=== PATIENT | male | born 1960 ===

== ENCOUNTER 2018-01-04 21:12 | Inpatient (IN) | payer MEDICAID ==
--- NOTE | 2018-01-04 22:00 | ED PDOC ---
HPI: Abdomen Time Seen by Provider: 01/04/18 21:19 Chief Complaint (Nursing): Abdominal Pain Chief Complaint (Provider): Abdominal Pain History Per: Patient History/Exam Limitations: no limitations Onset/Duration Of Symptoms: Days Current Symptoms Are (Timing): Still Present Additional Complaint(s): 57 y/o female with a PMHx of ulcerative colitis presents to the ED for evaluation of abdominal pain, onset two months ago. Patient reports he was recently hospitalized at [facility] for approximately 2 months and discharged home a few days ago. Upon returning home, patient reports pain worsened despite medications prescribed to him. Patient additionally reports pain is associated with blood in diarrhea, 10-15 pounds of unintentional weight loss, lack of appetite and generalized weakness. Patient states he was unaware of fevers but was told by EMS he had a fever. PMD: No Provider Past Medical History Reviewed: Historical Data, Nursing Documentation, Vital Signs Vital Signs: Last Vital Signs Temp 98.6 F 01/05/18 03:52 Pulse 112 H 01/05/18 03:52 Resp 20 01/05/18 03:52 BP 129/83 01/05/18 03:52 Pulse Ox 98 01/05/18 03:04 - Medical History Other PMH: Ulcerative Colitis - Surgical History Surgical History: No Surg Hx - Family History Family History: States: Unknown Family Hx - Home Medications Home Medications: Ambulatory Orders Medication Instructions Recorded Mesalamine [Lialda] 1 tab PO QID 01/05/18 predniSONE [predniSONE Tab] 1 tab PO ASDIR 01/05/18 - Allergies Allergies/Adverse Reactions: Allergies Allergy/AdvReac Type Severity Reaction Status Date / Time No Known Allergies Allergy Verified 01/04/18 21:19 Review of Systems ROS Statement: Except As Marked, All Systems Reviewed And Found Negative Constitutional: Positive for: Fever, Weakness, Weight loss Gastrointestinal: Positive for: Abdominal Pain, Diarrhea, Other (Decreased Appetite) Physical Exam - Reviewed Nursing Documentation Reviewed: Yes Vital Signs Reviewed: Yes - Physical Exam Appears: Positive for: No Acute Distress Head Exam: Positive for: ATRAUMATIC, NORMOCEPHALIC Skin: Negative for: Normal Color (vitiligo) Eye Exam: Positive for: Normal appearance, EOMI, PERRL ENT: Positive for: Other (Dry Mucous Membranes) Neck: Positive for: Normal, Painless ROM Cardiovascular/Chest: Positive for: Tachycardia Respiratory: Positive for: Normal Breath Sounds. Negative for: Respiratory Distress Gastrointestinal/Abdominal: Positive for: Tenderness (Mild diffuse tenderness) Extremity: Positive for: Normal ROM. Negative for: Deformity Neurologic/Psych: Positive for: Alert, Oriented. Negative for: Motor/Sensory Deficits - Laboratory Results Result Diagrams: 01/04/18 22:11 01/04/18 22:11 - ECG O2 Sat by Pulse Oximetry: 100 (RA) Pulse Ox Interpretation: Normal Medical Decision Making Medical Decision Making: Time: 2144 Impression: 57 y/o male with abdominal pain, weight loss and diarrhea, insetting of ulcerative colitis Plan: -- CT Abd/Pelvis IV Contrast -- EKG -- CMP -- Lact Acid, Plasma -- Lipase -- ED Urine Dipstick -- CBC with differentials -- PTT -- Prothrombin Time -- CXR Portable -- Tylenol 975 mg PO -- Blood Culture -- Stool culture -- Heplock Insertion -- Urinalysis 0046 Abd/Pelvis CT FINDINGS: Lung bases: Unremarkable. No mass. No consolidation. ABDOMEN: Liver: Unremarkable. No mass. Gallbladder and bile ducts: Unremarkable. No calcified stones. No ductal dilation. Pancreas: Unremarkable. No mass. No ductal dilation. No CT findings of acute pancreatitis. Spleen: Unremarkable. No splenomegaly. Adrenals: Unremarkable. No mass. Kidneys and ureters: Unremarkable. No solid mass. No hydronephrosis. Stomach and bowel: Air-fluid levels throughout the colon suggests a diarrheal state. Perhaps mild colon wall thickening mostly in the descending and rectosigmoid colon. Prominent gaseous dilation of the transverse colon with perhaps mild wall thickening. Prominent vessels involving the PELVIS: Appendix: No findings to suggest acute appendicitis. Bladder: Unremarkable. No mass. Reproductive: Unremarkable as visualized. ABDOMEN and PELVIS: Intraperitoneal space: Unremarkable. No free air. No significant fluid collection. Bones/joints: No acute fracture. No dislocation. Soft tissues: Unremarkable. Vasculature: See above. Lymph nodes: Unremarkable. No enlarged lymph nodes. IMPRESSION: 1. Inflammatory or infectious colitis involving mostly the transverse colon to the rectum. 2. No CT findings of acute pancreatitis. Dictated and Authenticated by: Fredi Walker MD 01/05/2018 12:46 AM Eastern Time ([place] & [place]) 2112 Labs reviewed and show no significant abnormality except for elevated lactic acid level most likely related to sever dehydration given patient's history of diarrhea. Ordered additional IV fluid bolus and IV cipro and flagyl. Patient is to be admitted for dehydration and sepsis. Will speak to Dr. Mak, the hospitalist, for admission. Scribe Attestation: Documented by Rolando Canada acting as a scribe for Daquan Myers MD. Provider Scribe Attestation: All medical record entries made by the Scribe were at my direction and personally dictated by me. I have reviewed the chart and agree that the record accurately reflects my personal performance of the history, physical exam, medical decision making, and the department course for this patient. I have also personally directed, reviewed, and agree with the discharge instructions and disposition. Disposition - Clinical Impression Clinical Impression: Abdominal pain, Dehydration, Sepsis - Patient ED Disposition Is Patient to be Admitted: Yes - Disposition Disposition Time: 01:34 Condition: FAIR
[2018-01-04] MEDS ORDERED: Sodium Chloride 0.9% 1,000 ML IV STA ×2 (22:10→23:53)
[2018-01-04 22:22] LABS: BASO % 0.2 % (0.0-2.0); HEMOGLOBIN 9.8 g/dL (12.0-18.0); LYMPH # 0.4 K/uL (1.0-4.3); LYMPH % 15.8 % (20.0-40.0); MEAN CORPUSCULAR HEMOGLOBIN 29.9 pg (27.0-31.0); MEAN CORPUSCULAR HGB CONC 32.2 g/dL (33.0-37.0); MEAN PLATELET VOLUME 8.5 fl (7.2-11.7); MONO # 0.1 K/uL (0.0-0.8); MONO % 5.4 % (0.0-10.0); NEUT # 1.9 K/uL (1.8-7.0); NEUT % 78.6 % (50.0-75.0); NRBC % 1.5 % (0.0-0.0); RBC 3.26 Mil/uL (4.40-5.90); WHITE BLOOD COUNT 2.5 K/uL (4.8-10.8)
[2018-01-04 22:31] LABS: INR 1.5; PROTHROMBIN TIME 16.4 Seconds (9.8-13.1)
[2018-01-04 22:33] LABS: PARTIAL THROMBOPLASTIN TIME 28.9 Seconds (25.6-37.1)
[2018-01-04 22:36] LABS: ALB/GLOB RATIO 0.7 (1.0-2.1); ALBUMIN 2.4 g/dL (3.5-5.0); ALT/SGPT 22 U/L (21-72); AST/SGOT 31 U/L (17-59); BLOOD UREA NITROGEN 26 mg/dl (9-20); CALCIUM 7.6 mg/dL (8.4-10.2); GFR NON-AFRICAN AMERICAN > 60; LIPASE 55 U/L (23-300)
[2018-01-04] MEDS ORDERED: Sodium Chloride 0.9% 50 ML IV ONE (23:32)
[2018-01-04] MEDS ORDERED: Iohexol 300 100 ML IJ ONE (23:32)
[2018-01-05] MEDS ORDERED: metroNIDAZOLE 500mg/100ml NS 100 ML IVPB STA (00:51)
[2018-01-05] MEDS ORDERED: Ciprofloxacin 400mg/200ml D5W 400 MG/200 ML BAG IV STA (00:51)
[2018-01-05] MEDS ORDERED: metroNIDAZOLE 500mg/100ml NS 100 ML IVPB ONE (01:53)
[2018-01-05] MEDS ORDERED: Sodium Chloride 0.9% 1,000 ML IV STA (02:28)
[2018-01-05] MEDS ORDERED: Ciprofloxacin 400mg/200ml D5W 400 MG/200 ML BAG IVPB ONE (02:38)
[2018-01-05] MEDS: Dextrose 5%/Lactated Ringer's 1,000 ML IV SCH ×2 (06:52→19:00)
--- NOTE | 2018-01-05 08:44 | RAD ---
Date of service: 01/04/2018 HISTORY: chest pain COMPARISON: No prior. FINDINGS: LUNGS: The lungs are well inflated and clear. PLEURA: No significant pleural effusion identified, no pneumothorax apparent. CARDIOVASCULAR: Normal. OSSEOUS STRUCTURES: No significant abnormalities. VISUALIZED UPPER ABDOMEN: Normal. OTHER FINDINGS: None. IMPRESSION: No active pulmonary disease.
[2018-01-05] MEDS: Ciprofloxacin 400mg/200ml D5W 400 MG/200 ML BAG IVPB SCH ×2 (08:56→21:03)
[2018-01-05] MEDS: metroNIDAZOLE 500mg/100ml NS 100 ML IVPB SCH ×2 (09:05→17:05)
--- NOTE | 2018-01-05 09:07 | CARD ---
APPROVED REPORT Date of service: 01/04/2018 <Conclusion> Sinus tachycardia T wave abnormality, consider lateral ischemia Abnormal ECG
--- NOTE | 2018-01-05 09:33 | CP.PCM.CON ---
History of Present Illness - History of Present Illness History of Present Illness: PGY-4 GI Fellow Consult Note Pt is a 57 yo Hisp Male with reported h/o Ulcerative Colitis (dx 10 years ago, on steroids currently and previously on mesalamine) presenting with abdominal pain and bloody diarrhea. He states he has had chronic epigastric abd pain for weeks to months associated with loose watery, occasionally bloody stools. Pain is mostly non-radiating and worse with PO intake of any kinds. States he has had decreased appetite and not able to each much in the last several months due to these symptoms. States he has been seen and evaluated at both [facility] without clear relief not information about what is going on. States that he had Colonoscopy done about 1 month ago at [place]. States the was prescribed mesalamine in the past, but states he has not been taking for several weeks to months since he though it was making his symptoms worse. 12 point ROS negative other than stated above MHx: See above SurgHx: Denied Meds: Reviewed in MAR/chart FamHx: Denied fam h/o GI Probs SocHx: Denied x 3 All: NKDA Past Patient History - Past Medical History & Family History Past Medical History?: Yes - Past Social History Smoking Status: Never Smoked - CARDIAC Hx Cardiac Disorders: No - PULMONARY Hx Respiratory Disorders: No - NEUROLOGICAL Hx Neurological Disorder: No - HEENT Hx HEENT Problems: No - RENAL Hx Chronic Kidney Disease: No - ENDOCRINE/METABOLIC Hx Endocrine Disorders: No - HEMATOLOGICAL/ONCOLOGICAL Hx Blood Disorders: No - INTEGUMENTARY Hx Dermatological Problems: No - MUSCULOSKELETAL/RHEUMATOLOGICAL Hx Musculoskeletal Disorders: No Hx Falls: No - GASTROINTESTINAL Hx Gastrointestinal Disorders: Yes Hx Colitis: Yes - GENITOURINARY/GYNECOLOGICAL Hx Genitourinary Disorders: No - PSYCHIATRIC Hx Psychophysiologic Disorder: No Hx Substance Use: No - SURGICAL HISTORY Hx Surgeries: No - ANESTHESIA Hx Anesthesia: No Hx Anesthesia Reactions: No Hx Malignant Hyperthermia: No Has any member of the family had a problem w/ anesthesia?: No Meds Allergies/Adverse Reactions: Allergies Allergy/AdvReac Type Severity Reaction Status Date / Time No Known Allergies Allergy Verified 01/04/18 21:19 - Medications Medications: Current Medications Famotidine (Pepcid) 40 mg IVP DAILY MARINA Dextrose/Lactated Ringer's (Dextrose 5%/Lactated Ringer's) 1,000 mls @ 80 mls/ hr IV .[id number] [facility] Stop: 01/06/18 06:27 Last Admin: 01/05/18 06:52 Dose: 80 mls/hr Ciprofloxacin (Cipro 400mg/200ml Dsw) 400 mg in 200 mls @ 200 mls/hr IVPB Q12 MARINA PRN Reason: Protocol Last Admin: 01/05/18 08:56 Dose: 200 mls/hr Metronidazole (Flagyl 500mg/100ml Ns) 100 mls @ 100 mls/hr IVPB Q8 MARINA PRN Reason: Protocol Morphine Sulfate (Morphine) 2 mg IVP Q4 PRN PRN Reason: Pain, moderate (4-7) Physical Exam - Constitutional Appears: No Acute Distress, Unkempt, Chronically Ill - Head Exam Head Exam: ATRAUMATIC, NORMAL INSPECTION - Eye Exam Eye Exam: EOMI. absent: Conjunctival injection, Scleral icterus - ENT Exam ENT Exam: Mucous Membranes Dry, Normal External Ear Exam. absent: Mucous Membranes Moist - Respiratory Exam Respiratory Exam: Clear to Auscultation Bilateral, NORMAL BREATHING PATTERN. absent: Wheezes - Cardiovascular Exam Cardiovascular Exam: REGULAR RHYTHM, RRR - GI/Abdominal Exam GI & Abdominal Exam: Normal Bowel Sounds, Soft, Tenderness (in epigastrum w/o guarding). absent: Bruit, Diminished Bowel Sounds, Distended, Firm, Guarding, Hernia, Hyperactive Bowel Sounds, Hypoactive Bowel Sounds, Mass, Organomegaly, Pulsatile Mass, Rebound, Rigid - Rectal Exam Rectal Exam: Deferred - Extremities Exam Extremities exam: Positive for: normal inspection. Negative for: pedal edema - Neurological Exam Neurological exam: CN II-XII Intact Additional comments: tired, slow speaking - Psychiatric Exam Psychiatric exam: Normal Mood Additional comments: flat affect - Skin Skin Exam: Dry, Intact Results - Vital Signs Recent Vital Signs: Last Vital Signs Temp 98.7 F 01/05/18 08:34 Pulse 102 H 01/05/18 08:34 Resp 18 01/05/18 08:34 BP 132/79 01/05/18 08:34 Pulse Ox 95 01/05/18 08:34 - Labs Result Diagrams: 01/04/18 22:11 01/04/18 22:11 Labs: Laboratory Results - last 24 hr 01/04/18 01/04/18 01/04/18 22:11 22:11 22:11 WBC 2.5 L RBC 3.26 L Hgb 9.8 L Hct 30.3 L MCV 93.0 MCH 29.9 MCHC 32.2 L RDW 17.0 H Plt Count 149 MPV 8.5 Neut % (Auto) 78.6 H Lymph % (Auto) 15.8 L [place] % (Auto) 5.4 Eos % (Auto) 0.0 Baso % (Auto) 0.2 Neut # (Auto) 1.9 Lymph # (Auto) 0.4 L [place] # (Auto) 0.1 Eos # (Auto) 0.0 Baso # (Auto) 0.0 PT INR APTT Sodium 136 Potassium 3.6 Chloride 102 Carbon Dioxide 23 Anion Gap 15 BUN 26 H Creatinine 0.4 L Est GFR ( Amer) > 60 Est GFR (Non-Af Amer) > 60 Random Glucose 125 H Lactic Acid 3.1 H Calcium 7.6 L Total Bilirubin 0.8 AST 31 ALT 22 Alkaline Phosphatase 91 Total Protein 5.8 L Albumin 2.4 L Globulin 3.4 Albumin/Globulin Ratio 0.7 L Lipase 55 C. difficile Ag & Toxin 01/04/18 01/04/18 01/05/18 22:11 23:37 01:50 WBC RBC Hgb Hct MCV MCH MCHC RDW Plt Count MPV Neut % (Auto) Lymph % (Auto) [place] % (Auto) Eos % (Auto) Baso % (Auto) Neut # (Auto) Lymph # (Auto) [place] # (Auto) Eos # (Auto) Baso # (Auto) PT 16.4 H INR 1.5 APTT 28.9 Sodium Potassium Chloride Carbon Dioxide Anion Gap BUN Creatinine Est GFR ( Amer) Est GFR (Non-Af Amer) Random Glucose Lactic Acid 1.7 Calcium Total Bilirubin AST ALT Alkaline Phosphatase Total Protein Albumin Globulin Albumin/Globulin Ratio Lipase C. difficile Ag & Toxin Negative Assessment & Plan - Assessment and Plan (Free Text) Assessment: 57 yo Hisp Male with reported h/o UC presenting with abdominal pain and diarrhea. # Abd Pain, Diarrhea: Unclear etiology. Given reported h/o UC, possible for UC flare and possible infectious diarrhea causing symptoms. CT with signs of possible infectious/inflammatory cause of diarrhea with transverse to rectum involvement. Given abd pain and reported bloody BMs, ischemia is also on the differential. Pt with recent prolonged hospitalization at [place]; therefore , records from that stay would be most helpful in providing history and how best to proceed clinically. Plan: - CTA Abd Pelvis - C diff negative - F/u Stool Cx, O&P - Please obtain records from [facility] regarding recent hospitalization , especially Colonoscopy report Thank you for the consult. Will continue to follow. Please page if questions. Pt seen and examined with Dr. Thompson. Please see his attestation for further recs/changes.
--- NOTE | 2018-01-05 12:04 | CT ---
Date of service: 01/05/2018 PROCEDURE: CT Abdomen and Pelvis with contrast HISTORY: pancreatitis COMPARISON: None. TECHNIQUE: CT scan of the abdomen and pelvis was performed after administration of intravenous contrast. Oral contrast was not administered. Coronal and sagittal reformatted images were obtained. Contrast dose: 95 mL Omnipaque 300 Radiation dose: Total exam DLP = 641.97 mGy-cm. This CT exam was performed using one or more of the following dose reduction techniques: Automated exposure control, adjustment of the mA and/or kV according to patient size, and/or use of iterative reconstruction technique. FINDINGS: LOWER THORAX: There is subsegmental atelectasis in the lung bases. LIVER: Mild hepatomegaly and fatty liver. No gross lesion or ductal dilatation. GALLBLADDER AND BILE DUCTS: The gallbladder is distended. No calcified gallstones. No ductal dilatation. PANCREAS: Normal in size with homogeneous enhancement. No gross lesion or ductal dilatation. SPLEEN: Normal in size and appearance. ADRENALS: No discrete nodule. KIDNEYS AND URETERS: Normal in size with homogeneous enhancement. There are small cortical cysts in the kidneys. No hydronephrosis. No solid mass. VASCULATURE: Unremarkable. No aortic aneurysm. BOWEL: The small bowel loops are normal in caliber. There is moderate dilatation of fluid-filled colon and rectum, diffuse mild circumferential mural thickening and enhancement of the colonic and rectal wall. APPENDIX: Normal appendix. PERITONEUM: No free fluid. No free air. LYMPH NODES: There are prominent mesenteric lymph nodes in the right lower quadrant. BLADDER: Well distended and normal in appearance. REPRODUCTIVE: The prostate gland is normal in size. BONES: No acute fracture. Within normal limits for the patient's age. OTHER FINDINGS: Bilateral small fat containing inguinal hernias, larger on the right. IMPRESSION: Findings are most compatible with acute nonspecific infectious/inflammatory colitis. No evidence of bowel obstruction. Mild hepatomegaly and fatty liver. A preliminary report was provided by [facility].
--- NOTE | 2018-01-05 13:27 | CP.PCM.PCO ---
Assessment & Plan - Assessment and Plan (Free Text) Assessment: Records received from [facility] pt. had multiple admission to [facility] w/ dx of UC s/p Colonoscopy12/23 with colon and rectum biopsy colon L, bx: colonic mucosa with extensive ulceration with prominent acute and chronic inflammation Reactive/regenerative epithelial atypia of residual mucosal lining Negative for CMV (CMV IHC Negative Negative for granulomas, dysplasia or neoplasia Retcum: bx colonic mucosa with mild to moderate chronic colitis (mild crypt distortion, mild to mod chronic lamina propria inflammation Reactive/regenerative epithelial changes Negative for CMV (CMV IHC Negative Negative for granulomas, dysplasia or neoplasia Above d/w Start Solumedrol 30 mg iv q8 PPI IV CTA abdomen/pelvis , eval for ? mesenteric ischemia maintain CLD monitor cbc, cmp in am cont. IV abx
[2018-01-05] MEDS ORDERED: methylPREDNISolone 30 MG in Sodium Chloride 0.9% 50 ML IVPB SCH (13:30)
[2018-01-05] MEDS ORDERED: Iohexol 240 (50 ml) PO ONE (13:38)
--- NOTE | 2018-01-05 16:30 | CP.PCM.HP ---
History of Present Illness - History of Present Illness History of Present Illness: Pt is a 57 y/o male w/ pmhx of Ulcerative Colitis who preented to ED with complaints of worsening abdominal pain and bloody diarrhea. Of note, pt was recently discahrge from [facility] after a 2 month hospitalization for an Acute UC flare. Pt was discharged on Mesalamine and Prednisone but his abdominal pain became worse and he stopped taking mesalamine as he believed it was the culprit to his pain. Denies N/V, fevers, recent travel, lightheadedness. ROS : + generalized weakness PMHX: UC (10 year hx, takes steroids daily) PSurgical Hx: denies. Last colonoscopy 12/23 at [place]. Biopsy negative for neoplasia, +Inflammatory changes c/w UC Medications: Mesalamine 1 tab QID, Prednisone 1 tab PO ASDIR NKDA Social: Denies smoking, alcohol or illicit drug use ] Records received from [facility]- see physician communication note Present on Admission - Present on Admission Any Indicators Present on Admission: No History of DVT/PE: No History of Uncontrolled Diabetes: No Urinary Catheter: No Decubitus Ulcer Present: No Past Patient History - Past Medical History & Family History Past Medical History?: Yes - Past Social History Smoking Status: Never Smoked - CARDIAC Hx Cardiac Disorders: No - PULMONARY Hx Respiratory Disorders: No - NEUROLOGICAL Hx Neurological Disorder: No - HEENT Hx HEENT Problems: No - RENAL Hx Chronic Kidney Disease: No - ENDOCRINE/METABOLIC Hx Endocrine Disorders: No - HEMATOLOGICAL/ONCOLOGICAL Hx Blood Disorders: No - INTEGUMENTARY Hx Dermatological Problems: No - MUSCULOSKELETAL/RHEUMATOLOGICAL Hx Musculoskeletal Disorders: No Hx Falls: No - GASTROINTESTINAL Hx Gastrointestinal Disorders: Yes Hx Colitis: Yes - GENITOURINARY/GYNECOLOGICAL Hx Genitourinary Disorders: No - PSYCHIATRIC Hx Psychophysiologic Disorder: No Hx Substance Use: No - SURGICAL HISTORY Hx Surgeries: No - ANESTHESIA Hx Anesthesia: No Hx Anesthesia Reactions: No Hx Malignant Hyperthermia: No Has any member of the family had a problem w/ anesthesia?: No Meds Allergies/Adverse Reactions: Allergies Allergy/AdvReac Type Severity Reaction Status Date / Time No Known Allergies Allergy Verified 01/04/18 21:19 Physical Exam - Constitutional Appears: No Acute Distress - Head Exam Head Exam: ATRAUMATIC, NORMAL INSPECTION - Eye Exam Eye Exam: Normal appearance, PERRL - ENT Exam ENT Exam: Mucous Membranes Moist - Neck Exam Neck exam: Positive for: Full Rom - Respiratory Exam Respiratory Exam: Clear to Auscultation Bilateral. absent: Rales, Wheezes - Cardiovascular Exam Cardiovascular Exam: REGULAR RHYTHM, +S1, +S2. absent: Systolic Murmur - GI/Abdominal Exam GI & Abdominal Exam: Normal Bowel Sounds, Soft, Tenderness (tenderness to palpation in all quadrant especially in left lower quadrant) - Extremities Exam Extremities exam: Negative for: pedal edema - Neurological Exam Neurological exam: Altered, Oriented x3 - Psychiatric Exam Psychiatric exam: Normal Affect Results - Vital Signs Recent Vital Signs: Last Vital Signs Temp 98.7 F 01/05/18 08:34 Pulse 102 H 01/05/18 08:34 Resp 18 01/05/18 08:34 BP 132/79 01/05/18 08:34 Pulse Ox 95 01/05/18 08:34 - Labs Result Diagrams: 01/04/18 22:11 01/04/18 22:11 Labs: Laboratory Results - last 24 hr 01/04/18 01/04/18 01/04/18 22:11 22:11 22:11 WBC 2.5 L RBC 3.26 L Hgb 9.8 L Hct 30.3 L MCV 93.0 MCH 29.9 MCHC 32.2 L RDW 17.0 H Plt Count 149 MPV 8.5 Neut % (Auto) 78.6 H Lymph % (Auto) 15.8 L [place] % (Auto) 5.4 Eos % (Auto) 0.0 Baso % (Auto) 0.2 Neut # (Auto) 1.9 Lymph # (Auto) 0.4 L [place] # (Auto) 0.1 Eos # (Auto) 0.0 Baso # (Auto) 0.0 PT INR APTT Sodium 136 Potassium 3.6 Chloride 102 Carbon Dioxide 23 Anion Gap 15 BUN 26 H Creatinine 0.4 L Est GFR ( Amer) > 60 Est GFR (Non-Af Amer) > 60 Random Glucose 125 H Lactic Acid 3.1 H Calcium 7.6 L Total Bilirubin 0.8 AST 31 ALT 22 Alkaline Phosphatase 91 Total Protein 5.8 L Albumin 2.4 L Globulin 3.4 Albumin/Globulin Ratio 0.7 L Lipase 55 C. difficile Ag & Toxin 01/04/18 01/04/18 01/05/18 22:11 23:37 01:50 WBC RBC Hgb Hct MCV MCH MCHC RDW Plt Count MPV Neut % (Auto) Lymph % (Auto) [place] % (Auto) Eos % (Auto) Baso % (Auto) Neut # (Auto) Lymph # (Auto) [place] # (Auto) Eos # (Auto) Baso # (Auto) PT 16.4 H INR 1.5 APTT 28.9 Sodium Potassium Chloride Carbon Dioxide Anion Gap BUN Creatinine Est GFR ( Amer) Est GFR (Non-Af Amer) Random Glucose Lactic Acid 1.7 Calcium Total Bilirubin AST ALT Alkaline Phosphatase Total Protein Albumin Globulin Albumin/Globulin Ratio Lipase C. difficile Ag & Toxin Negative Assessment & Plan (1) Colitis Status: Acute (2) Abdominal pain Status: Acute (3) Hematochezia Status: Acute - Assessment and Plan (Free Text) Assessment: 57 y/o male with pmhx of UC presents with abdominal pain and bloody BM's. -Pt states abdominal pain improved but still presents, 1BM this am, no blood -CT Abdomen/Pelvis, signs suggestive of infectious/inflammatory colitis from transverse colon to rectum -Gastroenterology Consulted -C Diff negative, F/U repeat -F/u Stool Cx, O&P -Empiric Abx: Cipro and Flagyl -Angio or Abdomen and Pelvis ordered by GI -Liquid diet -Methylprednisone 30mg IVP q8 -Pepcid daily Discussed Case With Dr. Aubree Muñoz, PGY2
[2018-01-05] MEDS: MethylPREDNISolone 40 mg Vial IVP SCH (16:48)
[2018-01-06] MEDS: Dextrose 5%/Lactated Ringer's 1,000 ML IV SCH ×3 (00:01→16:37)
[2018-01-06] MEDS: MethylPREDNISolone 40 mg Vial IVP SCH ×2 (00:43→09:35)
[2018-01-06] MEDS: metroNIDAZOLE 500mg/100ml NS 100 ML IVPB SCH ×3 (00:48→16:37)
[2018-01-06 06:36] LABS: HEMOGLOBIN 7.7 g/dL (12.0-18.0); MEAN CELL VOLUME 91.9 fl (80.0-94.0); MEAN CORPUSCULAR HEMOGLOBIN 30.2 pg (27.0-31.0); MEAN CORPUSCULAR HGB CONC 32.9 g/dL (33.0-37.0); RBC 2.55 Mil/uL (4.40-5.90); RED CELL DISTRIBUTION WIDTH 16.7 % (11.5-14.5)
[2018-01-06 06:52] LABS: WHITE BLOOD COUNT 1.4 K/uL (4.8-10.8)
[2018-01-06 07:05] LABS: BLOOD UREA NITROGEN 14 mg/dl (9-20); CALCIUM 7.2 mg/dL (8.4-10.2); GFR NON-AFRICAN AMERICAN > 60
[2018-01-06] MEDS ORDERED: Potassium Chloride 20 mEq ER Tab PO ONE (09:00)
--- NOTE | 2018-01-06 10:07 | CP.PCM.PN ---
Subjective - Date & Time of Evaluation Date of Evaluation: 01/06/18 Time of Evaluation: 09:10 - Subjective Subjective: PGY-4 GI Fellow Prog Note Pt lying in bed when seen this AM. States abd pain about the same as yesterday , no better or worse. States he is eating some without any worsening pain and plans to try to eat more. Also reports some yellow BMs, denying any red or black stool. 5 point ROS negative other than stated above Objective - Vital Signs/Intake and Output Vital Signs (last 24 hours): Temp Pulse Resp BP Pulse Ox 97.4 F L 87 20 135/80 98 01/06/18 08:40 01/06/18 08:40 01/06/18 08:40 01/06/18 08:40 01/06/18 08:40 - Medications Medications: Current Medications Famotidine (Pepcid) 40 mg IVP DAILY [facility] Last Admin: 01/06/18 09:42 Dose: 40 mg Ciprofloxacin (Cipro 400mg/200ml Dsw) 400 mg in 200 mls @ 200 mls/hr IVPB Q12 [facility] PRN Reason: Protocol Last Admin: 01/05/18 21:03 Dose: 200 mls/hr Methylprednisolone (Solu-Medrol) 30 mg IVP Q8 [facility] Last Admin: 01/06/18 09:35 Dose: 30 mg Morphine Sulfate (Morphine) 2 mg IVP Q4 PRN PRN Reason: Pain, moderate (4-7) Last Admin: 01/06/18 09:42 Dose: 2 mg - Labs Labs: 01/06/18 05:30 01/06/18 05:30 PT 16.4 Seconds (9.8-13.1) H 01/04/18 22:11 INR 1.5 01/04/18 22:11 APTT 28.9 Seconds (25.6-37.1) 01/04/18 22:11 - Constitutional Appears: No Acute Distress, Chronically Ill - Head Exam Head Exam: ATRAUMATIC, NORMAL INSPECTION - Eye Exam Eye Exam: EOMI. absent: Conjunctival injection, Scleral icterus - ENT Exam ENT Exam: Mucous Membranes Dry, Normal External Ear Exam. absent: Mucous Membranes Moist - Respiratory Exam Respiratory Exam: NORMAL BREATHING PATTERN. absent: Accessory Muscle Use - Cardiovascular Exam Cardiovascular Exam: REGULAR RHYTHM, RRR - GI/Abdominal Exam GI & Abdominal Exam: Soft, Tenderness (mostly in R half of abd w/o guarding), Normal Bowel Sounds. absent: Bruit, Distended, Firm, Guarding, Rigid, Diminished Bowel Sounds, Hernia, Hyperactive Bowel Sounds, Pulsatile Mass, Rebound Assessment and Plan - Assessment and Plan (Free Text) Assessment: 57 yo Hisp Male with reported h/o UC presenting with abdominal pain and diarrhea. # Abd Pain, Diarrhea: Suspect related to UC flare and possible infectious diarrhea causing symptoms. CT with signs of possible infectious/inflammatory cause of diarrhea with transverse to rectum involvement. Given abd pain and reported bloody BMs, ischemia is also on the differential. Records from [place] appreciated and sig for evidence of IBD. Therefore, steroids start, but plan to hold now given severe leukopenia. C diff negative. # Pancytopenia: All cell lines down. HIV pending. No signs of bleeding. Plan: - Hold further steroids given leukopenia - Recommend Hematology evaluation for pancytopenia - HIV pending - Transfuse for goal Hgb of 8 - CTA Abd Pelvis pending - F/u Stool Cx, O&P Thank you for the consult. Will continue to follow. Please page if questions. Pt discussed with Dr. Thompson. Please see his attestation for further recs/ changes.
[2018-01-06] MEDS: Ciprofloxacin 400mg/200ml D5W 400 MG/200 ML BAG IVPB SCH ×2 (11:04→20:24)
[2018-01-06 12:05] LABS: HEMOGLOBIN 7.2 g/dL (12.0-18.0); MEAN CELL VOLUME 92.6 fl (80.0-94.0); MEAN CORPUSCULAR HEMOGLOBIN 30.2 pg (27.0-31.0); MEAN CORPUSCULAR HGB CONC 32.7 g/dL (33.0-37.0); RBC 2.39 Mil/uL (4.40-5.90)
[2018-01-06 12:16] LABS: WHITE BLOOD COUNT 0.9 K/uL (4.8-10.8)
[2018-01-06] MEDS ORDERED: Iodixanol 320 MG/ML 100 ML BOTTLE IV ONE (15:44)
[2018-01-06] MEDS ORDERED: Sodium Chloride 0.9% 50 ML IV ONE (15:44)
--- NOTE | 2018-01-06 15:55 | CP.PCM.PN ---
Subjective - Date & Time of Evaluation Date of Evaluation: 01/06/18 Time of Evaluation: 07:00 - Subjective Subjective: No acute events overnight. Pt states he had 2 BM- both non bloody. Still endorses abdominal pain, same as yesterday. Denies N/V, fever/chills. Objective - Vital Signs/Intake and Output Vital Signs (last 24 hours): Temp Pulse Resp BP Pulse Ox 97.4 F L 87 20 135/80 98 01/06/18 08:40 01/06/18 08:40 01/06/18 08:40 01/06/18 08:40 01/06/18 08:40 - Medications Medications: Current Medications Famotidine (Pepcid) 40 mg IVP DAILY [facility] Last Admin: 01/06/18 09:42 Dose: 40 mg Ciprofloxacin (Cipro 400mg/200ml Dsw) 400 mg in 200 mls @ 200 mls/hr IVPB Q12 [facility] PRN Reason: Protocol Last Admin: 01/06/18 11:04 Dose: 200 mls/hr Metronidazole (Flagyl 500mg/100ml Ns) 100 mls @ 100 mls/hr IVPB Q8 [facility] PRN Reason: Protocol Dextrose/Lactated Ringer's (Dextrose 5%/Lactated Ringer's) 1,000 mls @ 80 mls/ hr IV .[id number] [facility] Stop: 01/07/18 14:16 Morphine Sulfate (Morphine) 2 mg IVP Q4 PRN PRN Reason: Pain, moderate (4-7) Last Admin: 01/06/18 09:42 Dose: 2 mg - Labs Labs: 01/06/18 11:50 01/06/18 05:30 PT 16.4 Seconds (9.8-13.1) H 01/04/18 22:11 INR 1.5 01/04/18 22:11 APTT 28.9 Seconds (25.6-37.1) 01/04/18 22:11 - Constitutional Appears: No Acute Distress - Head Exam Head Exam: NORMAL INSPECTION - Eye Exam Eye Exam: Normal appearance - ENT Exam ENT Exam: Mucous Membranes Moist - Respiratory Exam Respiratory Exam: Clear to Ausculation Bilateral - Cardiovascular Exam Cardiovascular Exam: REGULAR RHYTHM - GI/Abdominal Exam GI & Abdominal Exam: Soft, Tenderness (All quadrants, marked in left lower quadrant) - Extremities Exam Extremities Exam: Full ROM. absent: Pedal Edema - Neurological Exam Neurological Exam: Alert, Oriented x3 - Psychiatric Exam Psychiatric exam: Normal Affect - Skin Skin Exam: Normal Color Assessment and Plan (1) Colitis Status: Acute (2) Abdominal pain Status: Acute (3) Hematochezia Status: Acute (4) Pancytopenia Status: Acute - Assessment and Plan (Free Text) Assessment: 57 y/o male with pmhx of UC presents with abdominal pain and bloody BM's, found to have colitis and pancytopenia. -Gi on board: Etiology UC flare vs ischemia. CTAngio orderd, pending. -Pancytopenia: unknown etiology. Hematology consulted, Dr. Chavira. Will transfuse 2 units PRBC. Repeat CBC in the am -C/W current management Discussed case with Dr. Aubree Muñoz, PGY2
[2018-01-06 15:56] LABS: IRON 31 ug/dL (49-181)
[2018-01-06 16:05] LABS: % IRON SATURATION 20 % (20-55); TOTAL IRON BINDING CAPACITY 150 ug/dL (250-450)
--- NOTE | 2018-01-06 17:59 | CT ---
CTA abdomen and pelvis performed 01/06/18 Indication: Abdominal pain, bloody diarrhea Comparison: CT abdomen and pelvis with IV contrast performed 01/05/18 Technique: Contrast dose: 90 cc Visipaque 320 IV Total exam DLP: 1369.27 Axial computed tomographic angiogram images of the abdomen and pelvis were performed after bolus administration of nonionic intravenous contrast. Multiplanar, 3D (maximum intensity projection) reconstructions of the aorta were created in the coronal and sagittal planes by the neurology technologist. This CT exam was performed using 1 or more of the falling dose reduction techniques: Automated exposure control, adjustment of the MAA and/or kV according to patient size, and/or use of iterative reconstruction technique. Findings: Limited views of the inferior thorax appear unremarkable without visible pleural effusion or pneumothorax. There is normal course and contour of the abdominal aorta and common iliac arteries. The celiac artery origin is widely patent. The superior mesenteric artery origin is widely patent. The inferior mesenteric artery origin is patent. Bilateral renal artery origins appear patent. Hypoattenuation of the liver compatible with hepatic steatosis. Borderline hepatomegaly. Gallbladder distension. The pancreas, spleen, and adrenal glands appear unremarkable. The kidneys enhance symmetrically without evidence of hydronephrosis or obstructing renal calculi. Small bilateral renal cysts. No enlarged abdominal lymphadenopathy is identified. Gaseous distension of the stomach. No evidence of bowel obstruction. Distention of the fluid-filled colon and rectum as on prior study with mild circumferential mural thickening. The appendix appears normal. No inflammatory changes are seen in the right lower quadrant to suggest acute appendicitis. No definite free air. The urinary bladder appears unremarkable. The prostate measures approximately 3.7 x 4.3 cm. Nonspecific mesenteric lymph nodes. Right greater than left fat containing inguinal hernias. No significant pelvic free fluid is identified. No acute osseous abnormality is identified. Impression: Evidence of colitis as above. No evidence of bowel obstruction. Gaseous distension of the stomach. Borderline hepatomegaly. Hypoattenuation of the liver compatible with hepatic steatosis. Gallbladder distension. Additional findings as above.
--- NOTE | 2018-01-06 22:56 | CP.PCM.CON ---
History of Present Illness - History of Present Illness History of Present Illness: 57 year old male with a history of ulcerative colitis, presenting with abdominal pain and diarrhea secondary to UC flair, found to be pancytopenic with neutropenia. The patient notes to chronic anemia but he is unaware of having low WBC count. He denies fevers but does have subjective chills. He notes to recent hospitalization at [facility] for UC flair. Past medical history: UC Past surgical history: Denies Family history: Denies hematologic and oncologic problems Social history: Denies tobacco, alcohol, and illicit drug use Allergies: NKA Review of systems: All remaining review of systems including HEENT, cardiovascular, respiratory, gastrointestinal, genitourinary,musculoskeletal, dermatologic,neurologic, and psychiatric are negative unless mentioned in the HPI. Past Patient History - Past Medical History & Family History Past Medical History?: Yes - Past Social History Smoking Status: Never Smoked - CARDIAC Hx Cardiac Disorders: No - PULMONARY Hx Respiratory Disorders: No - NEUROLOGICAL Hx Neurological Disorder: No - HEENT Hx HEENT Problems: No - RENAL Hx Chronic Kidney Disease: No - ENDOCRINE/METABOLIC Hx Endocrine Disorders: No - HEMATOLOGICAL/ONCOLOGICAL Hx Blood Disorders: No - INTEGUMENTARY Hx Dermatological Problems: No - MUSCULOSKELETAL/RHEUMATOLOGICAL Hx Musculoskeletal Disorders: No Hx Falls: No - GASTROINTESTINAL Hx Gastrointestinal Disorders: Yes Hx Colitis: Yes - GENITOURINARY/GYNECOLOGICAL Hx Genitourinary Disorders: No - PSYCHIATRIC Hx Psychophysiologic Disorder: No Hx Substance Use: No - SURGICAL HISTORY Hx Surgeries: No - ANESTHESIA Hx Anesthesia: No Hx Anesthesia Reactions: No Hx Malignant Hyperthermia: No Has any member of the family had a problem w/ anesthesia?: No Meds Allergies/Adverse Reactions: Allergies Allergy/AdvReac Type Severity Reaction Status Date / Time No Known Allergies Allergy Verified 01/04/18 21:19 - Medications Medications: Current Medications Famotidine (Pepcid) 40 mg IVP DAILY [facility] Last Admin: 01/06/18 09:42 Dose: 40 mg Ciprofloxacin (Cipro 400mg/200ml Dsw) 400 mg in 200 mls @ 200 mls/hr IVPB Q12 [facility] PRN Reason: Protocol Last Admin: 01/06/18 20:24 Dose: 200 mls/hr Metronidazole (Flagyl 500mg/100ml Ns) 100 mls @ 100 mls/hr IVPB Q8 [facility] PRN Reason: Protocol Last Admin: 01/06/18 16:37 Dose: 100 mls/hr Dextrose/Lactated Ringer's (Dextrose 5%/Lactated Ringer's) 1,000 mls @ 80 mls/ hr IV .[id number] [facility] Stop: 01/07/18 14:16 Last Admin: 01/06/18 16:37 Dose: 80 mls/hr Morphine Sulfate (Morphine) 2 mg IVP Q4 PRN PRN Reason: Pain, moderate (4-7) Last Admin: 01/06/18 09:42 Dose: 2 mg Physical Exam - Head Exam Head Exam: ATRAUMATIC - Eye Exam Eye Exam: Normal appearance - ENT Exam ENT Exam: Mucous Membranes Dry - Respiratory Exam Respiratory Exam: NORMAL BREATHING PATTERN - Cardiovascular Exam Cardiovascular Exam: +S1, +S2 - GI/Abdominal Exam GI & Abdominal Exam: Normal Bowel Sounds - Extremities Exam Extremities exam: Positive for: normal inspection - Neurological Exam Neurological exam: Oriented x3 - Psychiatric Exam Psychiatric exam: Normal Affect, Normal Mood - Skin Skin Exam: Warm Results - Vital Signs Recent Vital Signs: Last Vital Signs Temp 97.9 F 01/06/18 21:08 Pulse 84 01/06/18 21:08 Resp 18 01/06/18 21:08 BP 132/81 01/06/18 21:08 Pulse Ox 97 01/06/18 17:05 - Labs Result Diagrams: 01/06/18 11:50 01/06/18 05:30 Labs: Laboratory Results - last 24 hr 01/06/18 01/06/18 01/06/18 05:30 05:30 05:30 WBC 1.4 L* RBC 2.55 L Hgb 7.7 L D Hct 23.4 L MCV 91.9 MCH 30.2 MCHC 32.9 L RDW 16.7 H Plt Count 80 L D Retic Count Sodium 136 Potassium 3.3 L Chloride 106 Carbon Dioxide 26 Anion Gap 7 L BUN 14 Creatinine 0.3 L Est GFR ( Amer) > 60 Est GFR (Non-Af Amer) > 60 Random Glucose 148 H Calcium 7.2 L Iron TIBC % Saturation Ferritin Vitamin B12 Stool Occult Blood C. difficile Ag & Toxin HIV 1&2 Antibody Screen Negative Blood Type Blood Type Confirm Antibody Screen Crossmatch BBK History Checked 01/06/18 01/06/18 01/06/18 11:50 11:50 12:52 WBC 0.9 L* RBC 2.39 L Hgb 7.2 L Hct 22.2 L MCV 92.6 MCH 30.2 MCHC 32.7 L RDW 17.0 H Plt Count 66 L Retic Count Sodium Potassium Chloride Carbon Dioxide Anion Gap BUN Creatinine Est GFR ( Amer) Est GFR (Non-Af Amer) Random Glucose Calcium Iron TIBC % Saturation Ferritin Vitamin B12 Stool Occult Blood C. difficile Ag & Toxin HIV 1&2 Antibody Screen Blood Type B POSITIVE Blood Type Confirm B POSITIVE Antibody Screen Negative Crossmatch See Detail BBK History Checked No verified bt 01/06/18 01/06/18 01/06/18 14:52 14:52 14:52 WBC RBC Hgb Hct MCV MCH MCHC RDW Plt Count Retic Count 2.1 H Sodium Potassium Chloride Carbon Dioxide Anion Gap BUN Creatinine Est GFR ( Amer) Est GFR (Non-Af Amer) Random Glucose Calcium Iron 31 L TIBC 150 L % Saturation 20 Ferritin 449.0 Vitamin B12 > 1000 H Stool Occult Blood C. difficile Ag & Toxin HIV 1&2 Antibody Screen Blood Type Blood Type Confirm Antibody Screen Crossmatch BBK History Checked 01/06/18 01/06/18 17:35 17:35 WBC RBC Hgb Hct MCV MCH MCHC RDW Plt Count Retic Count Sodium Potassium Chloride Carbon Dioxide Anion Gap BUN Creatinine Est GFR ( Amer) Est GFR (Non-Af Amer) Random Glucose Calcium Iron TIBC % Saturation Ferritin Vitamin B12 Stool Occult Blood Positive H C. difficile Ag & Toxin Negative HIV 1&2 Antibody Screen Blood Type Blood Type Confirm Antibody Screen Crossmatch BBK History Checked Assessment & Plan (1) Pancytopenia Assessment and Plan: check hepatitis panel, HIV unclear if medication induced given recent hospitalization retic count, b12, folate, ferritin, copper to further characterize anemia discussed bone marrow biopsy for further evaluation; pt wants to think about it. neutropenic precautions transfusion support PRN Thank you for this interesting consult. Status: Acute
[2018-01-07] MEDS: metroNIDAZOLE 500mg/100ml NS 100 ML IVPB SCH ×3 (00:57→16:30)
[2018-01-07] MEDS: Dextrose 5%/Lactated Ringer's 1,000 ML IV SCH (03:05)
[2018-01-07 07:11] LABS: HEMOGLOBIN 10.7 g/dL (12.0-18.0); MEAN CELL VOLUME 90.5 fl (80.0-94.0); MEAN CORPUSCULAR HEMOGLOBIN 30.5 pg (27.0-31.0); MEAN CORPUSCULAR HGB CONC 33.8 g/dL (33.0-37.0); RBC 3.51 Mil/uL (4.40-5.90); RED CELL DISTRIBUTION WIDTH 15.2 % (11.5-14.5)
[2018-01-07 07:13] LABS: BLOOD UREA NITROGEN 9 mg/dl (9-20); CALCIUM 7.2 mg/dL (8.4-10.2); GFR NON-AFRICAN AMERICAN > 60
--- NOTE | 2018-01-07 07:20 | CP.PCM.PN ---
Subjective - Date & Time of Evaluation Date of Evaluation: 01/07/18 Time of Evaluation: 07:30 - Subjective Subjective: PGY-4 GI Fellow Prog Note Pt lying in bed when see this AM. States feels about the same, but reports that abd pain is no more and states that loose BMs have decreased in frequency. BMs are yellow, denied melena and hematochezia. 5 point ROS negative other than stated above Objective - Vital Signs/Intake and Output Vital Signs (last 24 hours): Temp Pulse Resp BP Pulse Ox 97.4 F L 84 18 140/86 98 01/06/18 23:52 01/06/18 23:52 01/06/18 23:52 01/06/18 23:52 01/06/18 23:52 Intake and Output: 01/07/18 01/07/18 06:59 18:59 Intake Total 670 Balance 670 - Medications Medications: Current Medications Famotidine (Pepcid) 40 mg IVP DAILY [facility] Last Admin: 01/06/18 09:42 Dose: 40 mg Ciprofloxacin (Cipro 400mg/200ml Dsw) 400 mg in 200 mls @ 200 mls/hr IVPB Q12 [facility] PRN Reason: Protocol Last Admin: 01/06/18 20:24 Dose: 200 mls/hr Metronidazole (Flagyl 500mg/100ml Ns) 100 mls @ 100 mls/hr IVPB Q8 [facility] PRN Reason: Protocol Last Admin: 01/07/18 00:57 Dose: 100 mls/hr Dextrose/Lactated Ringer's (Dextrose 5%/Lactated Ringer's) 1,000 mls @ 80 mls/ hr IV .[id number] [facility] Stop: 01/07/18 14:16 Last Admin: 01/07/18 03:05 Dose: Not Given Morphine Sulfate (Morphine) 2 mg IVP Q4 PRN PRN Reason: Pain, moderate (4-7) Last Admin: 01/06/18 09:42 Dose: 2 mg - Labs Labs: 01/07/18 06:15 01/07/18 06:15 PT 16.4 Seconds (9.8-13.1) H 01/04/18 22:11 INR 1.5 01/04/18 22:11 APTT 28.9 Seconds (25.6-37.1) 01/04/18 22:11 - Constitutional Appears: No Acute Distress, Chronically Ill - Head Exam Head Exam: ATRAUMATIC, NORMAL INSPECTION Additional comments: dry flakey skin - Eye Exam Eye Exam: EOMI. absent: Conjunctival injection, Scleral icterus - ENT Exam ENT Exam: Mucous Membranes Dry, Normal External Ear Exam. absent: Mucous Membranes Moist - Respiratory Exam Respiratory Exam: NORMAL BREATHING PATTERN. absent: Wheezes - GI/Abdominal Exam GI & Abdominal Exam: Distended (mildly), Soft, Normal Bowel Sounds. absent: Bruit, Firm, Guarding, Rigid, Tenderness, Mass, Organomegaly, Pulsatile Mass, Rebound Assessment and Plan - Assessment and Plan (Free Text) Assessment: 57 yo Hisp Male with reported h/o UC presenting with abdominal pain and diarrhea. # Abd Pain, Diarrhea: Improved. Suspect related to UC flare and possible infectious diarrhea causing symptoms. CT with signs of possible infectious/ inflammatory cause of diarrhea with transverse to rectum involvement. Given abd pain and reported bloody BMs, ischemia is also on the differential. Records from [place] appreciated and sig for evidence of IBD. Therefore, steroids started on 01/05, but plan to held on 01/06 given severe leukopenia. C diff negative. CTA without significant additional acute findings. # Pancytopenia: All cell lines down. HIV negative. No signs of bleeding. Plan: - Start sulfasalazine 1 g TID - Hold further steroids given leukopenia - Appreciate Hematology eval - Transfuse for goal Hgb of 8 - F/u Stool Cx, O&P - Advanced diet to Low Fat Thank you for the consult. Will continue to follow. Please page if questions. Pt discussed with Dr. Thompson. Please see his attestation for further recs/ changes.
[2018-01-07] MEDS: Ciprofloxacin 400mg/200ml D5W 400 MG/200 ML BAG IVPB SCH ×2 (08:28→22:34)
[2018-01-07] MEDS ORDERED: Potassium Chloride 20 MEQ in Dextrose 5%/Lactated Ringer's 1,000 ML IV SCH (11:39)
[2018-01-07] MEDS ORDERED: Lidocaine 2% Inj (20ml) INFIL ONE (12:29)
[2018-01-07 13:04] LABS: HEPATITIS B SURFACE AG Negative (NEGATIVE)
[2018-01-07 13:10] LABS: HEPATITIS B CORE AB NEGATIVE (NEGATIVE)
[2018-01-07 13:18] LABS: HEPATITIS A IGM NEGATIVE (NEGATIVE)
[2018-01-07 13:22] LABS: HEPATITIS C ANTIBODY NEGATIVE (NEGATIVE)
--- NOTE | 2018-01-07 13:23 | CP.PCM.PN ---
Subjective - Date & Time of Evaluation Date of Evaluation: 01/07/18 Time of Evaluation: 12:00 - Subjective Subjective: Bone marrow aspiration and biopsy procedure Indication: Pancytopenia - Time-out was called to confirm: patients name and date of , procedure, side and site of biopsy, safety procedures followed. - Performed by: self. - Informed consent: signed by patient. - Aspiration and biopsy site: [right] superior posterior iliac crest. - Patient position: [left lateral decubitus] - Preparation and technique: sterile preparation of site with [place], Chloraprep, draped to expose aspirate/biopsy area, local anesthesia with 1% lidocaine (approximately 10ml), frequent pressure application on incision to maintain hemostasis. - Tissue obtained: bone marrow aspirate and biopsy were successfully obtained in sterile manner. - Toleration of procedure and any complications: slight localized bleeding (<1ml ). Patient tolerated procedure well with minimal pain. Objective - Vital Signs/Intake and Output Vital Signs (last 24 hours): Temp Pulse Resp BP Pulse Ox 97.9 F 110 H 20 126/88 99 01/07/18 08:03 01/07/18 08:03 01/07/18 08:03 01/07/18 08:03 01/07/18 08:03 Intake and Output: 01/07/18 01/07/18 06:59 18:59 Intake Total 670 Balance 670 - Medications Medications: Current Medications Famotidine (Pepcid) 40 mg IVP DAILY [facility] Last Admin: 01/07/18 08:29 Dose: 40 mg Ciprofloxacin (Cipro 400mg/200ml Dsw) 400 mg in 200 mls @ 200 mls/hr IVPB Q12 [facility] PRN Reason: Protocol Last Admin: 01/07/18 08:28 Dose: 200 mls/hr Metronidazole (Flagyl 500mg/100ml Ns) 100 mls @ 100 mls/hr IVPB Q8 [facility] PRN Reason: Protocol Last Admin: 01/07/18 08:28 Dose: 100 mls/hr Potassium Chloride 20 meq/ (Dextrose/Lactated Ringer's) 1,010 mls @ 80 mls/hr IV .[id number] [facility] Stop: 01/07/18 14:16 Morphine Sulfate (Morphine) 2 mg IVP Q4 PRN PRN Reason: Pain, moderate (4-7) Last Admin: 01/06/18 09:42 Dose: 2 mg Potassium Chloride (K-Dur 20 Meq Er Tab) 40 meq PO ONCE ONE Stop: 01/07/18 23:01 Sulfasalazine (Azulfidine) 1,000 mg PO TID [facility] PRN Reason: Protocol Last Admin: 01/07/18 12:14 Dose: 1,000 mg - Labs Labs: 01/07/18 06:15 01/07/18 06:15 PT 16.4 Seconds (9.8-13.1) H 01/04/18 22:11 INR 1.5 01/04/18 22:11 APTT 28.9 Seconds (25.6-37.1) 01/04/18 22:11 - Head Exam Head Exam: ATRAUMATIC - Eye Exam Eye Exam: Normal appearance - ENT Exam ENT Exam: Mucous Membranes Dry - Respiratory Exam Respiratory Exam: NORMAL BREATHING PATTERN - Cardiovascular Exam Cardiovascular Exam: +S1, +S2 - GI/Abdominal Exam GI & Abdominal Exam: Normal Bowel Sounds Assessment and Plan (1) Pancytopenia Assessment & Plan: s/p bone marrow biopsy f/u results transfusion support PRN neutropenic precautions Status: Acute
--- NOTE | 2018-01-07 13:29 | PQF ---
PROVIDER RESPONSE TEXT: Provider was unable to determine a response for this query. REVIEWER QUERY TEXT: Rule Out Sepsis Clarification Sepsis is documented in the Medical Record by the ER MD. AFTER WORK-UP . Please clarify whether: -- Patient has sepsis - Please document confirmed, suspected or probable causative organism - Please document confirmed, suspected or probable localized infection - Please clarify if sepsis is related to a device - Please clarify if sepsis was present on admission -- Sepsis was ruled out (include corresponding diagnosis for patient?s clinical picture and treatment ) -- Patient had sepsis which is resolved -- Other, please specify The patient's Clinical Indicators include: Patient with a history of Ulcerative Colitis and a recent admission to [facility] presents wi th abdominal pain, bloody diarrhea, weight loss , weakness and lack of appetite. CT: Inflammatory or infectious colitis involving mostly the transverse colon to the rectum. WBC 2.5-> 1.4 L shift, Lactic Acid 3.1-> 1.7, BLOOD CS No growth 24 hours TEMP: 98.6, 100.5, 99.8, 98.6 x 2, 98.7, 97.7 HR: 146, 111, 112, 112, 102, 100, 101 BP: 153/91, 136/81, 129/83 x 2, 132/79, 137/85, 127/89 R 22, 16, 20, 20, 18, 18, 2 Medication: Cipro and Flagyl IV Query created by: Janet Schuster on 01/06/2018 8:35 AM Electronically signed by: Ana Muñoz 01/07/2018 1:26 PM
--- NOTE | 2018-01-07 19:35 | CP.PCM.PN ---
Subjective - Date & Time of Evaluation Date of Evaluation: 01/07/18 Time of Evaluation: 07:00 - Subjective Subjective: No overnight events. Pt seen and examined this morning. Denies abominal pain. States BM is regular. Discussed plan with patient regarding BM biopsy. Pt is agreeable. Objective - Vital Signs/Intake and Output Vital Signs (last 24 hours): Temp Pulse Resp BP Pulse Ox 97.8 F 84 20 148/85 99 01/07/18 16:36 01/07/18 16:36 01/07/18 16:36 01/07/18 16:36 01/07/18 16:36 - Medications Medications: Current Medications Famotidine (Pepcid) 40 mg PO DAILY [facility] Ciprofloxacin (Cipro 400mg/200ml Dsw) 400 mg in 200 mls @ 200 mls/hr IVPB Q12 [facility] PRN Reason: Protocol Last Admin: 01/07/18 08:28 Dose: 200 mls/hr Metronidazole (Flagyl 500mg/100ml Ns) 100 mls @ 100 mls/hr IVPB Q8 [facility] PRN Reason: Protocol Last Admin: 01/07/18 16:30 Dose: 100 mls/hr Morphine Sulfate (Morphine) 2 mg IVP Q4 PRN PRN Reason: Pain, moderate (4-7) Last Admin: 01/06/18 09:42 Dose: 2 mg Potassium Chloride (K-Dur 20 Meq Er Tab) 40 meq PO ONCE ONE Stop: 01/07/18 23:01 Sulfasalazine (Azulfidine) 1,000 mg PO TID [facility] PRN Reason: Protocol Last Admin: 01/07/18 16:30 Dose: 1,000 mg - Labs Labs: 01/07/18 06:15 01/07/18 06:15 PT 16.4 Seconds (9.8-13.1) H 01/04/18 22:11 INR 1.5 01/04/18 22:11 APTT 28.9 Seconds (25.6-37.1) 01/04/18 22:11 - Constitutional Appears: Well, No Acute Distress - Head Exam Head Exam: NORMAL INSPECTION - Eye Exam Eye Exam: Normal appearance - ENT Exam ENT Exam: Mucous Membranes Moist - Respiratory Exam Respiratory Exam: Clear to Ausculation Bilateral - Cardiovascular Exam Cardiovascular Exam: REGULAR RHYTHM - GI/Abdominal Exam GI & Abdominal Exam: Soft (NOn tender, non distended), Normal Bowel Sounds - Extremities Exam Extremities Exam: Normal Inspection - Neurological Exam Neurological Exam: Alert, Oriented x3 - Psychiatric Exam Psychiatric exam: Normal Mood - Skin Skin Exam: Normal Color Assessment and Plan (1) Colitis Status: Acute (2) Abdominal pain Status: Acute (3) Hematochezia Status: Acute (4) Pancytopenia Status: Acute - Assessment and Plan (Free Text) Assessment: 57 y/o male with pmhx of UC presents with abdominal pain and bloody BM's, found to have colitis and pancytopenia. -Colitis: Symptoms improved GI on board, appreciate recommendations, CT Angio negative -Pancytopenia: Unknown etiology. Hematology consulted, Dr. Chavira. BM Biopsy -Anemia: s/p Transfusion of 2 units PRBC, Hg 10.7 today -C/W current management Discussed case with Dr. Harman Muñoz, PGY2
[2018-01-07] MEDS ORDERED: Potassium Chloride 20 mEq ER Tab PO ONE (23:00)
[2018-01-08] MEDS: metroNIDAZOLE 500mg/100ml NS 100 ML IVPB SCH ×3 (02:00→16:15)
[2018-01-08 06:38] LABS: EOS % 0.1 % (0.0-4.0); HEMOGLOBIN 11.6 g/dL (12.0-18.0); LYMPH # 0.5 K/uL (1.0-4.3); LYMPH % 38.8 % (20.0-40.0); MEAN CELL VOLUME 89.9 fl (80.0-94.0); MEAN CORPUSCULAR HEMOGLOBIN 30.2 pg (27.0-31.0); MEAN CORPUSCULAR HGB CONC 33.6 g/dL (33.0-37.0); MEAN PLATELET VOLUME 8.9 fl (7.2-11.7); MONO # 0.1 K/uL (0.0-0.8); MONO % 5.4 % (0.0-10.0); NEUT # 0.7 K/uL (1.8-7.0); NEUT % 55.7 % (50.0-75.0); NRBC % 1.2 % (0.0-0.0); RBC 3.83 Mil/uL (4.40-5.90); RED CELL DISTRIBUTION WIDTH 15.6 % (11.5-14.5)
[2018-01-08 06:49] LABS: BLOOD UREA NITROGEN 5 mg/dl (9-20); GFR NON-AFRICAN AMERICAN > 60
[2018-01-08 07:15] LABS: WHITE BLOOD COUNT 1.3 K/uL (4.8-10.8)
[2018-01-08] MEDS: Potassium Chl 40 mEq in D5-NS 1,000 ML IV SCH ×2 (08:33→16:14)
[2018-01-08] MEDS: Ciprofloxacin 400mg/200ml D5W 400 MG/200 ML BAG IVPB SCH ×3 (08:34→22:00)
--- NOTE | 2018-01-08 10:09 | CP.PCM.PN ---
Subjective - Date & Time of Evaluation Date of Evaluation: 01/08/18 Time of Evaluation: 08:20 - Subjective Subjective: PGY-4 GI Fellow Prog Note Pt lying in bed when seen this AM. Denies abd pain. States 2 loose yellows stools which is improvement. Denied melena and hematochezia. 5 point ROS negative other than stated above Objective - Vital Signs/Intake and Output Vital Signs (last 24 hours): Temp Pulse Resp BP Pulse Ox 98 F 108 H 20 124/86 98 01/08/18 08:24 01/08/18 08:24 01/08/18 08:24 01/08/18 08:24 01/08/18 08:24 - Medications Medications: Current Medications Cholestyramine Resin (Questran) 4 gm PO ONCE ONE Stop: 01/08/18 10:16 Famotidine (Pepcid) 40 mg PO DAILY [facility] Last Admin: 01/08/18 08:34 Dose: 40 mg Ciprofloxacin (Cipro 400mg/200ml Dsw) 400 mg in 200 mls @ 200 mls/hr IVPB Q12 [facility] PRN Reason: Protocol Last Admin: 01/08/18 08:34 Dose: 200 mls/hr Metronidazole (Flagyl 500mg/100ml Ns) 100 mls @ 100 mls/hr IVPB Q8 [facility] PRN Reason: Protocol Last Admin: 01/08/18 08:33 Dose: 100 mls/hr Potassium Chloride/Dextrose/Sod Cl (D5-Ns1l+40meq Kcl) 1,000 mls @ 125 mls/hr IV .Q8H [facility] Stop: 01/09/18 07:06 Last Admin: 01/08/18 08:33 Dose: 125 mls/hr Morphine Sulfate (Morphine) 2 mg IVP Q4 PRN PRN Reason: Pain, moderate (4-7) Last Admin: 01/06/18 09:42 Dose: 2 mg Sulfasalazine (Azulfidine) 1,000 mg PO TID [facility] PRN Reason: Protocol Last Admin: 01/08/18 08:34 Dose: 1,000 mg - Labs Labs: 01/08/18 05:40 01/08/18 05:40 PT 16.4 Seconds (9.8-13.1) H 01/04/18 22:11 INR 1.5 01/04/18 22:11 APTT 28.9 Seconds (25.6-37.1) 01/04/18 22:11 - Constitutional Appears: No Acute Distress, Chronically Ill - Head Exam Head Exam: ATRAUMATIC, NORMAL INSPECTION Additional comments: areas of hypopigmentation - Eye Exam Eye Exam: EOMI. absent: Conjunctival injection, Scleral icterus - ENT Exam ENT Exam: Mucous Membranes Moist, Normal External Ear Exam. absent: Mucous Membranes Dry - Respiratory Exam Respiratory Exam: NORMAL BREATHING PATTERN. absent: Accessory Muscle Use - GI/Abdominal Exam GI & Abdominal Exam: Soft, Normal Bowel Sounds. absent: Bruit, Distended, Firm , Guarding, Rigid, Tenderness, Mass, Organomegaly, Pulsatile Mass Assessment and Plan - Assessment and Plan (Free Text) Assessment: 57 yo Hisp Male with reported h/o UC presenting with abdominal pain and diarrhea. # Abd Pain, Diarrhea: Improved. Suspect related to UC flare and possible infectious diarrhea causing symptoms. CT with signs of possible infectious/ inflammatory cause of diarrhea with transverse to rectum involvement. Given abd pain and reported bloody BMs, ischemia was on the differential. Records from [place] appreciated and sig for evidence of IBD. Therefore, steroids started on 01/05, but held on 01/06 given severe leukopenia. C diff negative. CTA without significant additional acute findings. # Pancytopenia: All cell lines down. HIV negative. No signs of bleeding. BMBx done 01/07 Plan: - Cont sulfasalazine 1 g TID - Cholestyramine x1 today to help with loose stools - Hold steroids given leukopenia - Appreciate Hematology eval - Transfuse for goal Hgb of 8 - Cont Low Fat diet Thank you for the consult. Will continue to follow as long as pt admitted. Please page if questions. Pt discussed with Dr. Thompson. Please see his attestation for further recs/ changes.
[2018-01-08] MEDS ORDERED: Cholestyramine 4 gm/Pkt UD PO ONE (10:15)
[2018-01-08] MEDS: Potassium Chloride 20 mEq ER Tab PO SCH (14:39)
--- NOTE | 2018-01-08 17:51 | CP.PCM.PN ---
Subjective - Date & Time of Evaluation Date of Evaluation: 01/08/18 Time of Evaluation: 08:00 - Subjective Subjective: No overnight events. Pt denies abdominal stock or bloody diarrhea. Tolerating regular diet. Objective - Vital Signs/Intake and Output Vital Signs (last 24 hours): Temp Pulse Resp BP Pulse Ox 97.8 F 109 H 20 121/86 98 01/08/18 16:09 01/08/18 16:09 01/08/18 16:09 01/08/18 16:09 01/08/18 16:09 - Medications Medications: Current Medications Famotidine (Pepcid) 40 mg PO DAILY [facility] Last Admin: 01/08/18 08:34 Dose: 40 mg Ciprofloxacin (Cipro 400mg/200ml Dsw) 400 mg in 200 mls @ 200 mls/hr IVPB Q12 [facility] PRN Reason: Protocol Last Admin: 01/08/18 08:34 Dose: 200 mls/hr Metronidazole (Flagyl 500mg/100ml Ns) 100 mls @ 100 mls/hr IVPB Q8 [facility] PRN Reason: Protocol Last Admin: 01/08/18 16:15 Dose: 100 mls/hr Potassium Chloride/Dextrose/Sod Cl (D5-Ns1l+40meq Kcl) 1,000 mls @ 125 mls/hr IV .Q8H [facility] Stop: 01/09/18 07:06 Last Admin: 01/08/18 16:14 Dose: Not Given Morphine Sulfate (Morphine) 2 mg IVP Q4 PRN PRN Reason: Pain, moderate (4-7) Last Admin: 01/06/18 09:42 Dose: 2 mg Potassium Chloride (K-Dur 20 Meq Er Tab) 40 meq PO DAILY [facility] Last Admin: 01/08/18 14:39 Dose: 40 meq Sulfasalazine (Azulfidine) 1,000 mg PO TID [facility] PRN Reason: Protocol Last Admin: 01/08/18 16:14 Dose: 1,000 mg - Labs Labs: 01/08/18 05:40 01/08/18 05:40 PT 16.4 Seconds (9.8-13.1) H 01/04/18 22:11 INR 1.5 01/04/18 22:11 APTT 28.9 Seconds (25.6-37.1) 01/04/18 22:11 - Constitutional Appears: No Acute Distress - Head Exam Head Exam: NORMAL INSPECTION - Eye Exam Eye Exam: Normal appearance - ENT Exam ENT Exam: Mucous Membranes Moist - Neck Exam Neck Exam: Full ROM - Respiratory Exam Respiratory Exam: Clear to Ausculation Bilateral. absent: Rales, Wheezes - Cardiovascular Exam Cardiovascular Exam: REGULAR RHYTHM - GI/Abdominal Exam GI & Abdominal Exam: Soft, Normal Bowel Sounds. absent: Tenderness - Extremities Exam Extremities Exam: Normal Inspection. absent: Pedal Edema - Neurological Exam Neurological Exam: Alert, Oriented x3 - Psychiatric Exam Psychiatric exam: Normal Mood - Skin Skin Exam: Normal Color Assessment and Plan (1) Colitis Status: Acute (2) Abdominal pain Status: Acute (3) Hematochezia Status: Acute (4) Pancytopenia Status: Acute - Assessment and Plan (Free Text) Assessment: 57 y/o male with pmhx of UC presents with abdominal pain and bloody BM's, found to have colitis and pancytopenia. -Colitis: Symptoms improved. Started Sulfasalazine yesterday as per GI. Tolerating well. Low Fat Diet. -Pancytopenia: WBC decreased 1.3 today. Unknown etiology. Steroid held. Hematology consulted- BM biopsy completed yesterday. Will f/U results. Neutropenic precautions. -Anemia: s/p Transfusion of 2 units PRBC, Hg stable: 11.7 today -C/W current management -Pt to remain admitted until results of BM Biopsy return as per Dr. Chavira Discussed case with Dr. Harman Muñoz, PGY2
[2018-01-09] MEDS: metroNIDAZOLE 500mg/100ml NS 100 ML IVPB SCH ×3 (01:07→17:41)
[2018-01-09] MEDS: Potassium Chl 40 mEq in D5-NS 1,000 ML IV SCH ×2 (01:08→21:00)
[2018-01-09 07:01] LABS: BASO % 0.1 % (0.0-2.0); EOS % 1.1 % (0.0-4.0); HEMOGLOBIN 11.3 g/dL (12.0-18.0); LYMPH # 0.5 K/uL (1.0-4.3); LYMPH % 44.1 % (20.0-40.0); MEAN CELL VOLUME 89.2 fl (80.0-94.0); MEAN CORPUSCULAR HEMOGLOBIN 30.3 pg (27.0-31.0); MEAN CORPUSCULAR HGB CONC 33.9 g/dL (33.0-37.0); MEAN PLATELET VOLUME 9.7 fl (7.2-11.7); MONO % 3.3 % (0.0-10.0); NEUT # 0.6 K/uL (1.8-7.0); NEUT % 51.4 % (50.0-75.0); NRBC % 1.1 % (0.0-0.0); RBC 3.72 Mil/uL (4.40-5.90); RED CELL DISTRIBUTION WIDTH 15.3 % (11.5-14.5)
[2018-01-09 07:07] LABS: WHITE BLOOD COUNT 1.2 K/uL (4.8-10.8)
[2018-01-09 07:35] LABS: ALB/GLOB RATIO 0.7 (1.0-2.1); ALBUMIN 2.1 g/dL (3.5-5.0); ALT/SGPT 25 U/L (21-72); AST/SGOT 21 U/L (17-59); BLOOD UREA NITROGEN 7 mg/dl (9-20); CALCIUM 6.9 mg/dL (8.4-10.2); GFR NON-AFRICAN AMERICAN > 60
[2018-01-09] MEDS: Potassium Chloride 20 mEq ER Tab PO SCH (09:28)
[2018-01-09] MEDS: Ciprofloxacin 400mg/200ml D5W 400 MG/200 ML BAG IVPB SCH ×2 (09:29→21:12)
--- NOTE | 2018-01-09 17:08 | CP.PCM.PN ---
Subjective - Date & Time of Evaluation Date of Evaluation: 01/09/18 Time of Evaluation: 16:00 - Subjective Subjective: Has diarrhea Objective - Vital Signs/Intake and Output Vital Signs (last 24 hours): Temp Pulse Resp BP Pulse Ox 98.3 F 108 H 18 124/83 98 01/09/18 16:11 01/09/18 16:11 01/09/18 16:11 01/09/18 16:11 01/09/18 16:11 - Medications Medications: Current Medications Famotidine (Pepcid) 40 mg PO DAILY [facility] Last Admin: 01/09/18 09:29 Dose: 40 mg Ciprofloxacin (Cipro 400mg/200ml Dsw) 400 mg in 200 mls @ 200 mls/hr IVPB Q12 [facility] PRN Reason: Protocol Last Admin: 01/09/18 09:29 Dose: 200 mls/hr Potassium Chloride (K-Dur 20 Meq Er Tab) 40 meq PO DAILY [facility] Last Admin: 01/09/18 09:28 Dose: 40 meq Sulfasalazine (Azulfidine) 1,000 mg PO TID [facility] PRN Reason: Protocol Last Admin: 01/09/18 16:25 Dose: Not Given - Labs Labs: 01/09/18 05:20 01/09/18 05:20 PT 16.4 Seconds (9.8-13.1) H 01/04/18 22:11 INR 1.5 01/04/18 22:11 APTT 28.9 Seconds (25.6-37.1) 01/04/18 22:11 - Head Exam Head Exam: ATRAUMATIC - Eye Exam Eye Exam: Normal appearance - ENT Exam ENT Exam: Mucous Membranes Dry - Respiratory Exam Respiratory Exam: NORMAL BREATHING PATTERN - Cardiovascular Exam Cardiovascular Exam: +S1, +S2 - GI/Abdominal Exam GI & Abdominal Exam: Normal Bowel Sounds Assessment and Plan (1) Pancytopenia Assessment & Plan: s/p bone marrow biopsy flow cytometery negative for lymphoproliferative disorder; awaiting further testing transfusion support PRN Status: Acute
--- NOTE | 2018-01-09 21:30 | CP.PCM.PN ---
Subjective - Date & Time of Evaluation Date of Evaluation: 01/09/18 Time of Evaluation: 09:00 - Subjective Subjective: patient seen and examined at bedside this am. no acute events overnight. no new complaints. chart reviewed. no diarrhea or blood in stool. on neutropenic precautions. pending BM biopsy results. Objective - Vital Signs/Intake and Output Vital Signs (last 24 hours): Temp Pulse Resp BP Pulse Ox 98.3 F 108 H 18 124/83 98 01/09/18 16:11 01/09/18 16:11 01/09/18 16:11 01/09/18 16:11 01/09/18 16:11 - Medications Medications: Current Medications Famotidine (Pepcid) 40 mg PO DAILY [facility] Last Admin: 01/09/18 09:29 Dose: 40 mg Ciprofloxacin (Cipro 400mg/200ml Dsw) 400 mg in 200 mls @ 200 mls/hr IVPB Q12 [facility] PRN Reason: Protocol Last Admin: 01/09/18 21:12 Dose: 200 mls/hr Potassium Chloride/Dextrose/Sod Cl (D5-Ns1l+40meq Kcl) 1,000 mls @ 80 mls/hr IV .[id number] [facility] Stop: 01/10/18 21:23 Metronidazole (Flagyl 500mg/100ml Ns) 100 mls @ 100 mls/hr IVPB Q8 [facility] PRN Reason: Protocol Potassium Chloride (K-Dur 20 Meq Er Tab) 40 meq PO DAILY [facility] Last Admin: 01/09/18 09:28 Dose: 40 meq Sulfasalazine (Azulfidine) 1,000 mg PO TID [facility] PRN Reason: Protocol Last Admin: 01/09/18 16:25 Dose: Not Given - Labs Labs: 01/09/18 05:20 01/09/18 05:20 PT 16.4 Seconds (9.8-13.1) H 01/04/18 22:11 INR 1.5 01/04/18 22:11 APTT 28.9 Seconds (25.6-37.1) 01/04/18 22:11 - Constitutional Appears: Non-toxic, No Acute Distress - Head Exam Head Exam: NORMAL INSPECTION - Eye Exam Eye Exam: Normal appearance - Neck Exam Neck Exam: Normal Inspection - Respiratory Exam Respiratory Exam: Clear to Ausculation Bilateral, NORMAL BREATHING PATTERN - Cardiovascular Exam Cardiovascular Exam: REGULAR RHYTHM, +S1, +S2. absent: Murmur - GI/Abdominal Exam GI & Abdominal Exam: Soft, Normal Bowel Sounds - Extremities Exam Extremities Exam: Normal Inspection - Neurological Exam Neurological Exam: Alert, Awake, Oriented x3 - Psychiatric Exam Psychiatric exam: Normal Affect, Normal Mood - Skin Skin Exam: Dry, Intact, Normal Color, Warm Assessment and Plan - Assessment and Plan (Free Text) Assessment: 57 y/o male with pmhx of UC presents with abdominal pain and bloody BM's, found to have colitis and pancytopenia. -Colitis: Symptoms improved. Recently started Sulfasalazine as per GI. Tolerating well. Low Fat Diet. -Pancytopenia: Unknown etiology. Steroid held. Hematology consulted- BM biopsy completed. Will f/U results. Neutropenic precautions. -Anemia: s/p Transfusion of 2 units PRBC, Hg stable -C/W current management -Pt to remain admitted until results of BM Biopsy return as per Dr. Chavira
[2018-01-10] MEDS: metroNIDAZOLE 500mg/100ml NS 100 ML IVPB SCH ×3 (01:08→17:23)
--- NOTE | 2018-01-10 11:00 | PQF ---
PROVIDER RESPONSE TEXT: Provider was unable to determine a response for this query. REVIEWER QUERY TEXT: Pressure Ulcer Type Pressure ulcer is documented in the Medical Record. Please specify the location, present on admission status and stage: Location and laterality of pressure ulcer(s): POA status of each pressure ulcer: -- Not present on admission -- Present on admission -- Other -- Clinically unable to determine -- Unknown Stage of each pressure ulcer (National Pressure Ulcer Advisory Panel definitions): -- Stage I: Intact skin with non-blanchable redness of a localized area -- Stage II: Partial thickness skin loss involving dermis with a shallow open ulcer or an open serum -filled blister -- Stage III: Full thickness skin loss involving damage or necrosis of subcutaneous tissue -- Stage IV: Full thickness skin loss with exposed bone, tendon or muscle -- Unstageable: Full thickness tissue loss in which the base of the ulcer is covered by slough and/o r eschar in the wound bed The patient's Clinical Indicators include: 01/06/12 Wound RN note: Right gluteal cleft stage II pressure ulcer. In the right gluteal cleft is a spit thickness wound with a pink base. This may be from cleansing after BM and laying in bed from wea kness and pain. There is a dry abrasion on the left buttock. Skin prep applied to both. Query created by: Janet Schuster on 01/06/2018 8:26 AM Electronically signed by: Ana Muñoz 01/10/2018 10:57 AM
--- NOTE | 2018-01-10 11:00 | PQF ---
PROVIDER RESPONSE TEXT: Provider was unable to determine a response for this query. REVIEWER QUERY TEXT: Pressure Ulcer Type Pressure ulcer is documented in the Medical Record. Please specify the location, present on admission status and/or stage: Location and laterality of pressure ulcer(s): POA status of each pressure ulcer: -- Not present on admission -- Present on admission -- Other -- Clinically unable to determine -- Unknown Stage of each pressure ulcer (National Pressure Ulcer Advisory Panel definitions): -- Stage I: Intact skin with non-blanchable redness of a localized area -- Stage II: Partial thickness skin loss involving dermis with a shallow open ulcer or an open serum -filled blister -- Stage III: Full thickness skin loss involving damage or necrosis of subcutaneous tissue -- Stage IV: Full thickness skin loss with exposed bone, tendon or muscle -- Unstageable: Full thickness tissue loss in which the base of the ulcer is covered by slough and/o r eschar in the wound bed The patient's Clinical Indicators include: 01/06/12 Wound RN note: Right gluteal cleft stage II pressure ulcer. In the right gluteal cleft is a spit thickness wound with a pink base. This may be from cleansing after BM and laying in bed from wea kness and pain. There is a dry abrasion on the left buttock. Skin prep applied to both. Query created by: Janet Schuster on 01/07/2018 11:06 AM Electronically signed by: Ana Muñoz 01/10/2018 10:57 AM
[2018-01-10] MEDS: Ciprofloxacin 400mg/200ml D5W 400 MG/200 ML BAG IVPB SCH (11:06)
[2018-01-10] MEDS: Potassium Chloride 20 mEq ER Tab PO SCH (11:07)
[2018-01-10 15:12] LABS: MEAN CELL VOLUME 88.8 fl (80.0-94.0); MEAN CORPUSCULAR HEMOGLOBIN 30.4 pg (27.0-31.0); MEAN CORPUSCULAR HGB CONC 34.2 g/dL (33.0-37.0); RBC 3.28 Mil/uL (4.40-5.90); RED CELL DISTRIBUTION WIDTH 15.4 % (11.5-14.5)
[2018-01-10 15:15] LABS: ALB/GLOB RATIO 0.7 (1.0-2.1); ALT/SGPT 23 U/L (21-72); AST/SGOT 19 U/L (17-59); BLOOD UREA NITROGEN 8 mg/dl (9-20); GFR NON-AFRICAN AMERICAN > 60
[2018-01-10 15:17] LABS: CALCIUM 6.3 mg/dL (8.4-10.2)
[2018-01-10 15:23] LABS: WHITE BLOOD COUNT 0.9 K/uL (4.8-10.8)
--- NOTE | 2018-01-10 16:26 | CP.PCM.PN ---
Subjective - Date & Time of Evaluation Date of Evaluation: 01/10/18 Time of Evaluation: 10:00 - Subjective Subjective: patient seen and examined at bedside this am. no acute events overnight. no new complaints. chart reviewed. diarrhea improving. on neutropenic precautions. pending BM biopsy results. refused AM labs. Objective - Vital Signs/Intake and Output Vital Signs (last 24 hours): Temp Pulse Resp BP Pulse Ox 97.7 F 110 H 20 137/84 100 01/10/18 08:28 01/10/18 08:28 01/10/18 08:28 01/10/18 08:28 01/10/18 08:28 - Medications Medications: Current Medications Famotidine (Pepcid) 40 mg PO DAILY [facility] Last Admin: 01/10/18 11:07 Dose: Not Given Potassium Chloride/Dextrose/Sod Cl (D5-Ns1l+40meq Kcl) 1,000 mls @ 80 mls/hr IV .[id number] [facility] Stop: 01/10/18 21:23 Last Admin: 01/09/18 21:00 Dose: 80 mls/hr Metronidazole (Flagyl 500mg/100ml Ns) 100 mls @ 100 mls/hr IVPB Q8 [facility] PRN Reason: Protocol Last Admin: 01/10/18 11:05 Dose: 100 mls/hr Potassium Chloride (K-Dur 20 Meq Er Tab) 40 meq PO DAILY [facility] Last Admin: 01/10/18 11:07 Dose: Not Given Sulfasalazine (Azulfidine) 1,000 mg PO TID [facility] PRN Reason: Protocol Last Admin: 01/10/18 13:00 Dose: Not Given - Labs Labs: 01/10/18 14:20 01/10/18 14:20 PT 16.4 Seconds (9.8-13.1) H 01/04/18 22:11 INR 1.5 01/04/18 22:11 APTT 28.9 Seconds (25.6-37.1) 01/04/18 22:11 - Additional Findings Additional findings: - Constitutional Appears: Non-toxic, No Acute Distress - Head Exam Head Exam: NORMAL INSPECTION - Eye Exam Eye Exam: Normal appearance - Neck Exam Neck Exam: Normal Inspection - Respiratory Exam Respiratory Exam: Clear to Ausculation Bilateral, NORMAL BREATHING PATTERN - Cardiovascular Exam Cardiovascular Exam: REGULAR RHYTHM, +S1, +S2. absent: Murmur - GI/Abdominal Exam GI & Abdominal Exam: Soft, Normal Bowel Sounds - Extremities Exam Extremities Exam: Normal Inspection - Neurological Exam Neurological Exam: Alert, Awake, Oriented x3 - Psychiatric Exam Psychiatric exam: Normal Affect, Normal Mood - Skin Skin Exam: Dry, Intact, Normal Color, Warm Assessment and Plan - Assessment and Plan (Free Text) Assessment: 57 y/o male with pmhx of UC presents with abdominal pain and bloody BM's, found to have colitis and pancytopenia. -Colitis: Symptoms improved. Recently started Sulfasalazine as per GI. Tolerating well. Low Fat Diet. -Pancytopenia: Unknown etiology. Steroid held. Hematology consulted- BM biopsy completed. Will f/U results. Neutropenic precautions. -Anemia: s/p Transfusion of 2 units PRBC, Hg stable -C/W current management agreeable to labs now
[2018-01-10] MEDS: Potassium Chl 40 mEq in D5-NS 1,000 ML IV SCH (17:21)
[2018-01-11] MEDS: metroNIDAZOLE 500mg/100ml NS 100 ML IVPB SCH ×3 (01:35→16:14)
[2018-01-11] MEDS: Potassium Chloride 20 mEq ER Tab PO SCH (08:50)
--- NOTE | 2018-01-11 09:29 | CARD ---
APPROVED REPORT Date of service: 01/09/2018 <Conclusion> Sinus tachycardia Possible Left atrial enlargement Borderline ECG
--- NOTE | 2018-01-11 11:31 | CP.PCM.PN ---
Subjective - Date & Time of Evaluation Date of Evaluation: 01/11/18 Time of Evaluation: 11:31 - Subjective Subjective: patient seen and examined at bedside this am. no acute events overnight. no new complaints. chart reviewed. diarrhea improving. on neutropenic precautions. pending BM biopsy results. Objective - Vital Signs/Intake and Output Vital Signs (last 24 hours): Temp Pulse Resp BP Pulse Ox 98.6 F 115 H 19 129/87 100 01/11/18 08:43 01/11/18 08:43 01/11/18 08:43 01/11/18 08:43 01/11/18 08:43 - Medications Medications: Current Medications Famotidine (Pepcid) 40 mg PO DAILY [facility] Last Admin: 01/11/18 08:50 Dose: 40 mg Metronidazole (Flagyl 500mg/100ml Ns) 100 mls @ 100 mls/hr IVPB Q8 [facility] PRN Reason: Protocol Last Admin: 01/11/18 08:48 Dose: 100 mls/hr Potassium Chloride (K-Dur 20 Meq Er Tab) 40 meq PO DAILY [facility] Last Admin: 01/11/18 08:50 Dose: 40 meq Sulfasalazine (Azulfidine) 1,000 mg PO TID [facility] PRN Reason: Protocol Last Admin: 01/11/18 08:49 Dose: 1,000 mg - Labs Labs: 01/10/18 14:20 01/10/18 14:20 PT 16.4 Seconds (9.8-13.1) H 01/04/18 22:11 INR 1.5 01/04/18 22:11 APTT 28.9 Seconds (25.6-37.1) 01/04/18 22:11 - Additional Findings Additional findings: - Constitutional Appears: Non-toxic, No Acute Distress - Head Exam Head Exam: NORMAL INSPECTION - Eye Exam Eye Exam: Normal appearance - Neck Exam Neck Exam: Normal Inspection - Respiratory Exam Respiratory Exam: Clear to Ausculation Bilateral, NORMAL BREATHING PATTERN - Cardiovascular Exam Cardiovascular Exam: REGULAR RHYTHM, +S1, +S2. absent: Murmur - GI/Abdominal Exam GI & Abdominal Exam: Soft, Normal Bowel Sounds - Extremities Exam Extremities Exam: Normal Inspection - Neurological Exam Neurological Exam: Alert, Awake, Oriented x3 - Psychiatric Exam Psychiatric exam: Normal Affect, Normal Mood - Skin Skin Exam: Dry, Intact, Normal Color, Warm Assessment and Plan - Assessment and Plan (Free Text) Assessment: 57 y/o male with pmhx of UC presents with abdominal pain and bloody BM's, found to have colitis and pancytopenia. -Colitis: Symptoms improved. Recently started Sulfasalazine as per GI. Tolerating well. Low Fat Diet. -Pancytopenia: Unknown etiology. Steroid held. Hematology consulted- BM biopsy completed. Will f/U results. Neutropenic precautions. -Anemia: s/p Transfusion of 2 units PRBC, Hg stable -C/W current management
[2018-01-11 11:40] LABS: BASO % 0.3 % (0.0-2.0); EOS % 1.5 % (0.0-4.0); HEMOGLOBIN 11.1 g/dL (12.0-18.0); LYMPH # 0.5 K/uL (1.0-4.3); LYMPH % 53.7 % (20.0-40.0); MEAN CELL VOLUME 89.1 fl (80.0-94.0); MEAN CORPUSCULAR HEMOGLOBIN 30.6 pg (27.0-31.0); MEAN CORPUSCULAR HGB CONC 34.3 g/dL (33.0-37.0); MEAN PLATELET VOLUME 10.5 fl (7.2-11.7); MONO % 2.5 % (0.0-10.0); NEUT # 0.4 K/uL (1.8-7.0); NRBC % 1.3 % (0.0-0.0); RBC 3.62 Mil/uL (4.40-5.90); RED CELL DISTRIBUTION WIDTH 14.7 % (11.5-14.5)
[2018-01-11 11:42] LABS: WHITE BLOOD COUNT 0.9 K/uL (4.8-10.8)
[2018-01-11] MEDS: Potassium Chl 40 mEq in D5-NS 1,000 ML IV SCH (13:22)
[2018-01-12] MEDS: metroNIDAZOLE 500mg/100ml NS 100 ML IVPB SCH ×4 (00:57→16:45)
[2018-01-12] MEDS: Potassium Chl 40 mEq in D5-NS 1,000 ML IV SCH (01:00)
[2018-01-12] MEDS ORDERED: ZINC IV ONE (11:30)
[2018-01-12] MEDS ORDERED: SODIUM CHLORIDE IV ONE (11:30)
[2018-01-12] MEDS ORDERED: MANGANESE IV ONE (11:30)
[2018-01-12] MEDS ORDERED: CHROMIUM IV ONE (11:30)
[2018-01-12] MEDS ORDERED: COPPER IV ONE (11:30)
--- NOTE | 2018-01-12 12:21 | CP.PCM.PN ---
Subjective - Date & Time of Evaluation Date of Evaluation: 01/12/18 Time of Evaluation: 08:00 - Subjective Subjective: No overnight events. Denies abdominal pain, bloody stools. No new episodes of loose stools as per pt. Objective - Vital Signs/Intake and Output Vital Signs (last 24 hours): Temp Pulse Resp BP Pulse Ox 98.4 F 110 H 19 132/85 99 01/12/18 08:30 01/12/18 08:30 01/12/18 08:30 01/12/18 08:30 01/12/18 08:30 - Medications Medications: Current Medications Famotidine (Pepcid) 40 mg PO DAILY [facility] Last Admin: 01/11/18 08:50 Dose: 40 mg Metronidazole (Flagyl 500mg/100ml Ns) 100 mls @ 100 mls/hr IVPB Q8 [facility]; Protocol Last Admin: 01/12/18 01:30 Dose: Not Given Chromium/Copper/Manganese/Zinc (3 ml/ Sodium Chloride) 1,003 mls @ 125 mls/hr IV .Q8H2M ONE Stop: 01/12/18 19:31 Potassium Chloride (K-Dur 20 Meq Er Tab) 40 meq PO DAILY [facility] Last Admin: 01/11/18 08:50 Dose: 40 meq Sulfasalazine (Azulfidine) 1,000 mg PO TID [facility]; Protocol Last Admin: 01/11/18 16:11 Dose: Not Given - Labs Labs: 01/11/18 11:10 01/10/18 14:20 PT 16.4 Seconds (9.8-13.1) H 01/04/18 22:11 INR 1.5 01/04/18 22:11 APTT 28.9 Seconds (25.6-37.1) 01/04/18 22:11 - Constitutional Appears: Unkempt - Head Exam Head Exam: NORMAL INSPECTION - Eye Exam Eye Exam: Normal appearance - Neck Exam Neck Exam: Full ROM - Respiratory Exam Respiratory Exam: Clear to Ausculation Bilateral - Cardiovascular Exam Cardiovascular Exam: REGULAR RHYTHM - GI/Abdominal Exam GI & Abdominal Exam: Soft, Normal Bowel Sounds - Extremities Exam Extremities Exam: Normal Inspection - Psychiatric Exam Psychiatric exam: Flat Affect - Skin Skin Exam: Dry, Normal Color Assessment and Plan (1) Colitis Status: Acute (2) Abdominal pain Status: Acute (3) Hematochezia Status: Acute (4) Pancytopenia Status: Acute - Assessment and Plan (Free Text) Assessment: 57 y/o male with pmhx of UC presents with abdominal pain and bloody BM's, found to have colitis and pancytopenia s/p BM biopsy. -UC w/ acute colitis, a/w Sulfasalazine as per GI. Tolerating well. Low Fat Diet. -Pancytopenia: BM biopsy normal as per [facility], Dr. Chavira. Pancytopenia likely to copper deficiency due to poor absorption from diet. IV copper replacement started. -Anemia: s/p Transfusion of 2 units PRBC, Hg stable -Evaluate by PT: home w/ services recommended for gait training -C/W current management Discussed case with Dr. Harman Muñoz, PGY2
[2018-01-12 15:06] VITALS: BMI 28.3
[2018-01-12] MEDS: Potassium Chloride 20 mEq ER Tab PO SCH (16:24)
--- NOTE | 2018-01-13 00:13 | CP.PCM.PN ---
Subjective - Date & Time of Evaluation Date of Evaluation: 01/12/18 Time of Evaluation: 23:58 - Subjective Subjective: Patient denies diarrhea and ststes abdominal pain is minimal Objective - Vital Signs/Intake and Output Vital Signs (last 24 hours): Temp Pulse Resp BP Pulse Ox 98.5 F 19 L 118 H 131/86 100 01/12/18 23:57 01/12/18 23:57 01/12/18 23:57 01/12/18 23:57 01/12/18 23:57 - Medications Medications: Current Medications Famotidine (Pepcid) 40 mg PO DAILY [facility] Last Admin: 01/12/18 16:24 Dose: Not Given Metronidazole (Flagyl 500mg/100ml Ns) 100 mls @ 100 mls/hr IVPB Q8 [facility]; Protocol Last Admin: 01/12/18 16:45 Dose: 100 mls/hr Potassium Chloride (K-Dur 20 Meq Er Tab) 40 meq PO DAILY [facility] Last Admin: 01/12/18 16:24 Dose: Not Given Sulfasalazine (Azulfidine) 1,000 mg PO TID [facility]; Protocol Last Admin: 01/12/18 16:44 Dose: Not Given - Labs Labs: 01/11/18 11:10 01/10/18 14:20 PT 16.4 Seconds (9.8-13.1) H 01/04/18 22:11 INR 1.5 01/04/18 22:11 APTT 28.9 Seconds (25.6-37.1) 01/04/18 22:11
[2018-01-13] MEDS: metroNIDAZOLE 500mg/100ml NS 100 ML IVPB SCH ×3 (00:47→18:08)
--- NOTE | 2018-01-13 07:40 | PCM.RRT ---
<Madeline Barron - Last Filed: 01/13/18 10:07> CONSTRUCTION SECRETARY Nurse Assessment - Situation CONSTRUCTION SECRETARY Responder Arrival Time: 07:23 Location: [facility] Room Number: 663-2 CONSTRUCTION SECRETARY Reason for Call: Tachycardia CONSTRUCTION SECRETARY Called By: RN - IV IV Inserted during CONSTRUCTION SECRETARY?: No IV Fluids Initiated During CONSTRUCTION SECRETARY?: 1 L NS bolus; then 150cc/hr afterwards - Diagnostic Test Ordered EKG: Yes Chest X-Ray: No CT Scan: No - Stat Labs Ordered CONSTRUCTION SECRETARY Stat Labs Ordered: CBC CONSTRUCTION SECRETARY Other Labs Ordered: CMP; Blood Culture x2; Lactate CPR started during CONSTRUCTION SECRETARY?: No - Vital Signs Vital Signs: 7:23: BP: 98/69 HR: 132 Temp: 100.5 Pulse ox: 99% room air. - Time CONSTRUCTION SECRETARY Ended Time CONSTRUCTION SECRETARY Ended: 07:33 - Vital Signs at end of CONSTRUCTION SECRETARY Vital Signs at end of CONSTRUCTION SECRETARY: 104/68 T: 100.5 HR: 133 ; O2 sat: 100% RA - Recommendations CONSTRUCTION SECRETARY Level of Care Recommendations: Remain in current setting Notifications: Consultations I.Reason for CONSTRUCTION SECRETARY - A) Acute Change in Patient: Subjective: 7:23 am - CONSTRUCTION SECRETARY called by RN because of tachycardia V/S: 98/69 HR: 132 O2 Sat: 99% RA; T: 100.5 57 yo male admitted for Diarrhea secondary to Ulcerative Colitis found to have tachycardia. Pt is neutropenic. Pt reports feeling weak and tired. Reports he had a few bouts of diarrhea yesterday and this morning 1L bolus of NS given @ 7:25 a.m. Labs ordered: CBC, blood culture x2, CMP, lactate and an EKG was ordered. EKG: sinus tachycardia. Repeat vitals: 7:31 am 104/68 ; HR: 133 ; O2 sat: 100% on room air. 1. Tachycardia and hypotension secondary to dehydration from diarrhea. - Given that patient clinically and vitally improved with 1L bolus of NS, patient is probably dehydrated from bouts of diarrhea. - Continue fluid hydration NS @ 150cc/hr after 1L bolus of NS completed. - ID consult placed - Primary physician notified @ 7:30am. 7:33am - end of CONSTRUCTION SECRETARY. - Neurological Status (Select all that apply): Responsive, Verbal, Lethargic - Respiratory Oxygen Delivery Method: Room Air - Constitutional Appears: No Acute Distress Additional Comments: Lethargic - Head Head Exam: NORMAL INSPECTION - Respiratory Exam Respiratory Exam: Clear to Ausculation Bilateral, NORMAL BREATHING PATTERN. absent: Rales, Rhonchi, Wheezes, Stridor - Cardiovascular Exam Cardiovascular Exam: Tachycardia, +S1, +S2. absent: Diastolic murmur, Gallop, Rubs, +S4, Murmur - GI/Abdominal Exam GI & Abdominal Exam: Distended, Soft. absent: Tenderness - Neurological Exam Additional exam: Lethargic, verbal, able to answer questions appropriately. Plan - Assessment of Findings&Treatment Plan 57 yo M - CONSTRUCTION SECRETARY called because of tachycardia possibly secondary to dehydration. 1. Tachycardia and hypotension secondary to dehydration from diarrhea. - Given that patient clinically and vitally improved with 1L bolus of NS, patient is probably dehydrated from bouts of diarrhea. - Continue fluid hydration NS @ 150cc/hr after 1L bolus of NS completed. - ID consult placed - Primary physician notified @ 7:30am. <Mary Lou Singh - Last Filed: 01/13/18 19:13> CONSTRUCTION SECRETARY Nurse Assessment - Vital Signs Vital Signs: Rapid Response Vital Sign Blood Pressure 98/69 Pulse Rate 132 Respiratory Rate 20 Temperature 100.5 F Oxygen Saturation 100 - Vital Signs at end of CONSTRUCTION SECRETARY Vital Signs at end of CONSTRUCTION SECRETARY: Rapid Response End Vital Sign Blood Pressure 104/68 Pulse Rate 134 Respiratory Rate 20 Temperature 100.5 F O2 Sat by Pulse Oximetry 100 Attending/Attestation - Attestation I have personally seen and examined this patient.: Yes I have fully participated in the care of the patient.: Yes I have reviewed all pertinent clinical information, including history, physical exam and plan: Yes Notes (Text): Sinus Tach sec to Dehydration and Fever Hypotension due to Dehydration Pancytopenia - IVF hydration - Bolus 1 liter NS then 150 ml per hour - stat labs to include CBC , CMP, lactic acid - Pt may need to be started on IV abx- will discuss with PMD - Dr Hammer pt's PMD informed of event
[2018-01-13] MEDS: Sodium Chloride 0.9% 1,000 ML IV SCH ×4 (07:45→14:35)
--- NOTE | 2018-01-13 07:51 | CP.PCM.PCO ---
Assessment/Plan (1) Colitis Current Visit: Yes Status: Acute (2) Abdominal pain Current Visit: Yes Status: Acute (3) Hematochezia Current Visit: Yes Status: Acute (4) Pancytopenia Current Visit: Yes Status: Acute - Assessment and Plan (Free Text) Assessment: A:PASSENGER SOLICITOR called as pt was found to be hypotensive, tachycardic, and febrile. Dr. Singh presents along with rest of medicine team. Labs reviewed- noted to have WBC 1.9, ANC 378. Known pancytpenia 2/2 to copper deficiency. On IV Copper treatment by Dr. Chavira. Has been having ongoing diarrhea for past week on IV Flagyl for Infectious Colitis. P: IV hydration (bolus), CBC, CMP, BCx, UCx. ID Consulted. Start empiric coverage for neutropenic fever- Cefepime 2gm IV q8. Dr. Hammer aware. Ana Muñoz, PGY2
--- NOTE | 2018-01-13 07:53 | CARD ---
APPROVED REPORT Date of service: 01/13/2018 EKG Measurement Heart [id number] <Conclusion> Sinus tachycardia Otherwise normal ECG
[2018-01-13] MEDS: Cefepime 2 GM in Sodium Chloride 0.9% 100 ML IVPB SCH ×3 (07:56→17:27)
[2018-01-13] MEDS ORDERED: Cefepime 2 GM in Sodium Chloride 0.9% 100 ML IVPB SCH (09:00)
[2018-01-13 09:02] LABS: ALB/GLOB RATIO 0.7 (1.0-2.1); ALBUMIN 1.9 g/dL (3.5-5.0); BLOOD UREA NITROGEN 9 mg/dl (9-20); CALCIUM 6.4 mg/dL (8.4-10.2); GFR NON-AFRICAN AMERICAN > 60
[2018-01-13 09:04] LABS: ALT/SGPT 22 U/L (21-72); AST/SGOT 19 U/L (17-59)
[2018-01-13] MEDS: Potassium Chloride 20 mEq ER Tab PO SCH (09:18)
[2018-01-13 10:40] LABS: BASO % 0.5 % (0.0-2.0); EOS % 0.2 % (0.0-4.0); HEMOGLOBIN 8.2 g/dL (12.0-18.0); LYMPH # 0.2 K/uL (1.0-4.3); LYMPH % 55.3 % (20.0-40.0); MEAN CELL VOLUME 88.9 fl (80.0-94.0); MEAN CORPUSCULAR HEMOGLOBIN 30.6 pg (27.0-31.0); MEAN CORPUSCULAR HGB CONC 34.4 g/dL (33.0-37.0); MEAN PLATELET VOLUME 9.8 fl (7.2-11.7); MONO % 2.9 % (0.0-10.0); NEUT # 0.1 K/uL (1.8-7.0); NEUT % 41.1 % (50.0-75.0); NRBC % 0.8 % (0.0-0.0); RBC 2.67 Mil/uL (4.40-5.90); RED CELL DISTRIBUTION WIDTH 15.2 % (11.5-14.5)
[2018-01-13 10:42] LABS: WHITE BLOOD COUNT 0.3 K/uL (4.8-10.8)
--- NOTE | 2018-01-13 10:53 | CP.PCM.PN ---
Subjective - Date & Time of Evaluation Date of Evaluation: 01/11/18 Time of Evaluation: 19:00 - Subjective Subjective: Has diarrhea and abdominal pain. Objective - Vital Signs/Intake and Output Vital Signs (last 24 hours): Temp Pulse Resp BP Pulse Ox 98.9 F 116 H 20 95/60 L 99 01/13/18 10:02 01/13/18 10:02 01/13/18 10:02 01/13/18 10:02 01/13/18 10:02 - Medications Medications: Current Medications Famotidine (Pepcid) 40 mg PO DAILY [facility] Last Admin: 01/13/18 09:17 Dose: Not Given Metronidazole (Flagyl 500mg/100ml Ns) 100 mls @ 100 mls/hr IVPB Q8 [facility]; Protocol Last Admin: 01/13/18 09:19 Dose: 100 mls/hr Cefepime HCl 2 gm/ Sodium (Chloride) 100 mls @ 100 mls/hr IVPB Q8 [facility]; Protocol Last Admin: 01/13/18 09:19 Dose: Not Given Sodium Chloride (Sodium Chloride 0.9%) 1,000 mls @ 500 mls/hr IV .Q2H [facility] Stop: 01/13/18 11:44 Last Admin: 01/13/18 10:34 Dose: 500 mls/hr Sodium Chloride (Sodium Chloride 0.9%) 1,000 mls @ 150 mls/hr IV .Q6H40M [facility] Stop: 01/14/18 07:42 Last Admin: 01/13/18 09:18 Dose: 150 mls/hr Chromium/Copper/Manganese/Zinc (3 ml/ Sodium Chloride) 1,003 mls @ 125 mls/hr IV DAILY [facility] Stop: 01/16/18 17:02 Mesalamine (Delzicol Dr) 800 mg PO TID [facility] Last Admin: 01/13/18 09:18 Dose: Not Given Potassium Chloride (K-Dur 20 Meq Er Tab) 40 meq PO DAILY [facility] Last Admin: 01/13/18 09:18 Dose: Not Given - Labs Labs: 01/13/18 08:34 01/13/18 08:34 PT 16.4 Seconds (9.8-13.1) H 01/04/18 22:11 INR 1.5 01/04/18 22:11 APTT 28.9 Seconds (25.6-37.1) 01/04/18 22:11 - Head Exam Head Exam: ATRAUMATIC - Eye Exam Eye Exam: Normal appearance - ENT Exam ENT Exam: Mucous Membranes Dry - Respiratory Exam Respiratory Exam: NORMAL BREATHING PATTERN - Cardiovascular Exam Cardiovascular Exam: +S1, +S2 - GI/Abdominal Exam GI & Abdominal Exam: Normal Bowel Sounds Assessment and Plan (1) Pancytopenia Assessment & Plan: f/u final bone marrow results prelim negative for malignancy Status: Acute
--- NOTE | 2018-01-13 10:54 | CP.PCM.PN ---
Subjective - Date & Time of Evaluation Date of Evaluation: 01/12/18 Time of Evaluation: 10:00 - Subjective Subjective: Has abdominal pain low copper noted Objective - Vital Signs/Intake and Output Vital Signs (last 24 hours): Temp Pulse Resp BP Pulse Ox 98.9 F 116 H 20 95/60 L 99 01/13/18 10:02 01/13/18 10:02 01/13/18 10:02 01/13/18 10:02 01/13/18 10:02 - Medications Medications: Current Medications Famotidine (Pepcid) 40 mg PO DAILY [facility] Last Admin: 01/13/18 09:17 Dose: Not Given Metronidazole (Flagyl 500mg/100ml Ns) 100 mls @ 100 mls/hr IVPB Q8 [facility]; Protocol Last Admin: 01/13/18 09:19 Dose: 100 mls/hr Cefepime HCl 2 gm/ Sodium (Chloride) 100 mls @ 100 mls/hr IVPB Q8 [facility]; Protocol Last Admin: 01/13/18 09:19 Dose: Not Given Sodium Chloride (Sodium Chloride 0.9%) 1,000 mls @ 500 mls/hr IV .Q2H [facility] Stop: 01/13/18 11:44 Last Admin: 01/13/18 10:34 Dose: 500 mls/hr Sodium Chloride (Sodium Chloride 0.9%) 1,000 mls @ 150 mls/hr IV .Q6H40M [facility] Stop: 01/14/18 07:42 Last Admin: 01/13/18 09:18 Dose: 150 mls/hr Chromium/Copper/Manganese/Zinc (3 ml/ Sodium Chloride) 1,003 mls @ 125 mls/hr IV DAILY [facility] Stop: 01/16/18 17:02 Mesalamine (Delzicol Dr) 800 mg PO TID [facility] Last Admin: 01/13/18 09:18 Dose: Not Given Potassium Chloride (K-Dur 20 Meq Er Tab) 40 meq PO DAILY [facility] Last Admin: 01/13/18 09:18 Dose: Not Given - Labs Labs: 01/13/18 08:34 01/13/18 08:34 PT 16.4 Seconds (9.8-13.1) H 01/04/18 22:11 INR 1.5 01/04/18 22:11 APTT 28.9 Seconds (25.6-37.1) 01/04/18 22:11 - Head Exam Head Exam: ATRAUMATIC - Eye Exam Eye Exam: Normal appearance - ENT Exam ENT Exam: Mucous Membranes Dry - Respiratory Exam Respiratory Exam: NORMAL BREATHING PATTERN - Cardiovascular Exam Cardiovascular Exam: +S1, +S2 - GI/Abdominal Exam GI & Abdominal Exam: Normal Bowel Sounds Assessment and Plan (1) Pancytopenia Assessment & Plan: copper deficiency noted; will start supplementation IV f/u final bone marrow; prelim negative for malignancy Status: Acute
--- NOTE | 2018-01-13 10:56 | CP.PCM.PN ---
Subjective - Date & Time of Evaluation Date of Evaluation: 01/13/18 Time of Evaluation: 10:45 - Subjective Subjective: Has abdominal pain. Objective - Vital Signs/Intake and Output Vital Signs (last 24 hours): Temp Pulse Resp BP Pulse Ox 98.9 F 116 H 20 95/60 L 99 01/13/18 10:02 01/13/18 10:02 01/13/18 10:02 01/13/18 10:02 01/13/18 10:02 - Medications Medications: Current Medications Famotidine (Pepcid) 40 mg PO DAILY [facility] Last Admin: 01/13/18 09:17 Dose: Not Given Metronidazole (Flagyl 500mg/100ml Ns) 100 mls @ 100 mls/hr IVPB Q8 [facility]; Protocol Last Admin: 01/13/18 09:19 Dose: 100 mls/hr Cefepime HCl 2 gm/ Sodium (Chloride) 100 mls @ 100 mls/hr IVPB Q8 [facility]; Protocol Last Admin: 01/13/18 09:19 Dose: Not Given Sodium Chloride (Sodium Chloride 0.9%) 1,000 mls @ 500 mls/hr IV .Q2H [facility] Stop: 01/13/18 11:44 Last Admin: 01/13/18 10:34 Dose: 500 mls/hr Sodium Chloride (Sodium Chloride 0.9%) 1,000 mls @ 150 mls/hr IV .Q6H40M [facility] Stop: 01/14/18 07:42 Last Admin: 01/13/18 09:18 Dose: 150 mls/hr Chromium/Copper/Manganese/Zinc (3 ml/ Sodium Chloride) 1,003 mls @ 125 mls/hr IV DAILY [facility] Stop: 01/16/18 17:02 Mesalamine (Delzicol Dr) 800 mg PO TID [facility] Last Admin: 01/13/18 09:18 Dose: Not Given Potassium Chloride (K-Dur 20 Meq Er Tab) 40 meq PO DAILY [facility] Last Admin: 01/13/18 09:18 Dose: Not Given - Labs Labs: 01/13/18 08:34 01/13/18 08:34 PT 16.4 Seconds (9.8-13.1) H 01/04/18 22:11 INR 1.5 01/04/18 22:11 APTT 28.9 Seconds (25.6-37.1) 01/04/18 22:11 - Head Exam Head Exam: ATRAUMATIC - Eye Exam Eye Exam: Normal appearance - ENT Exam ENT Exam: Mucous Membranes Dry - Respiratory Exam Respiratory Exam: NORMAL BREATHING PATTERN - Cardiovascular Exam Cardiovascular Exam: +S1, +S2 - GI/Abdominal Exam GI & Abdominal Exam: Normal Bowel Sounds Assessment and Plan (1) Pancytopenia Assessment & Plan: copper deficiency on supplementation prelim bone marrow negative for malignancy Status: Acute
--- NOTE | 2018-01-13 11:14 | CP.PCM.CON ---
History of Present Illness - History of Present Illness History of Present Illness: 57 year old male with a history of ulcerative colitis presented to [facility] with exacerbation of UC and was found to be pancytopenic with neutropenia. ID called for febrile neutropenia / sepsis in the setting of severe Cu deficiency Started on empiric IV Maxepime 2 g q8h GI and Heme on board Marrow Bx pending Past medical history: UC Past surgical history: neg Family history: Denies Social history: neg tobacco, alcohol, and illicit drug use Allergies: NKA Review of systems: All remaining review of systems including HEENT, cardiovascular, respiratory, gastrointestinal, genitourinary,musculoskeletal, dermatologic,neurologic, and psychiatric are negative unless mentioned in the HPI. Past Patient History - Past Medical History & Family History Past Medical History?: Yes - Past Social History Smoking Status: Never Smoked - CARDIAC Hx Cardiac Disorders: No - PULMONARY Hx Respiratory Disorders: No - NEUROLOGICAL Hx Neurological Disorder: No - HEENT Hx HEENT Problems: No - RENAL Hx Chronic Kidney Disease: No - ENDOCRINE/METABOLIC Hx Endocrine Disorders: No - HEMATOLOGICAL/ONCOLOGICAL Hx Blood Disorders: No - INTEGUMENTARY Hx Dermatological Problems: No - MUSCULOSKELETAL/RHEUMATOLOGICAL Hx Musculoskeletal Disorders: No Hx Falls: No - GASTROINTESTINAL Hx Gastrointestinal Disorders: Yes Hx Colitis: Yes - GENITOURINARY/GYNECOLOGICAL Hx Genitourinary Disorders: No - PSYCHIATRIC Hx Psychophysiologic Disorder: No Hx Substance Use: No - SURGICAL HISTORY Hx Surgeries: No - ANESTHESIA Hx Anesthesia: No Hx Anesthesia Reactions: No Hx Malignant Hyperthermia: No Has any member of the family had a problem w/ anesthesia?: No Meds Allergies/Adverse Reactions: Allergies Allergy/AdvReac Type Severity Reaction Status Date / Time No Known Allergies Allergy Verified 01/04/18 21:19 - Medications Medications: Current Medications Famotidine (Pepcid) 40 mg PO DAILY [facility] Last Admin: 01/13/18 09:17 Dose: Not Given Metronidazole (Flagyl 500mg/100ml Ns) 100 mls @ 100 mls/hr IVPB Q8 [facility]; Protocol Last Admin: 01/13/18 09:19 Dose: 100 mls/hr Cefepime HCl 2 gm/ Sodium (Chloride) 100 mls @ 100 mls/hr IVPB Q8 [facility]; Protocol Last Admin: 01/13/18 09:19 Dose: Not Given Sodium Chloride (Sodium Chloride 0.9%) 1,000 mls @ 500 mls/hr IV .Q2H [facility] Stop: 01/13/18 11:44 Last Admin: 01/13/18 10:34 Dose: 500 mls/hr Sodium Chloride (Sodium Chloride 0.9%) 1,000 mls @ 150 mls/hr IV .Q6H40M [facility] Stop: 01/14/18 07:42 Last Admin: 01/13/18 09:18 Dose: 150 mls/hr Chromium/Copper/Manganese/Zinc (3 ml/ Sodium Chloride) 1,003 mls @ 125 mls/hr IV DAILY [facility] Stop: 01/16/18 17:02 Mesalamine (Delzicol Dr) 800 mg PO TID [facility] Last Admin: 01/13/18 09:18 Dose: Not Given Potassium Chloride (K-Dur 20 Meq Er Tab) 40 meq PO DAILY [facility] Last Admin: 01/13/18 09:18 Dose: Not Given Physical Exam - Constitutional Appears: No Acute Distress, Chronically Ill - Head Exam Head Exam: ATRAUMATIC, NORMOCEPHALIC - Eye Exam Eye Exam: PERRL. absent: Scleral icterus - ENT Exam ENT Exam: Mucous Membranes Dry, Normal External Ear Exam, Normal Oropharynx - Neck Exam Neck exam: Negative for: Lymphadenopathy - Respiratory Exam Respiratory Exam: Decreased Breath Sounds, Clear to Auscultation Bilateral - Cardiovascular Exam Cardiovascular Exam: REGULAR RHYTHM, +S1, +S2 - GI/Abdominal Exam GI & Abdominal Exam: Diminished Bowel Sounds, Soft. absent: Tenderness - Rectal Exam Rectal Exam: Deferred - Exam Exam: NORMAL INSPECTION - Extremities Exam Extremities exam: Positive for: pedal pulses present. Negative for: calf tenderness, pedal edema, tenderness - Back Exam Back exam: absent: CVA tenderness (L), CVA tenderness (R), paraspinal tenderness - Neurological Exam Neurological exam: Alert, CN II-XII Intact, Oriented x3, Reflexes Normal - Psychiatric Exam Psychiatric exam: Normal Mood - Skin Skin Exam: Dry, Intact Results - Vital Signs Recent Vital Signs: Last Vital Signs Temp 98.9 F 01/13/18 10:02 Pulse 116 H 01/13/18 10:02 Resp 20 01/13/18 10:02 BP 95/60 L 01/13/18 10:02 Pulse Ox 99 01/13/18 10:02 - Labs Result Diagrams: 01/13/18 08:34 01/13/18 08:34 Labs: Laboratory Results - last 24 hr 01/13/18 01/13/18 01/13/18 07:26 08:34 08:34 WBC 0.3 L* D RBC 2.67 L Hgb 8.2 L D Hct 23.7 L MCV 88.9 MCH 30.6 MCHC 34.4 RDW 15.2 H Plt Count 14 L* D MPV 9.8 Neut % (Auto) 41.1 L Lymph % (Auto) 55.3 H [place] % (Auto) 2.9 Eos % (Auto) 0.2 Baso % (Auto) 0.5 Neut # (Auto) 0.1 L Lymph # (Auto) 0.2 L [place] # (Auto) 0.0 Eos # (Auto) 0.0 Baso # (Auto) 0.0 Sodium 130 L Potassium 3.5 L Chloride 106 Carbon Dioxide 17 L Anion Gap 11 BUN 9 Creatinine 0.3 L Est GFR ( Amer) > 60 Est GFR (Non-Af Amer) > 60 POC Glucose (mg/dL) 109 Random Glucose 97 Lactic Acid Calcium 6.4 L Total Bilirubin 1.2 AST 19 ALT 22 Alkaline Phosphatase 78 Total Protein 4.7 L Albumin 1.9 L Globulin 2.8 Albumin/Globulin Ratio 0.7 L 01/13/18 08:36 WBC RBC Hgb Hct MCV MCH MCHC RDW Plt Count MPV Neut % (Auto) Lymph % (Auto) [place] % (Auto) Eos % (Auto) Baso % (Auto) Neut # (Auto) Lymph # (Auto) [place] # (Auto) Eos # (Auto) Baso # (Auto) Sodium Potassium Chloride Carbon Dioxide Anion Gap BUN Creatinine Est GFR ( Amer) Est GFR (Non-Af Amer) POC Glucose (mg/dL) Random Glucose Lactic Acid 2.0 Calcium Total Bilirubin AST ALT Alkaline Phosphatase Total Protein Albumin Globulin Albumin/Globulin Ratio Assessment & Plan (1) Abdominal pain Status: Acute (2) Colitis Status: Acute (3) Pancytopenia Status: Acute (4) Sepsis Status: Acute - Assessment and Plan (Free Text) Assessment: severe pancytopenia- Cu deficiency Bone marrow Bx pending doubt infectious etiology for pancytopenia in abscence of HIV but will screen for CMV, Toxo agree with empiric IV antibiotics prognosis guarded
[2018-01-13] MEDS: MANGANESE IV SCH (12:21)
[2018-01-13] MEDS: SODIUM CHLORIDE IV SCH (12:21)
[2018-01-13] MEDS: ZINC IV SCH (12:21)
[2018-01-13] MEDS: CHROMIUM IV SCH (12:21)
[2018-01-13] MEDS: COPPER IV SCH (12:21)
[2018-01-13] MEDS ORDERED: Potassium Chloride 20 mEq 100 ML IVPB ONE (14:30)
--- NOTE | 2018-01-13 15:15 | CP.PCM.PN ---
Subjective - Date & Time of Evaluation Date of Evaluation: 01/13/18 Time of Evaluation: 15:12 - Subjective Subjective: Patient without diarrhea though further drops in WBC and platelets. Objective - Vital Signs/Intake and Output Vital Signs (last 24 hours): Temp Pulse Resp BP Pulse Ox 97.8 F 100 H 18 113/75 100 01/13/18 14:36 01/13/18 14:36 01/13/18 14:36 01/13/18 14:36 01/13/18 12:10 Intake and Output: 01/13/18 01/13/18 06:59 18:59 Intake Total 0 Balance 0 - Medications Medications: Current Medications Famotidine (Pepcid) 40 mg PO DAILY [facility] Last Admin: 01/13/18 09:17 Dose: Not Given Metronidazole (Flagyl 500mg/100ml Ns) 100 mls @ 100 mls/hr IVPB Q8 [facility]; Protocol Last Admin: 01/13/18 09:19 Dose: 100 mls/hr Cefepime HCl 2 gm/ Sodium (Chloride) 100 mls @ 100 mls/hr IVPB Q8 [facility]; Protocol Last Admin: 01/13/18 09:19 Dose: Not Given Chromium/Copper/Manganese/Zinc (3 ml/ Sodium Chloride) 1,003 mls @ 125 mls/hr IV DAILY [facility] Stop: 01/16/18 17:02 Last Admin: 01/13/18 12:21 Dose: 125 mls/hr Potassium Chloride (Potassium Chloride 20 Meq/100 Ml) 100 mls @ 50 mls/hr IVPB ONCE ONE Stop: 01/13/18 16:29 Potassium Chloride (K-Dur 20 Meq Er Tab) 40 meq PO DAILY [facility] Last Admin: 01/13/18 09:18 Dose: Not Given - Labs Labs: 01/13/18 08:34 01/13/18 08:34 PT 16.4 Seconds (9.8-13.1) H 01/04/18 22:11 INR 1.5 01/04/18 22:11 APTT 28.9 Seconds (25.6-37.1) 01/04/18 22:11 - Head Exam Head Exam: ATRAUMATIC - Eye Exam Eye Exam: Normal appearance - Neck Exam Neck Exam: Full ROM - Respiratory Exam Respiratory Exam: Clear to Ausculation Bilateral - Cardiovascular Exam Cardiovascular Exam: REGULAR RHYTHM - GI/Abdominal Exam GI & Abdominal Exam: Soft, Normal Bowel Sounds. absent: Tenderness Assessment and Plan (1) Colitis Assessment & Plan: Due to ongoing leukopenia 5 ASA products are stopped. Patient to be transfused today be Hematology. ID is also following the patient. Status: Acute
--- NOTE | 2018-01-13 17:54 | CP.PCM.PN ---
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 IV fluids and IV empiric abx started. Pt denies pain or discomfort. No new episodes of diarrhea or bloody BM's. Pt seems depressed. Objective - Vital Signs/Intake and Output Vital Signs (last 24 hours): Temp Pulse Resp BP Pulse Ox 97.6 F 105 H 18 113/75 100 01/13/18 15:56 01/13/18 15:56 01/13/18 15:56 01/13/18 15:56 01/13/18 15:56 Intake and Output: 01/13/18 01/13/18 06:59 18:59 Intake Total 256 Balance 256 - Medications Medications: Current Medications Famotidine (Pepcid) 40 mg PO DAILY [facility] Last Admin: 01/13/18 09:17 Dose: Not Given Metronidazole (Flagyl 500mg/100ml Ns) 100 mls @ 100 mls/hr IVPB Q8 [facility]; Protocol Last Admin: 01/13/18 09:19 Dose: 100 mls/hr Cefepime HCl 2 gm/ Sodium (Chloride) 100 mls @ 100 mls/hr IVPB Q8 [facility]; Protocol Last Admin: 01/13/18 17:27 Dose: 100 mls/hr Chromium/Copper/Manganese/Zinc (3 ml/ Sodium Chloride) 1,003 mls @ 125 mls/hr IV DAILY [facility] Stop: 01/16/18 17:02 Last Admin: 01/13/18 12:21 Dose: 125 mls/hr Potassium Chloride (K-Dur 20 Meq Er Tab) 40 meq PO DAILY [facility] Last Admin: 01/13/18 09:18 Dose: Not Given - Labs Labs: 01/13/18 08:34 01/13/18 08:34 PT 16.4 Seconds (9.8-13.1) H 01/04/18 22:11 INR 1.5 01/04/18 22:11 APTT 28.9 Seconds (25.6-37.1) 01/04/18 22:11 - Constitutional Appears: No Acute Distress - Head Exam Head Exam: NORMAL INSPECTION - Eye Exam Eye Exam: Normal appearance - ENT Exam ENT Exam: Mucous Membranes Moist - Neck Exam Neck Exam: Full ROM - Respiratory Exam Respiratory Exam: Clear to Ausculation Bilateral - Cardiovascular Exam Cardiovascular Exam: REGULAR RHYTHM - GI/Abdominal Exam GI & Abdominal Exam: Soft (Non tender), Normal Bowel Sounds - Extremities Exam Extremities Exam: Normal Capillary Refill - Neurological Exam Neurological Exam: Alert - Psychiatric Exam Psychiatric exam: Depressed, Flat Affect - Skin Skin Exam: Dry, Normal Color Assessment and Plan (1) Colitis Status: Acute (2) Abdominal pain Status: Acute (3) Hematochezia Status: Acute (4) Pancytopenia Status: Acute - Assessment and Plan (Free Text) Assessment: 57 y/o male with pmhx of UC presents with abdominal pain and bloody BM's, found to have colitis and pancytopenia s/p BM biopsy. -Hypovolemia, likely 2/2 to GI losses in setting of diarrhea, responsive to fluids -Worsening pancytopenia, 2/2 copper def, on IV Copper therapy, Granix and platelets as per Heme/Onc -Bone Marrow Biopsy pending final report -ID Consulted, Empiric ABX, blood work sent -Psych consulted for likely Depression Discussed case with Dr. Aubree Muñoz, PGY2
--- NOTE | 2018-01-13 19:38 | CP.PCM.CON ---
History of Present Illness - History of Present Illness History of Present Illness: consult requested for depression Pt is a 57 y/o male w/ pmhx of Ulcerative Colitis who preented to ED with complaints of worsening abdominal pain and bloody diarrhea. pt has been noted by staff to be depressed, on evaluation, pt reported he has been feeling down related that to his medical condition, pt also stated that he has been unable to work for past three years, has been depemdent on his which makes him depressed, reported decreased sleep, low energy low motivation, poor appetite, pt denied any current suicidal ideation, denied any previous psychiatric treatment or hospitalization, no previouis suicidal attempt, denied perceptual disturbances, denied substance use Past Patient History - Past Medical History & Family History Past Medical History?: Yes - Past Social History Smoking Status: Never Smoked - CARDIAC Hx Cardiac Disorders: No - PULMONARY Hx Respiratory Disorders: No - NEUROLOGICAL Hx Neurological Disorder: No - HEENT Hx HEENT Problems: No - RENAL Hx Chronic Kidney Disease: No - ENDOCRINE/METABOLIC Hx Endocrine Disorders: No - HEMATOLOGICAL/ONCOLOGICAL Hx Blood Disorders: No - INTEGUMENTARY Hx Dermatological Problems: No - MUSCULOSKELETAL/RHEUMATOLOGICAL Hx Musculoskeletal Disorders: No Hx Falls: No - GASTROINTESTINAL Hx Gastrointestinal Disorders: Yes Hx Colitis: Yes - GENITOURINARY/GYNECOLOGICAL Hx Genitourinary Disorders: No - PSYCHIATRIC Hx Psychophysiologic Disorder: No Hx Substance Use: No - SURGICAL HISTORY Hx Surgeries: No - ANESTHESIA Hx Anesthesia: No Hx Anesthesia Reactions: No Hx Malignant Hyperthermia: No Has any member of the family had a problem w/ anesthesia?: No Meds Allergies/Adverse Reactions: Allergies Allergy/AdvReac Type Severity Reaction Status Date / Time No Known Allergies Allergy Verified 01/04/18 21:19 - Medications Medications: Current Medications Famotidine (Pepcid) 40 mg PO DAILY [facility] Last Admin: 01/13/18 09:17 Dose: Not Given Metronidazole (Flagyl 500mg/100ml Ns) 100 mls @ 100 mls/hr IVPB Q8 [facility]; Protocol Last Admin: 01/13/18 18:08 Dose: 100 mls/hr Cefepime HCl 2 gm/ Sodium (Chloride) 100 mls @ 100 mls/hr IVPB Q8 [facility]; Protocol Last Admin: 01/13/18 17:27 Dose: 100 mls/hr Chromium/Copper/Manganese/Zinc (3 ml/ Sodium Chloride) 1,003 mls @ 125 mls/hr IV DAILY [facility] Stop: 01/16/18 17:02 Last Admin: 01/13/18 12:21 Dose: 125 mls/hr Potassium Chloride (K-Dur 20 Meq Er Tab) 40 meq PO DAILY [facility] Last Admin: 01/13/18 09:18 Dose: Not Given Results - Vital Signs Recent Vital Signs: Last Vital Signs Temp 97.8 F 01/13/18 18:06 Pulse 111 H 01/13/18 18:06 Resp 22 01/13/18 18:06 BP 130/89 01/13/18 18:06 Pulse Ox 100 01/13/18 15:56 - Labs Result Diagrams: 01/13/18 08:34 01/13/18 08:34 Labs: Laboratory Results - last 24 hr 01/13/18 01/13/18 01/13/18 07:26 08:34 08:34 WBC 0.3 L* D RBC 2.67 L Hgb 8.2 L D Hct 23.7 L MCV 88.9 MCH 30.6 MCHC 34.4 RDW 15.2 H Plt Count 14 L* D MPV 9.8 Neut % (Auto) 41.1 L Lymph % (Auto) 55.3 H Hudson % (Auto) 2.9 Eos % (Auto) 0.2 Baso % (Auto) 0.5 Neut # (Auto) 0.1 L Lymph # (Auto) 0.2 L Hudson # (Auto) 0.0 Eos # (Auto) 0.0 Baso # (Auto) 0.0 Sodium 130 L Potassium 3.5 L Chloride 106 Carbon Dioxide 17 L Anion Gap 11 BUN 9 Creatinine 0.3 L Est GFR ( Amer) > 60 Est GFR (Non-Af Amer) > 60 POC Glucose (mg/dL) 109 Random Glucose 97 Lactic Acid Calcium 6.4 L Total Bilirubin 1.2 AST 19 ALT 22 Alkaline Phosphatase 78 Total Protein 4.7 L Albumin 1.9 L Globulin 2.8 Albumin/Globulin Ratio 0.7 L Procalcitonin HIV 1&2 Antibody Screen Blood Type Antibody Screen BBK History Checked 01/13/18 01/13/18 01/13/18 08:34 08:36 11:50 WBC RBC Hgb Hct MCV MCH MCHC RDW Plt Count MPV Neut % (Auto) Lymph % (Auto) Hudson % (Auto) Eos % (Auto) Baso % (Auto) Neut # (Auto) Lymph # (Auto) Hudson # (Auto) Eos # (Auto) Baso # (Auto) Sodium Potassium Chloride Carbon Dioxide Anion Gap BUN Creatinine Est GFR ( Amer) Est GFR (Non-Af Amer) POC Glucose (mg/dL) Random Glucose Lactic Acid 2.0 Calcium Total Bilirubin AST ALT Alkaline Phosphatase Total Protein Albumin Globulin Albumin/Globulin Ratio Procalcitonin 0.95 H HIV 1&2 Antibody Screen Negative Blood Type Antibody Screen BBK History Checked 01/13/18 11:50 WBC RBC Hgb Hct MCV MCH MCHC RDW Plt Count MPV Neut % (Auto) Lymph % (Auto) Hudson % (Auto) Eos % (Auto) Baso % (Auto) Neut # (Auto) Lymph # (Auto) Hudson # (Auto) Eos # (Auto) Baso # (Auto) Sodium Potassium Chloride Carbon Dioxide Anion Gap BUN Creatinine Est GFR ( Amer) Est GFR (Non-Af Amer) POC Glucose (mg/dL) Random Glucose Lactic Acid Calcium Total Bilirubin AST ALT Alkaline Phosphatase Total Protein Albumin Globulin Albumin/Globulin Ratio Procalcitonin HIV 1&2 Antibody Screen Blood Type B POSITIVE Antibody Screen Negative BBK History Checked Patient has bt Assessment & Plan - Assessment and Plan (Free Text) Assessment: mood disorder due to medical condition with depressive features Plan: pt would benefit from starting cymbalta 20mg daily referral to outpatient psychiatric services on discharge
[2018-01-14] MEDS: metroNIDAZOLE 500mg/100ml NS 100 ML IVPB SCH ×3 (02:37→17:34)
[2018-01-14] MEDS: Cefepime 2 GM in Sodium Chloride 0.9% 100 ML IVPB SCH ×3 (03:34→17:00)
[2018-01-14] MEDS: Potassium Chloride 20 mEq ER Tab PO SCH ×2 (09:44→16:47)
[2018-01-14] MEDS: MANGANESE IV SCH (09:48)
[2018-01-14] MEDS: SODIUM CHLORIDE IV SCH (09:48)
[2018-01-14] MEDS: ZINC IV SCH (09:48)
[2018-01-14] MEDS: CHROMIUM IV SCH (09:48)
[2018-01-14] MEDS: COPPER IV SCH (09:48)
[2018-01-14 09:52] LABS: HEMOGLOBIN 7.3 g/dL (12.0-18.0); MEAN CELL VOLUME 88.7 fl (80.0-94.0); MEAN CORPUSCULAR HEMOGLOBIN 30.9 pg (27.0-31.0); MEAN CORPUSCULAR HGB CONC 34.8 g/dL (33.0-37.0); RBC 2.37 Mil/uL (4.40-5.90)
[2018-01-14 10:26] LABS: ALB/GLOB RATIO 0.7 (1.0-2.1); ALBUMIN 1.9 g/dL (3.5-5.0); ALT/SGPT 22 U/L (21-72); AST/SGOT 16 U/L (17-59); BLOOD UREA NITROGEN 9 mg/dl (9-20); CALCIUM 6.6 mg/dL (8.4-10.2); GFR NON-AFRICAN AMERICAN > 60
[2018-01-14] MEDS ORDERED: KCL 40MEQ/NS 1L 1,000 ML IV SCH (10:45)
[2018-01-14] MEDS: Proshield Plus GEL TOP PRN (13:42)
[2018-01-14] MEDS ORDERED: Potassium Chloride 20 mEq 100 ML IVPB SCH (14:00)
--- NOTE | 2018-01-14 14:07 | CP.PCM.PN ---
Subjective - Date & Time of Evaluation Date of Evaluation: 01/14/18 Time of Evaluation: 07:00 - Subjective Subjective: Overnight events noted- pt slipped while being transferred from [facility]. No head or bodily trauma as per RN. Pt denies pain or new episodes of diarrhea or bloody stools. Objective - Vital Signs/Intake and Output Vital Signs (last 24 hours): Temp Pulse Resp BP Pulse Ox 98.2 F 106 H 20 119/77 98 01/14/18 08:47 01/14/18 08:47 01/14/18 08:47 01/14/18 08:47 01/14/18 08:47 - Medications Medications: Current Medications Dimethicone (Proshield Plus Skin Protectant) 1 applic TOP Q8 PRN PRN Reason: Excoriation Last Admin: 01/14/18 13:42 Dose: 1 applic Duloxetine HCl (Cymbalta) 20 mg PO DAILY [facility] Last Admin: 01/14/18 13:41 Dose: 20 mg Famotidine (Pepcid) 40 mg PO DAILY [facility] Last Admin: 01/14/18 09:44 Dose: 40 mg Metronidazole (Flagyl 500mg/100ml Ns) 100 mls @ 100 mls/hr IVPB Q8 [facility]; Protoco l Last Admin: 01/14/18 09:43 Dose: 100 mls/hr Cefepime HCl 2 gm/ Sodium (Chloride) 100 mls @ 100 mls/hr IVPB Q8 [facility]; Protocol Last Admin: 01/14/18 09:45 Dose: 100 mls/hr Chromium/Copper/Manganese/Zinc (3 ml/ Sodium Chloride) 1,003 mls @ 125 mls/hr IV DAILY [facility] Stop: 01/16/18 17:02 Last Admin: 01/14/18 09:48 Dose: 125 mls/hr Potassium Chloride (K-Dur 20 Meq Er Tab) 40 meq PO BID [facility] - Labs Labs: 01/14/18 09:30 01/14/18 09:30 PT 16.4 Seconds (9.8-13.1) H 01/04/18 22:11 INR 1.5 01/04/18 22:11 APTT 28.9 Seconds (25.6-37.1) 01/04/18 22:11 - Constitutional Appears: Older Than Stated Age, Chronically Ill - Head Exam Head Exam: NORMAL INSPECTION - Eye Exam Eye Exam: Normal appearance - ENT Exam ENT Exam: Mucous Membranes Moist - Neck Exam Neck Exam: Full ROM - Respiratory Exam Respiratory Exam: Clear to Ausculation Bilateral. absent: Rales, Wheezes - Cardiovascular Exam Cardiovascular Exam: REGULAR RHYTHM, +S1, +S2. absent: Murmur - GI/Abdominal Exam GI & Abdominal Exam: Soft, Normal Bowel Sounds. absent: Tenderness - Extremities Exam Extremities Exam: absent: Pedal Edema - Neurological Exam Neurological Exam: Alert - Psychiatric Exam Psychiatric exam: Depressed, Flat Affect - Skin Skin Exam: Pallor Assessment and Plan (1) Colitis Status: Acute (2) Abdominal pain Status: Acute (3) Hematochezia Status: Acute (4) Pancytopenia Status: Acute - Assessment and Plan (Free Text) Assessment: 57 y/o male with pmhx of UC presents with abdominal pain and bloody BM's, found to have colitis and pancytopenia s/p BM biopsy (report pending). Receiving e mpiric antibiotics for neutropenic fever and IV Copper for Copper deficiency. -Mild improvement in pancytopenia after receiving Granix and platelets. (WBC 1.0, Platelets 22). -Transfuse PRBC today; Epogen considered but will transfuse for now as per Heme/Onc -Bone Marrow Biopsy pending final report -ID Consulted, Empiric ABX, blood work sent -Psych consulted for likely Depression- Cymbalta started Discussed case with Dr. Aubree Muñoz, PGY2
[2018-01-15] MEDS: metroNIDAZOLE 500mg/100ml NS 100 ML IVPB SCH ×3 (00:18→18:20)
[2018-01-15] MEDS: Cefepime 2 GM in Sodium Chloride 0.9% 100 ML IVPB SCH ×3 (00:27→18:17)
[2018-01-15] MEDS: MANGANESE IV SCH (08:28)
[2018-01-15] MEDS: COPPER IV SCH (08:28)
[2018-01-15] MEDS: CHROMIUM IV SCH (08:28)
[2018-01-15] MEDS: SODIUM CHLORIDE IV SCH (08:28)
[2018-01-15] MEDS: ZINC IV SCH (08:28)
[2018-01-15 08:29] LABS: HEMOGLOBIN 8.2 g/dL (12.0-18.0); LYMPH # 0.2 K/uL (1.0-4.3); LYMPH % 76.9 % (20.0-40.0); MEAN CELL VOLUME 89.9 fl (80.0-94.0); MEAN CORPUSCULAR HEMOGLOBIN 29.9 pg (27.0-31.0); MEAN CORPUSCULAR HGB CONC 33.2 g/dL (33.0-37.0); MEAN PLATELET VOLUME 10.3 fl (7.2-11.7); MONO # 0.1 K/uL (0.0-0.8); MONO % 21.4 % (0.0-10.0); NEUT % 0.7 % (50.0-75.0); RBC 2.73 Mil/uL (4.40-5.90); RED CELL DISTRIBUTION WIDTH 15.5 % (11.5-14.5)
[2018-01-15] MEDS: Potassium Chloride 20 mEq ER Tab PO SCH ×2 (08:30→18:17)
[2018-01-15 08:45] LABS: WHITE BLOOD COUNT 0.3 K/uL (4.8-10.8)
[2018-01-15 09:03] LABS: ALB/GLOB RATIO 0.8 (1.0-2.1); ALT/SGPT 25 U/L (21-72); AST/SGOT 18 U/L (17-59); BLOOD UREA NITROGEN 7 mg/dl (9-20); CALCIUM 6.9 mg/dL (8.4-10.2); GFR NON-AFRICAN AMERICAN > 60
--- NOTE | 2018-01-15 13:14 | CP.PCM.PN ---
Subjective - Date & Time of Evaluation Date of Evaluation: 01/15/18 Time of Evaluation: 08:00 - Subjective Subjective: Pt seen and examined this morning. Denies pain or diarrhea. Labs reviewed- worsening pancytopenia. Discussed case with Dr. Chavira, pt may be chronically immunosuppressed from frequent use of steroids for acute UC Flares. There is also the possibility of an acute viral bone marrow suppression. As per Dr. Chavira, will administer Granix for 2 days and continue to monitor labs. Objective - Vital Signs/Intake and Output Vital Signs (last 24 hours): Temp Pulse Resp BP Pulse Ox 97.8 F 98 H 18 125/83 100 01/15/18 08:57 01/15/18 09:00 01/15/18 08:57 01/15/18 08:57 01/15/18 08:57 Intake and Output: 01/15/18 01/15/18 06:59 18:59 Intake Total 1300 Balance 1300 - Medications Medications: Current Medications Dimethicone (Proshield Plus Skin Protectant) 1 applic TOP Q8 PRN PRN Reason: Excoriation Last Admin: 01/14/18 13:42 Dose: 1 applic Duloxetine HCl (Cymbalta) 20 mg PO DAILY [facility] Last Admin: 01/15/18 08:30 Dose: 20 mg Famotidine (Pepcid) 40 mg PO DAILY [facility] Last Admin: 01/15/18 08:30 Dose: 40 mg Metronidazole (Flagyl 500mg/100ml Ns) 100 mls @ 100 mls/hr IVPB Q8 [facility]; Protocol Last Admin: 01/15/18 08:29 Dose: 100 mls/hr Cefepime HCl 2 gm/ Sodium (Chloride) 100 mls @ 100 mls/hr IVPB Q8 [facility]; Protocol Last Admin: 01/15/18 08:28 Dose: 100 mls/hr Chromium/Copper/Manganese/Zinc (3 ml/ Sodium Chloride) 1,003 mls @ 125 mls/hr IV DAILY [facility] Stop: 01/16/18 17:02 Last Admin: 01/15/18 08:28 Dose: 125 mls/hr Potassium Chloride (K-Dur 20 Meq Er Tab) 40 meq PO BID [facility] Last Admin: 01/15/18 08:30 Dose: 40 meq - Labs Labs: 01/15/18 08:10 01/15/18 08:10 PT 16.4 Seconds (9.8-13.1) H 01/04/18 22:11 INR 1.5 01/04/18 22:11 APTT 28.9 Seconds (25.6-37.1) 01/04/18 22:11 - Constitutional Appears: No Acute Distress - Head Exam Head Exam: NORMAL INSPECTION - Eye Exam Eye Exam: Normal appearance - ENT Exam ENT Exam: Mucous Membranes Moist - Neck Exam Neck Exam: Full ROM - Respiratory Exam Respiratory Exam: Clear to Ausculation Bilateral. absent: Rales, Wheezes - Cardiovascular Exam Cardiovascular Exam: REGULAR RHYTHM - GI/Abdominal Exam GI & Abdominal Exam: Soft, Normal Bowel Sounds. absent: Distended, Tenderness - Extremities Exam Extremities Exam: absent: Pedal Edema - Neurological Exam Neurological Exam: Alert, Oriented x3 - Psychiatric Exam Psychiatric exam: Depressed, Flat Affect - Skin Skin Exam: Dry Assessment and Plan (1) Colitis Status: Acute (2) Abdominal pain Status: Acute (3) Hematochezia Status: Acute (4) Pancytopenia Status: Acute - Assessment and Plan (Free Text) Assessment: 57 y/o male with pmhx of UC presents with abdominal pain and bloody BM's, found to have colitis and pancytopenia s/p BM biopsy (report pending). Receiving empiric antibiotics for neutropenic fever and IV Copper for Copper deficiency. Pt line not stable, may need central line. -Worsening Pancytopenia s/p Granix and platelet infusion. -Granix today and tomorrow as ordered -Bone Marrow Biopsy pending final report -ID Consulted, Empiric ABX, blood work sent, Parvovirus and EBV sent -Cymbalta for Depression -PT for in bed therapy as pt appears to be deconditioning Discussed case with Dr. Aubree Muñoz, PGY2
--- NOTE | 2018-01-15 13:48 | CP.PCM.PN ---
Subjective - Date & Time of Evaluation Date of Evaluation: 01/15/18 Time of Evaluation: 07:00 - Subjective Subjective: afebrile alert c/o diarrhea less pain weak and very depressed Objective - Vital Signs/Intake and Output Vital Signs (last 24 hours): Temp Pulse Resp BP Pulse Ox 97.8 F 98 H 18 125/83 100 01/15/18 08:57 01/15/18 09:00 01/15/18 08:57 01/15/18 08:57 01/15/18 08:57 Intake and Output: 01/15/18 01/15/18 06:59 18:59 Intake Total 1300 Balance 1300 - Medications Medications: Current Medications Dimethicone (Proshield Plus Skin Protectant) 1 applic TOP Q8 PRN PRN Reason: Excoriation Last Admin: 01/14/18 13:42 Dose: 1 applic Duloxetine HCl (Cymbalta) 20 mg PO DAILY [facility] Last Admin: 01/15/18 08:30 Dose: 20 mg Famotidine (Pepcid) 40 mg PO DAILY [facility] Last Admin: 01/15/18 08:30 Dose: 40 mg Metronidazole (Flagyl 500mg/100ml Ns) 100 mls @ 100 mls/hr IVPB Q8 [facility]; Protocol Last Admin: 01/15/18 08:29 Dose: 100 mls/hr Cefepime HCl 2 gm/ Sodium (Chloride) 100 mls @ 100 mls/hr IVPB Q8 [facility]; Protocol Last Admin: 01/15/18 08:28 Dose: 100 mls/hr Chromium/Copper/Manganese/Zinc (3 ml/ Sodium Chloride) 1,003 mls @ 125 mls/hr IV DAILY [facility] Stop: 01/16/18 17:02 Last Admin: 01/15/18 08:28 Dose: 125 mls/hr Potassium Chloride (K-Dur 20 Meq Er Tab) 40 meq PO BID [facility] Last Admin: 01/15/18 08:30 Dose: 40 meq - Labs Labs: 01/15/18 08:10 01/15/18 08:10 PT 16.4 Seconds (9.8-13.1) H 01/04/18 22:11 INR 1.5 01/04/18 22:11 APTT 28.9 Seconds (25.6-37.1) 01/04/18 22:11 - Constitutional Appears: Non-toxic, No Acute Distress, Chronically Ill - Head Exam Head Exam: NORMOCEPHALIC - Eye Exam Eye Exam: absent: Scleral icterus - ENT Exam ENT Exam: Mucous Membranes Dry, Normal External Ear Exam - Neck Exam Neck Exam: absent: Lymphadenopathy - Respiratory Exam Respiratory Exam: Decreased Breath Sounds, Clear to Ausculation Bilateral - Cardiovascular Exam Cardiovascular Exam: REGULAR RHYTHM, +S1, +S2 - GI/Abdominal Exam GI & Abdominal Exam: Distended, Soft. absent: Tenderness - Rectal Exam Rectal Exam: Deferred - Exam Exam: NORMAL INSPECTION - Extremities Exam Extremities Exam: absent: Pedal Edema - Back Exam Back Exam: absent: CVA tenderness (L), CVA tenderness (R) - Neurological Exam Neurological Exam: Alert, Awake, CN II-XII Intact, Oriented x3 - Psychiatric Exam Psychiatric exam: Normal Mood - Skin Skin Exam: Dry Assessment and Plan (1) Abdominal pain Status: Acute (2) Colitis Status: Acute (3) Pancytopenia Status: Acute (4) Sepsis Status: Acute - Assessment and Plan (Free Text) Assessment: cont empiric iv rx for 7 days all cultures so far negative poor overall prognosis
[2018-01-15] MEDS ORDERED: Lidocaine 2% Inj (20ml) ONE (16:10)
--- NOTE | 2018-01-15 16:42 | CP.PCM.PCO ---
Assessment/Plan - Assessment/Plan Assessment (Free Text): If patient loses IV access, please contact Surgery or Anesthesiology for a central or femoral line given extremely low platelets. - Problems Patient Problems: Problem List (Active/Current) Problem Status Onset Code Abdominal pain Acute R10.9 Colitis Acute K52.9 Dehydration Acute E86.0 Hematochezia Acute K92.1 Pancytopenia Acute D61.818 Sepsis Acute A41.9
--- NOTE | 2018-01-15 16:55 | CP.PCM.PN ---
Subjective - Date & Time of Evaluation Date of Evaluation: 01/15/18 Time of Evaluation: 04:00 - Subjective Subjective: Called by medical team regarding need for a better line, preferably central venous access. Labs reviewed showing a mild coagulopathy from last set of Coags over 1 week ago, and recent platelet count of 12K today. Via measurement operator, discussed need for a better intravenous line. Under emergent conditions, sterile prep done over R groin as safest place for TLC placement given coagulopathy and low plts. Unsuccessful attempts were made to cannulate R femoral vein, complicated by uncooperative patient in maintaining motionless position during the procedure. Further attempts aborted as he remained uncooperative. Manual pressure applied to R groin area for 10 minutes to prevent further hematoma formation. Post attempts, approx. 3-4cm elliptical size hematoma noted over the involved area. No observable active bleeding noted and sterile dressing applied to area.
[2018-01-15 18:39] LABS: % CD4 (T HELPER CELL) 55 Percent (30-61); % CD8 (SUPPRESSOR T CELL) 23 Percent (12-42); ABSOLUTE CD4 CELLS 132 Cells/mcL (490-1740); ABSOLUTE CD8 CELLS 55 Cells/mcL (180-1170); ABSOLUTE LYMPHOCYTES 240 Cells/mcL (850-3900); HELPER/SUPPRESSOR RATIO 2.38 Ratio (0.86-5.00)
--- NOTE | 2018-01-16 00:05 | CP.PCM.PN ---
Subjective - Date & Time of Evaluation Date of Evaluation: 01/15/18 Time of Evaluation: 19:00 - Subjective Subjective: Appears fatigued. Objective - Vital Signs/Intake and Output Vital Signs (last 24 hours): Temp Pulse Resp BP Pulse Ox 98.0 F 99 H 18 92/66 L 95 01/15/18 21:00 01/15/18 21:00 01/15/18 21:00 01/15/18 21:00 01/15/18 21:00 - Medications Medications: Current Medications Dimethicone (Proshield Plus Skin Protectant) 1 applic TOP Q8 PRN PRN Reason: Excoriation Last Admin: 01/14/18 13:42 Dose: 1 applic Duloxetine HCl (Cymbalta) 20 mg PO DAILY [facility] Last Admin: 01/15/18 08:30 Dose: 20 mg Famotidine (Pepcid) 40 mg PO DAILY [facility] Last Admin: 01/15/18 08:30 Dose: 40 mg Metronidazole (Flagyl 500mg/100ml Ns) 100 mls @ 100 mls/hr IVPB Q8 [facility]; Protocol Last Admin: 01/15/18 18:20 Dose: 100 mls/hr Cefepime HCl 2 gm/ Sodium (Chloride) 100 mls @ 100 mls/hr IVPB Q8 [facility]; Protocol Last Admin: 01/15/18 18:17 Dose: 100 mls/hr Chromium/Copper/Manganese/Zinc (3 ml/ Sodium Chloride) 1,003 mls @ 125 mls/hr I V DAILY [facility] Stop: 01/16/18 17:02 Last Admin: 01/15/18 08:28 Dose: 125 mls/hr Potassium Chloride (K-Dur 20 Meq Er Tab) 40 meq PO BID [facility] Last Admin: 01/15/18 18:17 Dose: 40 meq - Labs Labs: 01/15/18 08:10 01/15/18 08:10 PT 16.4 Seconds (9.8-13.1) H 01/04/18 22:11 INR 1.5 01/04/18 22:11 APTT 28.9 Seconds (25.6-37.1) 01/04/18 22:11 - Head Exam Head Exam: ATRAUMATIC - Eye Exam Eye Exam: Normal appearance - ENT Exam ENT Exam: Mucous Membranes Dry - Respiratory Exam Respiratory Exam: NORMAL BREATHING PATTERN - Cardiovascular Exam Cardiovascular Exam: +S1, +S2 - GI/Abdominal Exam GI & Abdominal Exam: Normal Bowel Sounds Assessment and Plan (1) Pancytopenia Assessment & Plan: no malignancy noted in bone marrow awaiting cytogenetics to rule out MDS hypocellular marrow ? nutritional deficiency - noted low copper on supplementation other possibilities would include infectious etiology in bone marrow given chronic immunosuppression from UC treatment ? CMV ? parvo ?EBV Granix for severe neutropenia transfusion support Status: Acute
[2018-01-16] MEDS: Cefepime 2 GM in Sodium Chloride 0.9% 100 ML IVPB SCH ×3 (00:18→17:08)
[2018-01-16] MEDS: metroNIDAZOLE 500mg/100ml NS 100 ML IVPB SCH ×3 (01:23→17:07)
[2018-01-16] MEDS: ZINC IV SCH (09:08)
[2018-01-16] MEDS: SODIUM CHLORIDE IV SCH (09:08)
[2018-01-16] MEDS: CHROMIUM IV SCH (09:08)
[2018-01-16] MEDS: COPPER IV SCH (09:08)
[2018-01-16] MEDS: MANGANESE IV SCH (09:08)
[2018-01-16] MEDS: Potassium Chloride 20 mEq ER Tab PO SCH ×2 (09:10→17:09)
[2018-01-16] MEDS: Potassium & Sodium Phosphate PO SCH ×2 (09:11→17:09)
--- NOTE | 2018-01-16 14:12 | PN ---
DATE: 01/16/2018 SUBJECTIVE: The patient seen and examined. The patient seen for Dr. Mak while he is away. The patient with colitis and dehydration. The patient feels okay. Denies any chest pain or shortness of breath. Abdominal pain is controlled. According to the patient, the patient had no acute episodes of diarrhea, but according to nursing staff, the patient did have episodes of diarrhea overnight. PHYSICAL EXAMINATION: GENERAL: The patient is in no acute distress. VITAL SIGNS: Stable. HEART: S1 and S2. Normal and regular. LUNGS: Good bilateral air exchange. ABDOMEN: Soft and nontender. No sign of acute abdomen. No guarding. No rigidity. No rebound. Bowel sounds are plus and normal. EXTREMITIES: No edema. No calf swelling. No tenderness. No acute ischemia. LOCOMOTIVE CRANE OPERATOR HELPER: Exam is essentially unchanged. DIAGNOSTIC DATA: Available diagnostic data reviewed. Telemetry monitoring does not reveal significant arrhythmias. ASSESSMENT AND PLAN: Overall, the patient's general medical condition is stable. Plan as ordered. German Taylor MD
[2018-01-17 01:00] LABS: URINE BACTERIA RARE (<OCC); URINE BILIRUBIN NEGATIVE (NEGATIVE); URINE BLOOD NEGATIVE (NEGATIVE); URINE CLARITY SLIGHTY-CLOUDY (Clear); URINE COLOR AMBER (YELLOW); URINE GLUCOSE (UA) NEG (Normal); URINE HYALINE CAST 0-2 /hpf (0-2); URINE LEUKOCYTE ESTERASE NEG Leu/uL (Negative); URINE PROTEIN 30 mg/dL (NEGATIVE); URINE UROBILINOGEN 0.2-1.0 mg/dL (0.2-1.0)
[2018-01-17] MEDS: metroNIDAZOLE 500mg/100ml NS 100 ML IVPB SCH ×3 (01:10→17:23)
[2018-01-17] MEDS: Cefepime 2 GM in Sodium Chloride 0.9% 100 ML IVPB SCH ×3 (02:19→17:59)
[2018-01-17 07:35] LABS: MEAN CELL VOLUME 87.8 fl (80.0-94.0); MEAN CORPUSCULAR HGB CONC 34.2 g/dL (33.0-37.0); RBC 2.34 Mil/uL (4.40-5.90); RED CELL DISTRIBUTION WIDTH 15.5 % (11.5-14.5)
[2018-01-17 07:40] LABS: WHITE BLOOD COUNT 0.4 K/uL (4.8-10.8)
[2018-01-17 07:48] LABS: ALB/GLOB RATIO 0.7 (1.0-2.1); ALBUMIN 1.9 g/dL (3.5-5.0); ALT/SGPT 21 U/L (21-72); AST/SGOT 14 U/L (17-59); BLOOD UREA NITROGEN 9 mg/dl (9-20); GFR NON-AFRICAN AMERICAN > 60
[2018-01-17] MEDS: Potassium Chloride 20 mEq ER Tab PO SCH ×2 (10:57→18:19)
[2018-01-17] MEDS: Potassium Chl 40 mEq in D5-NS 1,000 ML IV SCH (11:40)
[2018-01-17] MEDS: Potassium & Sodium Phosphate PO SCH ×2 (12:05→17:59)
--- NOTE | 2018-01-17 12:19 | PN ---
DATE: 01/17/2018 SUBJECTIVE: The patient seen and examined. Interim events noted. The patient remains in progressive care unit on telemetry monitoring, in isolation. The patient is awake, responsive, but not a good historian. The patient feels okay. Denies any specific complaint of chest pain or shortness of breath, or abdominal pain, also does not report any diarrhea. PHYSICAL EXAMINATION: GENERAL: The patient is in no acute distress. VITAL SIGNS: Stable. HEART: S1, S2 normal and regular. LUNGS: Good bilateral air exchange. ABDOMEN: Soft, nontender. EXTREMITIES: No calf swelling. No tenderness. No acute ischemia. The patient does have generalized anasarca. SNOW REMOVING SUPERVISOR: Exam is essentially unchanged. SKIN: Exam reveals the patient does have pressure ulcer on back, uncomplicated, small, stage 3. DIAGNOSTIC DATA: Available diagnostic data reviewed. Telemetry monitoring does not show significant arrhythmias. ASSESSMENT AND PLAN: Overall, the patient's general medical condition is stable. Plan as ordered. German Taylor MD
--- NOTE | 2018-01-17 13:39 | CP.PCM.PN ---
Subjective - Date & Time of Evaluation Date of Evaluation: 01/17/18 Time of Evaluation: 09:00 - Subjective Subjective: seen on rounds aoppears weak debilitated and depressed afeb at present may need to repeat BM Bx with special stains for MAC await CMV studies IV antibiotics renewed Objective - Vital Signs/Intake and Output Vital Signs (last 24 hours): Temp Pulse Resp BP Pulse Ox 99.8 F H 117 H 22 103/71 100 01/17/18 12:00 01/17/18 12:00 01/17/18 12:00 01/17/18 12:00 01/17/18 12:00 - Medications Medications: Current Medications Dimethicone (Proshield Plus Skin Protectant) 1 applic TOP Q8 PRN PRN Reason: Excoriation Last Admin: 01/14/18 13:42 Dose: 1 applic Famotidine (Pepcid) 40 mg PO DAILY [facility] Last Admin: 01/17/18 10:57 Dose: Not Given Metronidazole (Flagyl 500mg/100ml Ns) 100 mls @ 100 mls/hr IVPB Q8 [facility]; Protocol Last Admin: 01/17/18 09:20 Dose: 100 mls/hr Cefepime HCl 2 gm/ Sodium (Chloride) 100 mls @ 100 mls/hr IVPB Q8 [facility]; Protocol Last Admin: 01/17/18 09:54 Dose: 100 mls/hr Potassium Chloride/Dextrose/Sod Cl (D5-Ns1l+40meq Kcl) 1,000 mls @ 80 mls/hr IV .[id number] [facility] Stop: 01/18/18 10:52 Potassium Chloride (K-Dur 20 Meq Er Tab) 40 meq PO BID [facility] Last Admin: 01/17/18 10:57 Dose: Not Given Potassium Phos/Sodium Phos (Neutra-Phos) 1 pkt PO BID [facility] Last Admin: 01/16/18 17:09 Dose: 1 pkt - Labs Labs: 01/17/18 07:20 01/17/18 07:20 PT 16.4 Seconds (9.8-13.1) H 01/04/18 22:11 INR 1.5 01/04/18 22:11 APTT 28.9 Seconds (25.6-37.1) 01/04/18 22:11 - Constitutional Appears: Non-toxic, Chronically Ill - Head Exam Head Exam: NORMOCEPHALIC - Eye Exam Eye Exam: PERRL - ENT Exam ENT Exam: Mucous Membranes Dry - Neck Exam Neck Exam: absent: Lymphadenopathy - Respiratory Exam Respiratory Exam: Decreased Breath Sounds - Cardiovascular Exam Cardiovascular Exam: REGULAR RHYTHM - GI/Abdominal Exam GI & Abdominal Exam: Distended, Soft - Rectal Exam Rectal Exam: Deferred - Exam Exam: NORMAL INSPECTION - Extremities Exam Extremities Exam: absent: Pedal Edema - Back Exam Back Exam: absent: CVA tenderness (L), CVA tenderness (R) Assessment and Plan (1) Abdominal pain Status: Acute (2) Colitis Status: Acute (3) Pancytopenia Status: Acute (4) Sepsis Status: Acute - Assessment and Plan (Free Text) Assessment: may need to repeat BM Bx with special stains for MAC await CMV studies IV antibiotics renewed
[2018-01-18] MEDS: Cefepime 2 GM in Sodium Chloride 0.9% 100 ML IVPB SCH (05:35)
[2018-01-18] MEDS: Potassium Chl 40 mEq in D5-NS 1,000 ML IV SCH ×2 (06:15→21:35)
[2018-01-18] MEDS: metroNIDAZOLE 500mg/100ml NS 100 ML IVPB SCH ×4 (06:16→16:47)
[2018-01-18] MEDS: Potassium & Sodium Phosphate PO SCH ×2 (08:26→16:35)
[2018-01-18] MEDS: Potassium Chloride 20 mEq ER Tab PO SCH ×2 (08:47→16:35)
[2018-01-18 09:57] LABS: HEMOGLOBIN 8.8 g/dL (12.0-18.0); MEAN CORPUSCULAR HEMOGLOBIN 29.2 pg (27.0-31.0); RBC 3.02 Mil/uL (4.40-5.90); RED CELL DISTRIBUTION WIDTH 14.8 % (11.5-14.5)
[2018-01-18 09:58] LABS: ALB/GLOB RATIO 0.7 (1.0-2.1); ALT/SGPT 19 U/L (21-72); AST/SGOT 15 U/L (17-59); BLOOD UREA NITROGEN 9 mg/dl (9-20); CALCIUM 6.8 mg/dL (8.4-10.2); GFR NON-AFRICAN AMERICAN > 60
[2018-01-18 10:03] LABS: WHITE BLOOD COUNT 0.5 K/uL (4.8-10.8)
--- NOTE | 2018-01-18 13:19 | PN ---
DATE: 01/18/2018 SUBJECTIVE: The patient seen and examined. Interim events noted. The patient remains in progressive care unit, on telemetry monitoring. The patient is not a good historian . No overt chest pain. No shortness of breath. No overt distress. PHYSICAL EXAMINATION: GENERAL: The patient is in no acute distress. VITAL SIGNS: Stable. HEART: S1 and S2, normal and regular. LUNGS: Good bilateral air exchange. ABDOMEN: Soft and nontender. The patient has minimal rash on left side of abdomen, probably related to pressure or may be related to thrombocytopenia, but does not look like ecchymosis. Abdomen otherwise is soft and non-acute. No guarding. No rigidity. No rebound. Bowel sounds are plus and normal. EXTREMITIES: No edema. No calf swelling. No tenderness. No acute ischemia. ASSISTANT BRAND MANAGER: Exam is essentially unchanged. DIAGNOSTIC DATA: Available diagnostic data reviewed. WBC is 0.4, platelets count , and the patient was transfused platelet. ASSESSMENT AND PLAN: Overall, the patient's general medical condition is hemodynamically stable. Prognosis is very guarded. Plan as ordered. German Taylor MD
[2018-01-18] MEDS: Proshield Plus GEL TOP PRN (16:35)
[2018-01-18] MEDS: Micafungin 100 MG in Sodium Chloride 0.9% 100 ML IVPB SCH (23:54)
[2018-01-19] MEDS: Cefepime 2 GM in Sodium Chloride 0.9% 100 ML IVPB SCH ×3 (00:48→18:49)
[2018-01-19] MEDS: metroNIDAZOLE 500mg/100ml NS 100 ML IVPB SCH ×3 (00:51→18:47)
[2018-01-19] MEDS ORDERED: Cefepime 2 GM in Sodium Chloride 0.9% 100 ML IVPB SCH (01:00)
[2018-01-19 06:54] LABS: ALB/GLOB RATIO 0.7 (1.0-2.1); ALT/SGPT 13 U/L (21-72); AST/SGOT 16 U/L (17-59); BLOOD UREA NITROGEN 17 mg/dl (9-20); CALCIUM 7.3 mg/dL (8.4-10.2); GFR NON-AFRICAN AMERICAN > 60
[2018-01-19 07:36] LABS: HEMOGLOBIN 9.4 g/dL (12.0-18.0); MEAN CORPUSCULAR HEMOGLOBIN 29.8 pg (27.0-31.0); MEAN CORPUSCULAR HGB CONC 34.3 g/dL (33.0-37.0); RBC 3.14 Mil/uL (4.40-5.90); RED CELL DISTRIBUTION WIDTH 15.6 % (11.5-14.5)
[2018-01-19 07:39] LABS: WHITE BLOOD COUNT 0.5 K/uL (4.8-10.8)
[2018-01-19] MEDS: Proshield Plus GEL TOP PRN ×2 (08:49→18:40)
[2018-01-19] MEDS: Potassium Chloride 20 mEq ER Tab PO SCH ×3 (08:52→18:39)
[2018-01-19] MEDS: Potassium & Sodium Phosphate PO SCH ×2 (08:54→18:40)
--- NOTE | 2018-01-19 11:55 | CP.PCM.PN ---
Subjective - Date & Time of Evaluation Date of Evaluation: 01/19/18 Time of Evaluation: 09:15 - Subjective Subjective: Patient seen and examined during rounds this morning. Patient looks weak and lethargic. Had episode of fever last night. As per nurse, pt looks more weak and lethargic than yesterday. Patient did not eat breakfast this morning. Objective - Vital Signs/Intake and Output Vital Signs (last 24 hours): Temp Pulse Resp BP Pulse Ox 98.4 F 116 H 18 97/66 L 99 01/19/18 07:59 01/19/18 07:59 01/19/18 07:59 01/19/18 07:59 01/19/18 07:59 - Medications Medications: Current Medications Acetaminophen (Tylenol 650 Mg Supp) 650 mg HI ONCE PRN PRN Reason: Fever >100.4 F Last Admin: 01/19/18 00:47 Dose: 650 mg Dimethicone (Proshield Plus Skin Protectant) 1 applic TOP Q8 PRN PRN Reason: Excoriation Last Admin: 01/19/18 08:49 Dose: 1 applic Famotidine (Pepcid) 40 mg PO DAILY [facility] Last Admin: 01/19/18 08:54 Dose: 40 mg Metronidazole (Flagyl 500mg/100ml Ns) 100 mls @ 100 mls/hr IVPB Q8 [facility]; Protocol Last Admin: 01/19/18 08:49 Dose: 100 mls/hr Potassium Chloride/Dextrose/Sod Cl (D5-Ns1l+40meq Kcl) 1,000 mls @ 80 mls/hr IV .[id number] [facility] Stop: 01/19/18 19:45 Last Admin: 01/18/18 21:35 Dose: 80 mls/hr Cefepime HCl 2 gm/ Sodium (Chloride) 100 mls @ 100 mls/hr IVPB Q8 [facility]; Protocol Last Admin: 01/19/18 08:53 Dose: 100 mls/hr Micafungin Sodium 100 mg/ (Sodium Chloride) 100 mls @ 100 mls/hr IVPB DAILY [facility]; Protocol Last Admin: 01/18/18 23:54 Dose: 100 mls/hr Potassium Chloride (K-Dur 20 Meq Er Tab) 40 meq PO BID [facility] Last Admin: 01/19/18 08:52 Dose: 40 meq Potassium Phos/Sodium Phos (Neutra-Phos) 1 pkt PO BID [facility] Last Admin: 01/19/18 08:54 Dose: 1 pkt - Labs Labs: 01/19/18 04:20 01/19/18 04:20 PT 16.4 Seconds (9.8-13.1) H 01/04/18 22:11 INR 1.5 01/04/18 22:11 APTT 28.9 Seconds (25.6-37.1) 01/04/18 22:11 - Constitutional Appears: Other (Drowsy and looks ill) - Head Exam Head Exam: NORMAL INSPECTION - Eye Exam Eye Exam: EOMI, Normal appearance - ENT Exam ENT Exam: Mucous Membranes Moist - Respiratory Exam Respiratory Exam: Clear to Ausculation Bilateral. absent: Rhonchi, Wheezes - Cardiovascular Exam Cardiovascular Exam: REGULAR RHYTHM, +S1, +S2 - GI/Abdominal Exam GI & Abdominal Exam: Soft, Normal Bowel Sounds. absent: Tenderness - Neurological Exam Neurological Exam: Altered - Skin Additional comments: Ecchymosis of B/L arms and swelling of B/L arms Assessment and Plan - Assessment and Plan (Free Text) Assessment: 57 y/o male with pmhx of UC presents with abdominal pain and bloody BM's, found to have colitis and pancytopenia s/p BM biopsy. Receiving empiric antibiotics for neutropenic fever and IV Copper for Copper deficiency. Pt line not stable, may need central line. Has worsening lethargy this morning. -Head CT ordered. -Worsening Pancytopenia s/p Granix and platelet infusion. -Bone Marrow Biopsy (final report): Bone marrow biopsy show low for the age cellularity. Trilineage hemotopoiesis. Megakaryocytes are seen. Flow cytometry analysis shows immunophenotypic evidence of left shifted myeloid maturation and <1% myeloblasts. No immunophenotypic evidence of lymphoproliferative disorder. No metastatic malignancy seen. Stainable iron is seen mostly in kupffer cells. Reticulin stain is not increased. -ID Consulted, Empiric ABX, antifungal and antiviral tx. -Ophthalmology consult for CMV retinitis exam -f/u labs Discussed case with Dr. Mak
--- NOTE | 2018-01-19 12:05 | CP.PCM.PN ---
Subjective - Date & Time of Evaluation Date of Evaluation: 01/19/18 Time of Evaluation: 06:00 - Subjective Subjective: weak lethargic febrile profoundly pancytopenic iv antibiotics in progress all cultures neg thus far additional path reports requested PCR CMV pending Objective - Vital Signs/Intake and Output Vital Signs (last 24 hours): Temp Pulse Resp BP Pulse Ox 98.4 F 116 H 18 97/66 L 99 01/19/18 07:59 01/19/18 07:59 01/19/18 07:59 01/19/18 07:59 01/19/18 07:59 - Medications Medications: Current Medications Acetaminophen (Tylenol 650 Mg Supp) 650 mg MN ONCE PRN PRN Reason: Fever >100.4 F Last Admin: 01/19/18 00:47 Dose: 650 mg Dimethicone (Proshield Plus Skin Protectant) 1 applic TOP Q8 PRN PRN Reason: Excoriation Last Admin: 01/19/18 08:49 Dose: 1 applic Famotidine (Pepcid) 40 mg PO DAILY [facility] Last Admin: 01/19/18 08:54 Dose: 40 mg Metronidazole (Flagyl 500mg/100ml Ns) 100 mls @ 100 mls/hr IVPB Q8 [facility]; Protocol Last Admin: 01/19/18 08:49 Dose: 100 mls/hr Potassium Chloride/Dextrose/Sod Cl (D5-Ns1l+40meq Kcl) 1,000 mls @ 80 mls/hr IV .[id number] [facility] Stop: 01/19/18 19:45 Last Admin: 01/18/18 21:35 Dose: 80 mls/hr Cefepime HCl 2 gm/ Sodium (Chloride) 100 mls @ 100 mls/hr IVPB Q8 [facility]; Protocol Last Admin: 01/19/18 08:53 Dose: 100 mls/hr Micafungin Sodium 100 mg/ (Sodium Chloride) 100 mls @ 100 mls/hr IVPB DAILY [facility]; Protocol Last Admin: 01/18/18 23:54 Dose: 100 mls/hr Acyclovir 500 mg/ Sodium (Chloride) 100 mls @ 100 mls/hr IV Q8 [facility]; Protocol Potassium Chloride (K-Dur 20 Meq Er Tab) 40 meq PO BID [facility] Last Admin: 01/19/18 09:00 Dose: Not Given Potassium Phos/Sodium Phos (Neutra-Phos) 1 pkt PO BID [facility] Last Admin: 01/19/18 08:54 Dose: 1 pkt - Labs Labs: 01/19/18 04:20 01/19/18 04:20 PT 16.4 Seconds (9.8-13.1) H 01/04/18 22:11 INR 1.5 01/04/18 22:11 APTT 28.9 Seconds (25.6-37.1) 01/04/18 22:11 - Constitutional Appears: Non-toxic, Confused, Chronically Ill - Head Exam Head Exam: NORMOCEPHALIC - Eye Exam Eye Exam: PERRL - ENT Exam ENT Exam: Mucous Membranes Dry - Neck Exam Neck Exam: absent: Lymphadenopathy - Respiratory Exam Respiratory Exam: Decreased Breath Sounds - Cardiovascular Exam Cardiovascular Exam: REGULAR RHYTHM - GI/Abdominal Exam GI & Abdominal Exam: Distended, Soft - Rectal Exam Rectal Exam: Deferred - Exam Exam: NORMAL INSPECTION - Extremities Exam Extremities Exam: absent: Pedal Edema - Back Exam Back Exam: absent: CVA tenderness (L), CVA tenderness (R) - Neurological Exam Neurological Exam: Altered Assessment and Plan (1) Abdominal pain Status: Acute (2) Colitis Status: Acute (3) Pancytopenia Status: Acute (4) Sepsis Status: Acute - Assessment and Plan (Free Text) Assessment: weak lethargic febrile profoundly pancytopenic iv antibiotics in progress all cultures neg thus far additional path reports requested PCR CMV pending on antifungal, antibiotics and antivirals prognosis poor from outset
[2018-01-19] MEDS ORDERED: Acyclovir 500 MG in Sodium Chloride 0.9% 100 ML IV SCH (12:15)
[2018-01-19] MEDS ORDERED: Tropicamide 1% Opht 150 DROP/15 ML OU ONE (12:15)
[2018-01-19] MEDS ORDERED: Phenylephrine 10% Opht Soln OU ONE (12:18)
--- NOTE | 2018-01-19 13:12 | CT ---
Date of service: 01/19/2018 PROCEDURE: CT HEAD WITHOUT CONTRAST. HISTORY: ams COMPARISON: None available. TECHNIQUE: Axial computed tomography images were obtained through the head/brain without intravenous contrast. Radiation dose: Total exam DLP = 1932.47 mGy-cm. This CT exam was performed using one or more of the following dose reduction techniques: Automated exposure control, adjustment of the mA and/or kV according to patient size, and/or use of iterative reconstruction technique. FINDINGS: HEMORRHAGE: No intracranial hemorrhage. BRAIN: Evaluation limited due to patient motion artifact. This particularly obscures the posterior fossa. No evidence of acute infarct. No intracranial mass. Old left cerebellar hemispheric infarct noted. Chronic periventricular white matter ischemic change noted adjacent to the frontal horns of the lateral ventricles. VENTRICLES: Unremarkable. No hydrocephalus. CALVARIUM: Unremarkable. PARANASAL SINUSES: Unremarkable as visualized. No significant inflammatory changes. MASTOID AIR CELLS: Unremarkable as visualized. No inflammatory changes. OTHER FINDINGS: None. IMPRESSION: No intracranial mass, hemorrhage or evidence of acute infarct. Old left cerebellar hemispheric infarct. Chronic white matter ischemic change. Examination limited due to patient motion artifact.
[2018-01-19 13:15] LABS: PARVOVIRUS B19 AB (IGG) 5.1 (<0.9); PARVOVIRUS B19 AB (IGM) 0.3 (<0.9)
--- NOTE | 2018-01-19 13:21 | PCM.RRT ---
[facility] Nurse Assessment - Situation [facility] Responder Arrival Time: 13:09 Location: Room Number: 411 [facility] Reason for Call: Change in Mental Status [facility] Called By: RN - IV IV Inserted during [facility]LLED [facility]AM [facility]ACER?: No IV Fluids Initiated During [facility]LL[facility]ACER?: on 2 L - Respiratory Oxygen Delivery Method: Nasal Cannula Received Nebulizer Treatments: No Was the Patient Ventilated with Bag/Mask 100% O2?: No Secretions Suctioned?: No Was the Patient Intubated?: No Was the Patient Placed on a Ventilator?: No - Diagnostic Test Ordered EKG: No Chest X-Ray: No CT Scan: No (Just returned from getting head CT) CPR started during ROLLED [facility]AM [facility]ACER?: No - Vital Signs Vital Signs: Rapid Response Vital Sign Blood Pressure 118/79 Pulse Rate 117 Respiratory Rate 15 Temperature 99.1F Oxygen Saturation 98% - [place] Coma Scale Coma Scale Eye Opening: Spontaneous Coma Scale Verbal: No response - Sepsis Screen Part 2 Sepsis Screen Part 2: Platelets under 80,000 - Time [facility] Ended Time [facility] Ended: 01:19 - Vital Signs at end of [facility] Vital Signs at end of [facility]LLED [facility]: Rapid Response End Vital Sign Blood Pressure 132/78 Pulse Rate 112 Respiratory Rate 16 Temperature 99.1 F O2 Sat by Pulse Oximetry 99% - Recommendations [facility] Level of Care Recommendations: Transfer to ICU (Refer for tertiary care) - Respiratory Oxygen Delivery Method: Room Air
--- NOTE | 2018-01-19 13:33 | CP.PCM.PCO ---
Assessment & Plan - Assessment and Plan (Free Text) Assessment: [facility] transfer center called at [phone] regarding request for transfer Patient's hospitalization discussed with admitting hospitalist at [facility] pt. is accepted and will be transferred to [facility] once [facility]/ ICU bed available Face sheet faxed to [phone] Above notified to , , , and in ICU
--- NOTE | 2018-01-19 16:14 | CP.CCUPN ---
CCU Subjective - Physician Review Subjective (Free Text): 01/19/18 19:20 The patient was Seen/interviewed and examined by me at the bedside, Medical records reviewed and Management issues were discussed and formulated with the house staff. Events reviewed Mr Cuevas is a 57 Years old Male with PMHx of Ulcerative Colitis Who intially presents to the ED on for evaluation of abdominal pain, of two months duration. Patient reports he was recently hospitalized at [facility] for approximately 2 months and discharged home a few days ago, Upon returning home, patient reports pain worsened despite medications prescribed to him. He was admitted to telemetry for further management of acute colitis, possible sec to exacerbation of UC Hospital course noted for Pancytopenia S/P bone marrow biopsy. Incidental finding was copper deficiency S/P supplementation PHLEBOTOMIST LAB ASSISTANT called today for altered mental status, Head CT scan was negative for bleed/mass/midline shift. He was transferred to ICU for further management of severe sepsis and Pancytopenia Awake, comfortable, NAD No Vasopressors, hemodynamically stable Alert, follows some commands Denies any chest pain, SOB or Palpitations Breathing unlabored, on 2L NC O2 sat 99-100%. Afebrile, NSR on the monitor On Exam he has extensive Bilateral ecchmosis Has only one peripheral IV Right hand and was not functioning well, multiple attempts for good PIV for blood products transfusion was unsuccessful Pt with very low platelets count but no other IV access avilable Under complete aseptic precaution urgent central line placed Right femoral, patient tolerated well, no bleeding noted Immediately upon TLC placement platelets transfusion initiated Floor team contacted the [facility] transfer center ([phone]) regarding request for transfer, he was accepted pending bed availability Pt's current status is discussed with pt / pt's family Critical Care Time Spent (in minutes): 42 CCU Objective - Vital Signs / Intake & Output Vital Signs (Last 4 hours): Vital Signs Temp Pulse Resp BP Pulse Ox 01/19/18 13:20 99.3 F 114 H 19 132/78 100 01/19/18 12:19 99 F 113 H 18 117/89 95 - Physical Exam Physical Exam Limitations: Positive for: Altered Mental Status, Clinical Condition, Uncooperative Head: Positive for: Atraumatic, Normocephalic Pupils: Positive for: PERRL. Negative for: Sluggish, Non-Reactive Extroacular Muscles: Positive for: EOMI. Negative for: Gaze Palsy, Entrapment Conjunctiva: Positive for: Normal. Negative for: Injected, Icteric Nose (Internal): Positive for: Normal Inspection Neck: Positive for: Normal Range of Motion, Trachea Midline. Negative for: Meningeal Signs, MIDLINE TENDERNESS, Paraspinal Tenderness, JVD, Lymphadenopathy, Bruit, Other Respiratory/Chest: Positive for: Decreased Breath Sounds, Rales, Rhonchi. Negative for: Respiratory Distress, Accessory Muscle Use, Wheezes Cardiovascular: Positive for: Regular Rate and Rhythm, Normal S1, S2, Peripheal Pulses Present. Negative for: Murmurs, Tachycardic, Bradycardic Abdomen: Positive for: Distention, Normal Bowel Sounds. Negative for: Tenderness Upper Extremity: Positive for: Edema, NORMAL PULSES, Swelling, Erythema, Other (Extensive Eccymosis ). Negative for: Normal Inspection, Cyanosis Lower Extremity: Positive for: Edema, NORMAL PULSES, Capillary Refill < 2 s, Other (Extensive Eccymosis ). Negative for: Normal Inspection, CALF TENDERNESS, Cyanosis Skin: Positive for: Erythematous, Other (R. Gluteal Cleft Stage II pressure ulcer) Psychiatric: Positive for: Alert - Medications Active Medications: Active Medications Generic Name Dose Route Start Last Admin Trade Name Freq PRN Reason Stop Dose Admin Acetaminophen 650 mg 01/19/18 00:20 01/19/18 00:47 Tylenol 650 Mg Supp VT 650 mg ONCE PRN Administration Fever >100.4 F Dimethicone 1 applic 01/14/18 11:25 01/19/18 08:49 Proshield Plus Skin Protectant TOP 1 applic Q8 PRN Administration Excoriation Famotidine 40 mg 01/08/18 09:00 01/19/18 08:54 Pepcid PO 40 mg DAILY [facility] Administration Metronidazole 100 mls @ 100 mls/hr 01/10/18 01:00 01/19/18 08:49 Flagyl 500mg/100ml Ns IVPB 100 mls/hr Q8 [facility] Administration Protocol Potassium Chloride/Dextrose/Sod Cl 1,000 mls @ 80 mls/hr 01/18/18 19:45 01/18/18 21:35 D5-Ns1l+40meq Kcl IV 01/19/18 19:45 80 mls/hr .[id number] [facility] Administration Cefepime HCl 2 gm/ Sodium 100 mls @ 100 mls/hr 01/19/18 01:00 01/19/18 08:53 Chloride IVPB 100 mls/hr Q8 [facility] Administration Protocol Micafungin Sodium 100 mg/ 100 mls @ 100 mls/hr 01/18/18 09:00 01/18/18 23:54 Sodium Chloride IVPB 100 mls/hr DAILY [facility] Administration Protocol Acyclovir 500 mg/ Sodium 100 mls @ 100 mls/hr 01/19/18 12:15 Chloride IV Q8 [facility] Protocol Potassium Chloride 40 meq 01/14/18 17:00 01/19/18 09:00 K-Dur 20 Meq Er Tab PO Not Given BID [facility] Potassium Phos/Sodium Phos 1 pkt 01/16/18 09:00 01/19/18 08:54 Neutra-Phos PO 1 pkt BID [facility] Administration - Patient Studies Lab Studies: Microbiology Studies 01/16/18 09:10 Urine Culture - Final Urine No Growth (<1,000 CFU/ML) Lab Studies 01/19/18 01/19/18 01/19/18 Range/Units 13:15 11:43 04:20 WBC (4.8-10.8) K/uL RBC (4.40-5.90) Mil/uL Hgb (12.0-18.0) g/dL Hct (35.0-51.0) % MCV (80.0-94.0) fl MCH (27.0-31.0) pg MCHC (33.0-37.0) g/dL RDW (11.5-14.5) % Plt Count (130-400) K/uL Sodium 143 (132-148) mmol/l Potassium 4.3 (3.6-5.0) MMOL/L Chloride 119 H (98-107) mmol/L Carbon Dioxide 16 L (22-30) mmol/L Anion Gap 12 (10-20) BUN 17 (9-20) mg/dl Creatinine 0.4 L (0.8-1.5) mg/dl Est GFR ( Amer) > 60 Est GFR (Non-Af Amer) > 60 POC Glucose (mg/dL) 103 (65-110) mg/dL Random Glucose 131 H (75-110) mg/dL Lactic Acid 5.5 H* (0.7-2.1) MMOL/L Calcium 7.3 L (8.4-10.2) mg/dL Phosphorus 1.7 L (2.5-4.5) mg/dl Magnesium 1.9 (1.6-2.3) MG/DL Total Bilirubin 1.1 (0.2-1.3) mg/dl AST 16 L (17-59) U/L ALT 13 L D (21-72) U/L Alkaline Phosphatase 86 (38-126) U/L Total Protein 5.0 L (6.3-8.2) G/DL Albumin 2.0 L (3.5-5.0) g/dL Globulin 3.0 (2.2-3.9) gm/dL Albumin/Globulin Ratio 0.7 L (1.0-2.1) Parvovirus B19 IgG Ab (<0.9) Parvovirus B19 IgM Ab (<0.9) Parvovirus Interpret 01/19/18 01/15/18 Range/Units 04:20 14:47 WBC 0.5 L* (4.8-10.8) K/uL RBC 3.14 L (4.40-5.90) Mil/uL Hgb 9.4 L (12.0-18.0) g/dL Hct 27.4 L (35.0-51.0) % MCV 87.0 (80.0-94.0) fl MCH 29.8 (27.0-31.0) pg MCHC 34.3 (33.0-37.0) g/dL RDW 15.6 H (11.5-14.5) % Plt Count 8 L* D (130-400) K/uL Sodium (132-148) mmol/l Potassium (3.6-5.0) MMOL/L Chloride (98-107) mmol/L Carbon Dioxide (22-30) mmol/L Anion Gap (10-20) BUN (9-20) mg/dl Creatinine (0.8-1.5) mg/dl Est GFR ( Amer) Est GFR (Non-Af Amer) POC Glucose (mg/dL) (65-110) mg/dL Random Glucose (75-110) mg/dL Lactic Acid (0.7-2.1) MMOL/L Calcium (8.4-10.2) mg/dL Phosphorus (2.5-4.5) mg/dl Magnesium (1.6-2.3) MG/DL Total Bilirubin (0.2-1.3) mg/dl AST (17-59) U/L ALT (21-72) U/L Alkaline Phosphatase (38-126) U/L Total Protein (6.3-8.2) G/DL Albumin (3.5-5.0) g/dL Globulin (2.2-3.9) gm/dL Albumin/Globulin Ratio (1.0-2.1) Parvovirus B19 IgG Ab 5.1 H (<0.9) Parvovirus B19 IgM Ab 0.3 (<0.9) Parvovirus Interpret Laboratory Results - last 24 hr 01/15/18 01/19/18 01/19/18 14:47 04:20 04:20 WBC 0.5 L* RBC 3.14 L Hgb 9.4 L Hct 27.4 L MCV 87.0 MCH 29.8 MCHC 34.3 RDW 15.6 H Plt Count 8 L* D Sodium 143 Potassium 4.3 Chloride 119 H Carbon Dioxide 16 L Anion Gap 12 BUN 17 Creatinine 0.4 L Est GFR ( Amer) > 60 Est GFR (Non-Af Amer) > 60 POC Glucose (mg/dL) Random Glucose 131 H Lactic Acid Calcium 7.3 L Phosphorus 1.7 L Magnesium 1.9 Total Bilirubin 1.1 AST 16 L ALT 13 L D Alkaline Phosphatase 86 Total Protein 5.0 L Albumin 2.0 L Globulin 3.0 Albumin/Globulin Ratio 0.7 L Parvovirus B19 IgG Ab 5.1 H Parvovirus B19 IgM Ab 0.3 Parvovirus Interpret 01/19/18 01/19/18 11:43 13:15 WBC RBC Hgb Hct MCV MCH MCHC RDW Plt Count Sodium Potassium Chloride Carbon Dioxide Anion Gap BUN Creatinine Est GFR ( Amer) Est GFR (Non-Af Amer) POC Glucose (mg/dL) 103 Random Glucose Lactic Acid 5.5 H* Calcium Phosphorus Magnesium Total Bilirubin AST ALT Alkaline Phosphatase Total Protein Albumin Globulin Albumin/Globulin Ratio Parvovirus B19 IgG Ab Parvovirus B19 IgM Ab Parvovirus Interpret Review of Systems - Review of Systems Systems not reviewed;Unavailable: Altered Mental Status Critical Care Progress Note - Extremities/Vascular Does the Patient have a Central Venous Catheter?: No Does the Patient need a Central Venous Catheter?: No Does the Patient have a Reyes Catheter?: No Does the Patient need a Reyes Catheter?: No - Nutrition Nutrition: Nutrition Category Date Time Status Heart Healthy Diet [DIET] Diets 01/07/18 Lunch Active Assessment/Plan (1) Severe sepsis Current Visit: Yes Status: Acute (2) Pancytopenia Current Visit: Yes Status: Acute (3) Acute colitis Current Visit: Yes Status: Acute (4) Metabolic encephalopathy Current Visit: Yes Status: Acute Priority: High - Assessment and Plan (Free Text) Assessment: NPO patient currently receiving Platelets transfusion, continue to monitor CBC Stat labs sent Continue with IV PPI and octreotide infusion therapies Administer dose of DDAVP x 1 Continue antibiotic, antifungal and antivirals as per ID, further work up in progress requent neuro check, low threshold for intubation if any further worsening of mental status or becomes hemodynamically Unstable Maintain MAP 65-75 IVF hydration Strict I&O, daily Wt Maintain aspiration precautions HOB maintained at 30 degrees.
[2018-01-19 18:21] LABS: VENOUS BLOOD GAS BASE EXCESS -3.2 mmol/L (0.0-2.0); VENOUS BLOOD GAS PCO2 27 mmHg (40-60); VENOUS BLOOD GAS PO2 38 mm/Hg (30-55); VENOUS BLOOD PH 7.46 (7.32-7.43)
[2018-01-19] MEDS: Potassium Chl 40 mEq in D5-NS 1,000 ML IV SCH (18:30)
[2018-01-19] MEDS: Micafungin 100 MG in Sodium Chloride 0.9% 100 ML IVPB SCH (18:47)
--- NOTE | 2018-01-19 18:47 | PCM.PROC ---
Procedures Attestation:: I certify that I have explained the specified Operation(s) or Procedure(s), risks, benefits and reasonable alternatives to the Patient and/or other person responsible. The opportunity was given to ask questions and all questions answered - Central Line Placement Left Femoral Triple Lumen Catheter Aseptic technique was employed throughout the procedure: Hand Hygiene done prior to procedure, Full sterile barriers (mask, hair cover, sterile gown, sterile gloves), Full body sterile drape, Chloraprep Antiseptic: 30 second prep for IJ or SC sites CVP Time Out Performed: Yes Pt. Placed on Pulse Ox Monitor: Yes Central Line Prep: Chlorhexidine-Alcohol Combination Local Anesthesia Used: Lidocaine 1% Amount of Anesthesia Used (mls): 10 Ultrasound Used for Placement: Yes Central Line Lumen Inserted: triple Central Line Length: 16 cm Post Procedure: Sutured in Place, Good Blood Return, All Ports Aspirated, Flushed, Capped, Sterile Dressing Applied Secured by: Suture Post procedure dressing: Gauze, Clear vapor permeable, Chlorhexidine disc (Biopatch) Post Procedure X-Ray: No Patient Tolerated Procedure: Well Immediate Complications: None
[2018-01-19 19:20] LABS: EOS % 0.6 % (0.0-4.0); LYMPH # 0.3 K/uL (1.0-4.3); LYMPH % 65.2 % (20.0-40.0); MEAN CELL VOLUME 87.1 fl (80.0-94.0); MEAN CORPUSCULAR HEMOGLOBIN 29.5 pg (27.0-31.0); MEAN CORPUSCULAR HGB CONC 33.9 g/dL (33.0-37.0); MEAN PLATELET VOLUME 10.5 fl (7.2-11.7); MONO # 0.1 K/uL (0.0-0.8); MONO % 22.8 % (0.0-10.0); NEUT # 0.1 K/uL (1.8-7.0); NEUT % 11.4 % (50.0-75.0); NRBC % 14.7 % (0.0-0.0); RBC 3.04 Mil/uL (4.40-5.90); RED CELL DISTRIBUTION WIDTH 15.7 % (11.5-14.5)
[2018-01-19 19:22] LABS: WHITE BLOOD COUNT 0.5 K/uL (4.8-10.8)
[2018-01-19 19:23] LABS: INR 1.7
[2018-01-19 19:25] LABS: PARTIAL THROMBOPLASTIN TIME 35.9 Seconds (25.6-37.1)
[2018-01-19] MEDS ORDERED: Desmopressin 4 mcg/ml Inj (10 ml) SC ONE (19:44)
[2018-01-19 19:47] LABS: ALB/GLOB RATIO 0.6 (1.0-2.1); ALBUMIN 1.9 g/dL (3.5-5.0); ALT/SGPT 14 U/L (21-72); AST/SGOT 17 U/L (17-59); BLOOD UREA NITROGEN 17 mg/dl (9-20); CALCIUM 7.4 mg/dL (8.4-10.2); GFR NON-AFRICAN AMERICAN > 60
[2018-01-19] MEDS ORDERED: Etomidate 20 mg/10ml Inj IV ONE (20:01)
[2018-01-19] MEDS ORDERED: Rocuronium 10 mg/ml (5 ml) IV ONE (20:02)
[2018-01-19] MEDS ORDERED: Desmopressin 4 mcg/ml Inj (10 ml) IV ONE (20:14)
[2018-01-19] MEDS ORDERED: DESMOPRESSIN IV ONE (20:15)
[2018-01-19] MEDS ORDERED: SODIUM CHLORIDE 0.9% IV ONE (20:15)
[2018-01-19] MEDS ORDERED: Propofol 10 mg/ml 1,000 MG/100 ML VIAL ONE (20:20)
[2018-01-19] MEDS: Propofol 10 mg/ml 1,000 MG/100 ML VIAL IV SCH (21:00)
--- NOTE | 2018-01-19 21:54 | PCM.PROC ---
Procedures Attestation:: I certify that I have explained the specified Operation(s) or Procedure(s), risks, benefits and reasonable alternatives to the Patient and/or other person responsible. The opportunity was given to ask questions and all questions answered - Intubation Time Out Performed: Yes Sedative: Etomidate Paralytic: Rocuronimum Laryngoscope: Glidescope ET Tube Size: 8.0 ET Tube Secured at Depth: 23 ET Tube Secured Locarion: Lips ET Tube Placement Confirmation: Visualized Passing Through Cords, Breath Sounds Equal Bilaterally, Confirmation w/Capnometry Patient Tolerated Procedure: Well Procedure Immediate Complications: None
[2018-01-19] MEDS ORDERED: KCL 40MEQ/NS 1L 1,000 ML IV SCH (22:00)
[2018-01-20 00:02] LABS: ABG ALLEN TEST YES; ARTERIAL BLOOD GAS HCO3 21.1 mmol/L (21-28); ARTERIAL BLOOD GAS HEMOGLOBIN 8.4 g/dL (11.7-17.4); ARTERIAL BLOOD GAS O2 CONTENT 12.1 ML/dL (15-23); ARTERIAL BLOOD GAS O2 SAT 100.5 % (95-98); ARTERIAL BLOOD GAS PCO2 22 mm/Hg (35-45); ARTERIAL BLOOD GAS PO2 190 mm/Hg (80-100); ARTERIAL BLOOD GAS TCO2 17.9 mmol/L (22-28)
[2018-01-20] MEDS: Propofol 10 mg/ml 1,000 MG/100 ML VIAL IV SCH ×3 (01:00→13:08)
[2018-01-20] MEDS: metroNIDAZOLE 500mg/100ml NS 100 ML IVPB SCH ×3 (01:31→16:41)
[2018-01-20] MEDS: Acyclovir 500 MG in Sodium Chloride 0.9% 100 ML IV SCH ×3 (01:32→17:43)
[2018-01-20] MEDS: Cefepime 2 GM in Sodium Chloride 0.9% 100 ML IVPB SCH ×2 (01:33→08:38)
[2018-01-20 05:26] LABS: ABG ALLEN TEST YES; ARTERIAL BLOOD GAS HCO3 21.5 mmol/L (21-28); ARTERIAL BLOOD GAS HEMOGLOBIN 8.3 g/dL (11.7-17.4); ARTERIAL BLOOD GAS O2 CAPACITY 11.9 mL/dL (16-24); ARTERIAL BLOOD GAS O2 SAT 100.9 % (95-98); ARTERIAL BLOOD GAS PCO2 22 mm/Hg (35-45); ARTERIAL BLOOD GAS PH 7.51 (7.35-7.45); ARTERIAL BLOOD GAS PO2 193 mm/Hg (80-100); ARTERIAL BLOOD GAS TCO2 18.3 mmol/L (22-28)
[2018-01-20 05:55] LABS: HEMOGLOBIN 8.2 g/dL (12.0-18.0); MEAN CELL VOLUME 87.6 fl (80.0-94.0); MEAN CORPUSCULAR HEMOGLOBIN 29.6 pg (27.0-31.0); MEAN CORPUSCULAR HGB CONC 33.8 g/dL (33.0-37.0); RBC 2.76 Mil/uL (4.40-5.90); RED CELL DISTRIBUTION WIDTH 16.1 % (11.5-14.5)
--- NOTE | 2018-01-20 06:53 | CON ---
DATE: 01/19/2018 HISTORY OF PRESENT ILLNESS: The patient is a 57-year-old male who I was asked to see on consultation at [facility]. At my exam, he is unresponsive. His pupils were dilated with Truman-Synephrine and Mydriacyl. The fundus exam revealed no evidence of any retinitis or eye disease. Theodore Mac MD
[2018-01-20 07:24] LABS: BLOOD UREA NITROGEN 23 mg/dl (9-20); CALCIUM 7.2 mg/dL (8.4-10.2); GFR NON-AFRICAN AMERICAN > 60
[2018-01-20 07:34] LABS: WHITE BLOOD COUNT 0.7 K/uL (4.8-10.8)
[2018-01-20] MEDS: Micafungin 100 MG in Sodium Chloride 0.9% 100 ML IVPB SCH (08:39)
[2018-01-20] MEDS: Potassium & Sodium Phosphate PO SCH ×3 (08:40→16:54)
--- NOTE | 2018-01-20 10:46 | RAD ---
Date of service: 01/19/2018 HISTORY: colitis COMPARISON: CT abdomen and pelvis 01/05/2018 FINDINGS: BOWEL: The transverse colon is distended up to 11 cm previously this was approximately 10 cm on the manager hospitality image CT study Below this are multiple small bowel loops that are not particularly distended but they are filled with gas. The stomach has moderate gas within it. No other colonic loops significantly filled with stool and/or gas are identified separate from the transverse colon. No gross thumb printing this distended transverse colon is noted. BONES: Normal. OTHER FINDINGS: None. IMPRESSION: Persistent distended transverse colon as referenced above. Prior CT references findings of colitis. Correlate clinically with follow-up. The extent of this transverse colonic distension allowing for differences in technique are similar to the manager hospitality image from the CT 01/05/2018. The number of small bowel loops with mild-moderate gaseous filling is increased since the prior exam. Continued close follow-up is recommended to assess for any potential developing bowel obstruction or ileus findings.
--- NOTE | 2018-01-20 10:56 | RAD ---
Date of service: 01/19/2018 PROCEDURE: CHEST RADIOGRAPH, 1 VIEW HISTORY: R/O aspiration pneumonia COMPARISON: 01/04/2018 FINDINGS: LUNGS: Consolidation seen. Possible trace left infrahilar peribronchial thickening inflammatory changes. Endotracheal tube tip approximately 3 cm cephalad to the polly. PLEURA: No pneumothorax or pleural fluid seen. CARDIOVASCULAR: Normal. OSSEOUS STRUCTURES: No significant abnormalities. VISUALIZED UPPER ABDOMEN: There is suspect the subdiaphragmatic gas air present an interval change compared the prior study OTHER FINDINGS: None. IMPRESSION: Subdiaphragmatic air-viscus perforation needs to be considered. Prior to completing this dictation, the presence of subdiaphragmatic free air concerning for viscus perforation was called up to the nurse's station and discussed with the nurse Kaylan who is taking care the patient at 10:40 a.m. 01/20/2018. My extension for return call by the hospitalist was also provided
[2018-01-20] MEDS: Potassium Chloride 20 mEq ER Tab PO SCH ×2 (11:40→16:41)
--- NOTE | 2018-01-20 12:43 | RAD ---
Date of service: 01/20/2018 PROCEDURE: CHEST RADIOGRAPH, 1 VIEW HISTORY: intubated COMPARISON: Portable chest 01/20/2018. FINDINGS: LUNGS: Endotracheal and nasogastric tubes do not appear significantly changed in position. No acute airspace disease identified bilaterally. PLEURA: No pneumothorax or pleural fluid seen. CARDIOVASCULAR: Cardiomediastinal silhouette stable. No pulmonary vascular congestion. OSSEOUS STRUCTURES: No significant abnormalities. VISUALIZED UPPER ABDOMEN: Extensive free intra peritoneal gas identified in the abdomen once again with distended bowel loops identified relatively diffusely. OTHER FINDINGS: None. IMPRESSION: Stable chest radiograph with no acute pulmonary findings appreciable. Tubes and catheters unchanged in position. Extensive free intra peritoneal gas again identified in the visualized abdomen as well as distended bowel loops.
--- NOTE | 2018-01-20 13:32 | CP.CCUPN ---
CCU Subjective - Physician Review Subjective (Free Text): Sedated on Propofol and on vasopressor support with Levophed at 2.5mcg dose, eyes closed, at RASS neg 3, intermittently moves head to-and-fro from [id number], seemingly in a non-purposeful manner, but does not appear to be seizure activity nor myoclonic movements. He does not response to verbal commands. OGT in place and on LIS, draining light brownish fluid. Breathing 12 on AC 12. He did tolerate brief SBTs on low level CPAP PS. Other vitals and I/O's reviewed. Tmax 101F yesterday, now 99F, BP 85/50, HR 125 sinus, RR 20-21 ; approx. 450 ml urine output overnight. ROS: No other pertinent negs or positives on 10+ system review- unobtainable due to sedation PMSFH: All other Nursing and physician documentation reviewed to date; no new pertinent info noted relevant to current medical problems. EXAM- HEENT: no icterus, o gaze preference, Pupils 3 mm and reactive NECK: No JVD visible, supple, carotids equal upstroke bilat/no bruit CHEST: clear bilateral BS , no wheezes audible HEART: regular, distant, tachy S1S2, no rubs ABD: softly and nontender, no guardingo bruits, no organomegaly, BS hypoactive. EXT: no edema, no calf tenderness or palpable cords, distal pulses intact and symmetrical. L femoral vein TLC. NEURO: minimal tone, minor withdrawal of limbs to deep pain. SKIN: no rashes, warm and dry, vitiligineous lesions over mid-forehead LABS: WBC= 0.7 HGB= 8.2 PLTs= 22K Coags normal yesterday 7.51//193 Na= 148 K= 4.2 CL= 123 HCO3=18 BUN/Cr= 23/0.5 BS= 98 Lactate= 5.5 yesterday CXR: ETT position OK above polly, clear bilat lung ac, gastric air prominent with hyperlucent air under both HDs. (my interp) AXR from 01/19/18 reviewed: significant ileus / large bowel dilatation up to approx. 11 cm. Small bowel loops also dilated in RLQ area. No air-fluid level. (my interp) IMPRESSION / MAJOR PROBLEMS NOW: 1. Acute Resp Failure 2 AMS / Metabolic Encephalopathy 2. Pancytopenia 2 recent immunosuppressive therapy versus other Bone Marrow dysplastic disorder, Atypical Viral infection. 3. h/o UC, r/o occult bowel perforation, no evidence of GI bleeding. 4. Severe Sepsis, with Shock, and lactic acidosis: etiology r/o 2 #3 PLAN: 1. STAT CT AP ordered given CXR findings, clinical exam shows a benign abdomen so far. General Surgery eval. 2. More IV fluid challenges, follow serial Lactates. 3. Empiric abx coverage: consider Maxipime / Flagyl / Antifungal. 4. No MV weans for now pending further GI / Surgical evals. Hold enteral tube feeds for now. 5. Ongoing therapy with Filgrastim as per Hematology.
--- NOTE | 2018-01-20 13:57 | CP.PCM.PN ---
Subjective - Date & Time of Evaluation Date of Evaluation: 01/20/18 Time of Evaluation: 09:00 - Subjective Subjective: developed severe sepsis / shock- now intubated comatose in ICU Surgery on board for possible perforation no new positive cultures Objective - Vital Signs/Intake and Output Vital Signs (last 24 hours): Temp Pulse Resp BP Pulse Ox 99.7 F H 128 H 21 128/84 100 01/20/18 12:00 01/20/18 12:00 01/20/18 12:00 01/20/18 12:00 01/20/18 12:00 Intake and Output: 01/20/18 01/20/18 06:59 18:59 Intake Total 1357 900 Output Total 450 Balance 907 900 - Medications Medications: Current Medications Acetaminophen (Tylenol 650 Mg Supp) 650 mg NE ONCE PRN PRN Reason: Fever >100.4 F Last Admin: 01/19/18 00:47 Dose: 650 mg Dimethicone (Proshield Plus Skin Protectant) 1 applic TOP Q8 PRN PRN Reason: Excoriation Last Admin: 01/19/18 18:40 Dose: 1 applic Famotidine (Pepcid) 40 mg PO DAILY [facility] Last Admin: 01/20/18 08:44 Dose: 40 mg Metronidazole (Flagyl 500mg/100ml Ns) 100 mls @ 100 mls/hr IVPB Q8 [facility]; Protocol Last Admin: 01/20/18 08:37 Dose: 100 mls/hr Cefepime HCl 2 gm/ Sodium (Chloride) 100 mls @ 100 mls/hr IVPB Q8 [facility]; Protocol Last Admin: 01/20/18 08:38 Dose: 100 mls/hr Micafungin Sodium 100 mg/ (Sodium Chloride) 100 mls @ 100 mls/hr IVPB DAILY [facility]; Protocol Last Admin: 01/20/18 08:39 Dose: 100 mls/hr Propofol (Diprivan) 1,000 mg in 100 mls @ 16.874 mls/hr IV .Q5H56M [facility]; Protocol Stop: 01/20/18 21:50 Last Titration: 01/20/18 10:08 Dose: 20 mcg/kg/min, 8.437 mls/hr Oral Electrolytes (Kcl 40meq/ 0.9% 1l) 1,000 mls @ 100 mls/hr IV .Q10H [facility] Last Admin: 01/19/18 23:01 Dose: 100 mls/hr Acyclovir 500 mg/ Sodium (Chloride) 100 mls @ 100 mls/hr IV Q8@0200,1000,1800 [facility]; Protocol Last Admin: 01/20/18 11:38 Dose: 100 mls/hr Norepinephrine Bitartrate 4 mg (/ Dextrose) 254 mls @ 9.53 mls/hr IV .Q24H [facility]; Protocol Last Admin: 01/20/18 12:22 Dose: 2.5 mcg/min, 9.53 mls/hr Pantoprazole Sodium (Protonix Inj) 40 mg IVP DAILY [facility] Last Admin: 01/20/18 08:42 Dose: 40 mg Potassium Chloride (K-Dur 20 Meq Er Tab) 40 meq PO BID [facility] Last Admin: 01/20/18 11:40 Dose: Not Given Potassium Phos/Sodium Phos (Neutra-Phos) 1 pkt PO BID [facility] Last Admin: 01/19/18 18:40 Dose: Not Given - Labs Labs: 01/20/18 05:30 01/20/18 05:30 PT 19.0 Seconds (9.8-13.1) H 01/19/18 19:02 INR 1.7 01/19/18 19:02 APTT 35.9 Seconds (25.6-37.1) 01/19/18 19:02 - Constitutional Appears: Confused - Head Exam Head Exam: NORMOCEPHALIC - Eye Exam Eye Exam: absent: Scleral icterus - ENT Exam ENT Exam: Mucous Membranes Dry - Neck Exam Neck Exam: absent: Lymphadenopathy - Respiratory Exam Respiratory Exam: Decreased Breath Sounds - Cardiovascular Exam Cardiovascular Exam: REGULAR RHYTHM - GI/Abdominal Exam GI & Abdominal Exam: Distended, Hypoactive Bowel Sounds - Rectal Exam Rectal Exam: Deferred - Exam Exam: NORMAL INSPECTION - Extremities Exam Extremities Exam: Pedal Edema - Back Exam Back Exam: absent: CVA tenderness (L), CVA tenderness (R) - Neurological Exam Neurological Exam: Altered Assessment and Plan (1) Abdominal pain Status: Acute (2) Colitis Status: Acute (3) Pancytopenia Status: Acute (4) Sepsis Status: Acute - Assessment and Plan (Free Text) Assessment: developed severe sepsis / shock- now intubated comatose in ICU Surgery on board for possible perforation no new positive cultures Has severe pancytopenia secondary to possible MDS vs infection due to prolonged steroids for UC now with possible bowel perf and shock syndrome Prognosis from outset poor will cont IV rx add merrem / Vanco renally dosed cont antifungal rx and antiviral await CMV PCR possible transfer to [place] if / when stable
--- NOTE | 2018-01-20 15:10 | CT ---
Date of service: 01/20/2018 PROCEDURE: CT Abdomen and Pelvis without intravenous contrast HISTORY: r/o Free Air COMPARISON: Abdomen pelvis CT with contrast 01/05/2018. TECHNIQUE: Helical CT of the abdomen and pelvis was performed without oral or intravenous contrast as per referring physician request. Coronal and sagittal reformats were generated. Contrast dose: None Radiation dose: Total exam DLP = 882.86 mGy-cm. This CT exam was performed using one or more of the following dose reduction techniques: Automated exposure control, adjustment of the mA and/or kV according to patient size, and/or use of iterative reconstruction technique. FINDINGS: LOWER THORAX: Limited bibasilar dependent atelectasis is appreciated with linear atelectasis or fibrosis. Nasogastric tube is identified placed entering into the stomach coiled, terminating in the upper fundus. Cardiomegaly noted. No pleural or pericardial effusion. LIVER: Unremarkable. No gross lesion or ductal dilatation. GALLBLADDER AND BILE DUCTS: Moderately distended gallbladder is noted with questionable layering sludge but no definitive radiodense cholelithiasis. PANCREAS: Unremarkable. No gross lesion or ductal dilatation. SPLEEN: Unremarkable. ADRENALS: Unremarkable. No mass. KIDNEYS AND URETERS: Unremarkable. No hydronephrosis. No solid mass. VASCULATURE: Normal caliber abdominal aorta. Left common femoral central venous line terminates at the left common iliac vein region. BOWEL: Gas moderately distends the stomach though nasogastric tube is in situ. In prior CT 01/05/2018, small bowel loops appear largely collapsed on a diffuse basis. Mid small bowel loops appear somewhat dilated with air and fluid although proximal and distal segments are more collapsed appearing. The transverse colon is markedly distended once again though measuring 9.9 cm greatest perpendicular diameter compared to approximately 11.0 cm on 11/26/1917. prior abdomen KUB performed 01/19/2018 exhibits diameter of 12.5 cm. Further, this segment of bowel is featureless which is compatible the patient's known history of ulcerative colitis. Pericolic reactive changes are seen at the mid mid to distal ascending colon as well as the distal descending and proximal to mid sigmoid colon with limited, trace free air associated. Perforation may have come from either or both of these sites as well as the transverse colon. Exact location of origin of voluminus intra peritoneal gas is unclear. Given clinical history of ulcerative colitis, the entire colon may be inflamed though no pericolic reaction is seen directly associated with the transverse colon. APPENDIX: Unremarkable. Normal appendix. PERITONEUM: Please see bowel section above. LYMPH NODES: Unremarkable. No enlarged lymph nodes. BLADDER: Reyes catheter decompression the urinary bladder is identified. Mural thickening is not excluded nevertheless. Clinically correlate. REPRODUCTIVE: Unremarkable. BONES: No acute fracture. OTHER FINDINGS: None. IMPRESSION: 1. Extensive free intra peritoneal gas identified with ascending and mid to distal descending and sigmoid colonic segmental colitis pattern. Marked dilatation of the transverse colon is reiterated but without distinct pericolic reaction. In the setting of ulcerative colitis, consider potential pancolitis despite lack of transverse colonic pericolic reaction. Multifocal segmental colitis is the secondary possible diagnosis though this is not favored given clinical history. Perforated large-bowel is possible particularly at the ascending and descending colon inflamed segments where trace free intrarenal gas is associated though transverse colon segment may also be a source of perforation. Is difficult to determine a specific site given the large volume of free air. 2. Other lesser findings discussed above. Findings discussed with Dr. Vance with written down read back verification 01/20/2018, 2:55 p.m..
--- NOTE | 2018-01-20 15:38 | CP.PCM.CON ---
Addendum entered and electronically signed by Eagle Cantor DO 01/20/18 20:59: Insufficient platelets available to safely proceed with operation. Pt at high risk of exsanguination during operative / corrine-operative period. Several calls made to blood centers with no avail due to platelet shortage. Calls have been placed to [facility] for attempted transfer, no beds currently available. Calls made to [facility] and [facility] for possible transfer, awaiting call back. Case discussed with family, family aware that pt condition is critical with high chance of mortality. Case was discussed in detail with Dr. Julianna Cantor PGY4 Original Note: History of Present Illness - History of Present Illness History of Present Illness: Surgery: Dr. Levine CC: Free Air HPI: Pt intubated/obtunded, hx gathered from review of chart. 57M w. hx of UC presented to ED on 01/04 where he was admitted for abd pain, fever, and pancytopenia. Per chart, prior to admission, pt had spent 2 months at [facility] for UC flare and was D/C on prednisone and mesalamine. Upon D/C pt began to have worsening abd pain which he attributed to mesalamine, which he stopped taking. During hospital stay, pts pancytopenia became more profound and he began to experience AMS. On 01/19 [facility] [employer] was called for pt being obtunded. He was transferred to ICU and intubated. CXR/CT showed free air in abd for which surgery was consulted. PMH: UC PSH: none Meds: MAR reviewed NKDA Social: no ETOH/tobacco/drugs Fhx: Non-contributory Review of Systems - Review of Systems Systems not reviewed;Unavailable: Acuity of Condition Past Patient History - Past Medical History & Family History Past Medical History?: Yes - Past Social History Smoking Status: Never Smoked - CARDIAC Hx Cardiac Disorders: No - PULMONARY Hx Respiratory Disorders: No - NEUROLOGICAL Hx Neurological Disorder: No - HEENT Hx HEENT Problems: No - RENAL Hx Chronic Kidney Disease: No - ENDOCRINE/METABOLIC Hx Endocrine Disorders: No - HEMATOLOGICAL/ONCOLOGICAL Hx Blood Disorders: No - INTEGUMENTARY Hx Dermatological Problems: No - MUSCULOSKELETAL/RHEUMATOLOGICAL Hx Musculoskeletal Disorders: No Hx Falls: No - GASTROINTESTINAL Hx Gastrointestinal Disorders: Yes Hx Colitis: Yes - GENITOURINARY/GYNECOLOGICAL Hx Genitourinary Disorders: No - PSYCHIATRIC Hx Psychophysiologic Disorder: No Hx Substance Use: No - SURGICAL HISTORY Hx Surgeries: No - ANESTHESIA Hx Anesthesia: No Hx Anesthesia Reactions: No Hx Malignant Hyperthermia: No Has any member of the family had a problem w/ anesthesia?: No Meds Allergies/Adverse Reactions: Allergies Allergy/AdvReac Type Severity Reaction Status Date / Time No Known Allergies Allergy Verified 01/04/18 21:19 - Medications Medications: Current Medications Acetaminophen (Tylenol 650 Mg Supp) 650 mg [place] ONCE PRN PRN Reason: Fever >100.4 F Last Admin: 01/19/18 00:47 Dose: 650 mg Dimethicone (Proshield Plus Skin Protectant) 1 applic TOP Q8 PRN PRN Reason: Excoriation Last Admin: 01/19/18 18:40 Dose: 1 applic Metronidazole (Flagyl 500mg/100ml Ns) 100 mls @ 100 mls/hr IVPB Q8 [facility]; Protocol Last Admin: 01/20/18 08:37 Dose: 100 mls/hr Micafungin Sodium 100 mg/ (Sodium Chloride) 100 mls @ 100 mls/hr IVPB DAILY [facility]; Protocol Last Admin: 01/20/18 08:39 Dose: 100 mls/hr Propofol (Diprivan) 1,000 mg in 100 mls @ 16.874 mls/hr IV .Q5H56M [facility]; Protocol Stop: 01/20/18 21:50 Last Admin: 01/20/18 13:08 Dose: 20 mcg/kg/min, 8.437 mls/hr Oral Electrolytes (Kcl 40meq/ 0.9% 1l) 1,000 mls @ 100 mls/hr IV .Q10H [facility] Last Admin: 01/19/18 23:01 Dose: 100 mls/hr Acyclovir 500 mg/ Sodium (Chloride) 100 mls @ 100 mls/hr IV Q8@0200,1000,1800 [facility]; Protocol Last Admin: 01/20/18 11:38 Dose: 100 mls/hr Norepinephrine Bitartrate 4 mg (/ Dextrose) 254 mls @ 9.53 mls/hr IV .Q24H [facility]; Protocol Last Admin: 01/20/18 12:22 Dose: 2.5 mcg/min, 9.53 mls/hr Meropenem 1 gm/ Sodium (Chloride) 100 mls @ 100 mls/hr IVPB Q8 [facility]; Protocol Vancomycin HCl 1 gm/ Sodium (Chloride) 250 mls @ 250 mls/hr IVPB Q12H [facility]; Protocol Pantoprazole Sodium (Protonix Inj) 40 mg IVP DAILY [facility] Last Admin: 01/20/18 08:42 Dose: 40 mg Potassium Chloride (K-Dur 20 Meq Er Tab) 40 meq PO BID [facility] Last Admin: 01/20/18 11:40 Dose: Not Given Potassium Phos/Sodium Phos (Neutra-Phos) 1 pkt PO BID [facility] Last Admin: 01/20/18 14:25 Dose: Not Given Physical Exam - Constitutional Appears: Other (obtunded) - Head Exam Head Exam: ATRAUMATIC, NORMOCEPHALIC - ENT Exam ENT Exam: Mucous Membranes Dry, Normal External Ear Exam - Respiratory Exam Additional comments: Intubated - Cardiovascular Exam Cardiovascular Exam: Tachycardia - GI/Abdominal Exam GI & Abdominal Exam: Soft. absent: Distended, Firm, Guarding, Rebound, Rigid, Tenderness - Extremities Exam Extremities exam: Negative for: calf tenderness, pedal edema Results - Vital Signs Recent Vital Signs: Last Vital Signs Temp 99.7 F H 01/20/18 12:00 Pulse 128 H 01/20/18 12:00 Resp 21 01/20/18 12:00 BP 128/84 01/20/18 12:00 Pulse Ox 100 01/20/18 12:00 - Labs Result Diagrams: 01/20/18 05:30 01/20/18 05:30 Labs: Laboratory Results - last 24 hr 01/18/18 01/19/18 01/19/18 08:09 13:06 18:14 WBC RBC Hgb Hct MCV MCH MCHC RDW Plt Count MPV Neut % (Auto) Lymph % (Auto) Kidder % (Auto) Eos % (Auto) Baso % (Auto) Neut # (Auto) Lymph # (Auto) Kidder # (Auto) Eos # (Auto) Baso # (Auto) Total Counted Neutrophils % (Manual) Band Neutrophils % Lymphocytes % (Manual) Reactive Lymphs % Monocytes % (Manual) Eosinophils % (Manual) Basophils % (Manual) Metamyelocytes % Myelocytes % Promyelocytes % Blast Cells % Plasma Cell % (Manual) Nucleated RBC % Hypersegmented Polys Smudge Cells Toxic Granulation Dohle Bodies Vianca Rods Platelet Estimate Plt Clumps, EDTA Large Platelets Giant Platelets RBC Morphology Polychromasia Hypochromasia (manual) Poikilocytosis (manual Basophilic Stippling Anisocytosis (manual) Microcytosis (manual) Macrocytosis (manual) Spherocytes Sickle Cells Target Cells Tear Drop Cells Ovalocytes Stomatocytes Helmet Cells [place] Bodies [place] Cells Acanthocytes (Spur) Rouleaux Schistocytes PT INR APTT pCO2 pO2 38 HCO3 ABG pH ABG Total CO2 ABG O2 Saturation ABG O2 Content ABG Base Excess ABG Hemoglobin ABG Carboxyhemoglobin POC ABG HHb (Measured) ABG Methemoglobin ABG O2 Capacity Yousuf Test VBG pH 7.46 H VBG pCO2 27 L VBG HCO3 21.8 VBG Total CO2 20.0 L VBG O2 Sat (Calc) 82.4 H VBG Base Excess -3.2 L VBG Potassium 4.0 A-a O2 Difference 128.0 Hgb O2 Saturation Sodium 148.0 Chloride 121.0 H Glucose 89 Lactate 5.5 H* Vent Mode Mechanical Rate FiO2 28.0 Tidal Volume PEEP Blood Gas Comments Lactate =5.5 Crit Value Called To ezio Kendrick Crit Value Called By 22 Crit Value Read Back Y Blood Gas Notified Time 182 Potassium Carbon Dioxide Anion Gap BUN Creatinine Est GFR ( Amer) Est GFR (Non-Af Amer) POC Glucose (mg/dL) 102 Random Glucose Lactic Acid Calcium Phosphorus Magnesium Total Bilirubin AST ALT Alkaline Phosphatase Ammonia Total Protein Albumin Globulin Albumin/Globulin Ratio Venous Blood Potassium 4.0 Cryptococcus Ag Screen Not detected 01/19/18 01/19/18 01/19/18 19:02 19:02 19:02 WBC 0.5 L* RBC 3.04 L Hgb 9.0 L Hct 26.5 L MCV 87.1 MCH 29.5 MCHC 33.9 RDW 15.7 H Plt Count 8 L* MPV 10.5 Neut % (Auto) 11.4 L Lymph % (Auto) 65.2 H Kidder % (Auto) 22.8 H Eos % (Auto) 0.6 Baso % (Auto) 0.0 Neut # (Auto) 0.1 L Lymph # (Auto) 0.3 L Kidder # (Auto) 0.1 Eos # (Auto) 0.0 Baso # (Auto) 0.0 Total Counted Cancelled Neutrophils % (Manual) Cancelled Band Neutrophils % Cancelled Lymphocytes % (Manual) Cancelled Reactive Lymphs % Cancelled Monocytes % (Manual) Cancelled Eosinophils % (Manual) Cancelled Basophils % (Manual) Cancelled Metamyelocytes % Cancelled Myelocytes % Cancelled Promyelocytes % Cancelled Blast Cells % Cancelled Plasma Cell % (Manual) Cancelled Nucleated RBC % Cancelled Hypersegmented Polys Cancelled Smudge Cells Cancelled Toxic Granulation Cancelled Dohle Bodies Cancelled Vianca Rods Cancelled Platelet Estimate Cancelled Plt Clumps, EDTA Cancelled Large Platelets Cancelled Giant Platelets Cancelled RBC Morphology Cancelled Polychromasia Cancelled Hypochromasia (manual) Cancelled Poikilocytosis (manual Cancelled Basophilic Stippling Cancelled Anisocytosis (manual) Cancelled Microcytosis (manual) Cancelled Macrocytosis (manual) Cancelled Spherocytes Cancelled Sickle Cells Cancelled Target Cells Cancelled Tear Drop Cells Cancelled Ovalocytes Cancelled Stomatocytes Cancelled Helmet Cells Cancelled [place] Bodies Cancelled Joel Cells Cancelled Acanthocytes (Spur) Cancelled Rouleaux Cancelled Schistocytes Cancelled PT INR APTT pCO2 pO2 HCO3 ABG pH ABG Total CO2 ABG O2 Saturation ABG O2 Content ABG Base Excess ABG Hemoglobin ABG Carboxyhemoglobin POC ABG HHb (Measured) ABG Methemoglobin ABG O2 Capacity Yousuf Test VBG pH VBG pCO2 VBG HCO3 VBG Total CO2 VBG O2 Sat (Calc) VBG Base Excess VBG Potassium A-a O2 Difference Hgb O2 Saturation Sodium Chloride Glucose Lactate Vent Mode Mechanical Rate FiO2 Tidal Volume PEEP Blood Gas Comments Crit Value Called To Crit Value Called By Crit Value Read Back Blood Gas Notified Time Potassium Carbon Dioxide Anion Gap BUN Creatinine Est GFR ( Amer) Est GFR (Non-Af Amer) POC Glucose (mg/dL) Random Glucose Lactic Acid 5.4 H* Calcium Phosphorus Magnesium Total Bilirubin AST ALT Alkaline Phosphatase Ammonia < 9 L Total Protein Albumin Globulin Albumin/Globulin Ratio Venous Blood Potassium Cryptococcus Ag Screen 01/19/18 01/19/18 01/19/18 19:02 19:02 23:56 WBC RBC Hgb Hct MCV MCH MCHC RDW Plt Count MPV Neut % (Auto) Lymph % (Auto) Kidder % (Auto) Eos % (Auto) Baso % (Auto) Neut # (Auto) Lymph # (Auto) Kidder # (Auto) Eos # (Auto) Baso # (Auto) Total Counted Neutrophils % (Manual) Band Neutrophils % Lymphocytes % (Manual) Reactive Lymphs % Monocytes % (Manual) Eosinophils % (Manual) Basophils % (Manual) Metamyelocytes % Myelocytes % Promyelocytes % Blast Cells % Plasma Cell % (Manual) Nucleated RBC % Hypersegmented Polys Smudge Cells Toxic Granulation Dohle Bodies Vianca Rods Platelet Estimate Plt Clumps, EDTA Large Platelets Giant Platelets RBC Morphology Polychromasia Hypochromasia (manual) Poikilocytosis (manual Basophilic Stippling Anisocytosis (manual) Microcytosis (manual) Macrocytosis (manual) Spherocytes Sickle Cells Target Cells Tear Drop Cells Ovalocytes Stomatocytes Helmet Cells [place] Bodies Joel Cells Acanthocytes (Spur) Rouleaux Schistocytes PT 19.0 H INR 1.7 APTT 35.9 pCO2 22 L pO2 190 H HCO3 21.1 ABG pH 7.50 H ABG Total CO2 17.9 L ABG O2 Saturation 100.5 H ABG O2 Content 12.1 L ABG Base Excess -5.0 L ABG Hemoglobin 8.4 L ABG Carboxyhemoglobin 1.2 POC ABG HHb (Measured) -0.5 L ABG Methemoglobin 0.9 ABG O2 Capacity 12.0 L Yousuf Test Yes VBG pH VBG pCO2 VBG HCO3 VBG Total CO2 VBG O2 Sat (Calc) VBG Base Excess VBG Potassium A-a O2 Difference 68.0 Hgb O2 Saturation 98.5 H Sodium 147 Chloride 122 H Glucose Lactate Vent Mode A/c Mechanical Rate 12 FiO2 40.0 Tidal Volume 500 PEEP 5 Blood Gas Comments Crit Value Called To Crit Value Called By Crit Value Read Back Blood Gas Notified Time Potassium 4.0 Carbon Dioxide 18 L Anion Gap 11 BUN 17 Creatinine 0.4 L Est GFR ( Amer) > 60 Est GFR (Non-Af Amer) > 60 POC Glucose (mg/dL) Random Glucose 91 Lactic Acid Calcium 7.4 L Phosphorus 2.2 L Magnesium 2.1 Total Bilirubin 0.9 AST 17 ALT 14 L Alkaline Phosphatase 84 Ammonia Total Protein 5.0 L Albumin 1.9 L Globulin 3.0 Albumin/Globulin Ratio 0.6 L Venous Blood Potassium Cryptococcus Ag Screen 01/20/18 01/20/18 01/20/18 05:12 05:30 05:30 WBC 0.7 L* RBC 2.76 L Hgb 8.2 L Hct 24.2 L MCV 87.6 MCH 29.6 MCHC 33.8 RDW 16.1 H Plt Count 22 L* D MPV Neut % (Auto) Lymph % (Auto) Kidder % (Auto) Eos % (Auto) Baso % (Auto) Neut # (Auto) Lymph # (Auto) Kidder # (Auto) Eos # (Auto) Baso # (Auto) Total Counted Neutrophils % (Manual) Band Neutrophils % Lymphocytes % (Manual) Reactive Lymphs % Monocytes % (Manual) Eosinophils % (Manual) Basophils % (Manual) Metamyelocytes % Myelocytes % Promyelocytes % Blast Cells % Plasma Cell % (Manual) Nucleated RBC % Hypersegmented Polys Smudge Cells Toxic Granulation Dohle Bodies Vianca Rods Platelet Estimate Plt Clumps, EDTA Large Platelets Giant Platelets RBC Morphology Polychromasia Hypochromasia (manual) Poikilocytosis (manual Basophilic Stippling Anisocytosis (manual) Microcytosis (manual) Macrocytosis (manual) Spherocytes Sickle Cells Target Cells Tear Drop Cells Ovalocytes Stomatocytes Helmet Cells [place] Bodies [place] Cells Acanthocytes (Spur) Rouleaux Schistocytes PT INR APTT pCO2 22 L pO2 193 H HCO3 21.5 ABG pH 7.51 H ABG Total CO2 18.3 L ABG O2 Saturation 100.9 H ABG O2 Content 12.0 L ABG Base Excess -4.5 L ABG Hemoglobin 8.3 L ABG Carboxyhemoglobin 1.3 POC ABG HHb (Measured) -0.9 L ABG Methemoglobin 0.9 ABG O2 Capacity 11.9 L Yousuf Test Yes VBG pH VBG pCO2 VBG HCO3 VBG Total CO2 VBG O2 Sat (Calc) VBG Base Excess VBG Potassium A-a O2 Difference 65.0 Hgb O2 Saturation 98.7 H Sodium 148 Chloride 123 H Glucose Lactate Vent Mode A/c Mechanical Rate 12 FiO2 40.0 Tidal Volume 500 PEEP 5 Blood Gas Comments Crit Value Called To Crit Value Called By Crit Value Read Back Blood Gas Notified Time Potassium 4.2 Carbon Dioxide 18 L Anion Gap 11 BUN 23 H Creatinine 0.5 L Est GFR ( Amer) > 60 Est GFR (Non-Af Amer) > 60 POC Glucose (mg/dL) Random Glucose 98 Lactic Acid Calcium 7.2 L Phosphorus Magnesium Total Bilirubin AST ALT Alkaline Phosphatase Ammonia Total Protein Albumin Globulin Albumin/Globulin Ratio Venous Blood Potassium Cryptococcus Ag Screen - Imaging and Cardiology CT scan - abdomen Status: Image reviewed by me, Report reviewed by me Chest x-ray Status: Image reviewed by me, Report reviewed by me Assessment & Plan - Assessment and Plan (Free Text) Assessment: 57M w. sepsis/free air 2/2 toxic colitis/UC flare -OR tonight once optimized for subtotal colectomy with end ileostomy, consent in chart, risks benefits d/w spouse -Aggressive IVF resuscitation -NPO -NGT to sxn -2U Plts now, 2U OCTOR -1U FFP now -Follow up repeat labs -Strict Is:Os -d/w attending Devaughn PGY4
[2018-01-20 16:42] LABS: VENOUS BLOOD GAS BASE EXCESS -7.1 mmol/L (0.0-2.0); VENOUS BLOOD GAS PCO2 28 mmHg (40-60); VENOUS BLOOD GAS PO2 56 mm/Hg (30-55); VENOUS BLOOD PH 7.38 (7.32-7.43)
[2018-01-20] MEDS: Meropenem 1 GM in Sodium Chloride 0.9% 100 ML IVPB SCH (16:42)
[2018-01-20 16:49] LABS: HEMOGLOBIN 7.4 g/dL (12.0-18.0); MEAN CELL VOLUME 88.3 fl (80.0-94.0); MEAN CORPUSCULAR HEMOGLOBIN 29.1 pg (27.0-31.0); MEAN CORPUSCULAR HGB CONC 32.9 g/dL (33.0-37.0); RBC 2.56 Mil/uL (4.40-5.90)
[2018-01-20 17:02] LABS: WHITE BLOOD COUNT 0.5 K/uL (4.8-10.8)
[2018-01-20 17:03] LABS: INR 1.6; PROTHROMBIN TIME 18.1 Seconds (9.8-13.1)
[2018-01-20 17:06] LABS: PARTIAL THROMBOPLASTIN TIME 28.6 Seconds (25.6-37.1)
[2018-01-20 17:18] LABS: ALB/GLOB RATIO 0.6 (1.0-2.1); ALBUMIN 1.8 g/dL (3.5-5.0); ALT/SGPT 18 U/L (21-72); AST/SGOT 16 U/L (17-59); BLOOD UREA NITROGEN 20 mg/dl (9-20); CALCIUM 6.8 mg/dL (8.4-10.2); GFR NON-AFRICAN AMERICAN > 60
[2018-01-20] MEDS: Lactated Ringer's 1,000 ML IV SCH (17:18)
[2018-01-20] MEDS: Proshield Plus GEL TOP PRN (17:42)
--- NOTE | 2018-01-20 17:51 | CP.PCM.PN ---
Subjective - Date & Time of Evaluation Date of Evaluation: 01/20/18 Time of Evaluation: 11:10 - Subjective Subjective: Patient seen and examined this morning. Events noted, patient was intubated last night due to AMS. Abdominal xray and a/p CT shows free air and surgery was consulted. Objective - Vital Signs/Intake and Output Vital Signs (last 24 hours): Temp Pulse Resp BP Pulse Ox 99.1 F 109 H 21 142/89 100 01/20/18 16:00 01/20/18 16:00 01/20/18 16:00 01/20/18 16:00 01/20/18 16:00 Intake and Output: 01/20/18 01/20/18 06:59 18:59 Intake Total 1357 4555 Output Total 450 575 Balance 907 3980 - Medications Medications: Current Medications Acetaminophen (Tylenol 650 Mg Supp) 650 mg [place] ONCE PRN PRN Reason: Fever >100.4 F Last Admin: 01/19/18 00:47 Dose: 650 mg Dimethicone (Proshield Plus Skin Protectant) 1 applic TOP Q8 PRN PRN Reason: Excoriation Last Admin: 01/20/18 17:42 Dose: 1 applic Metronidazole (Flagyl 500mg/100ml Ns) 100 mls @ 100 mls/hr IVPB Q8 [facility]; Protocol Last Admin: 01/20/18 16:41 Dose: 100 mls/hr Micafungin Sodium 100 mg/ (Sodium Chloride) 100 mls @ 100 mls/hr IVPB DAILY [facility]; Protocol Last Admin: 01/20/18 08:39 Dose: 100 mls/hr Propofol (Diprivan) 1,000 mg in 100 mls @ 16.874 mls/hr IV .Q5H56M [facility]; Protocol Stop: 01/20/18 21:50 Last Admin: 01/20/18 13:08 Dose: 20 mcg/kg/min, 8.437 mls/hr Acyclovir 500 mg/ Sodium (Chloride) 100 mls @ 100 mls/hr IV Q8@0200,1000,1800 [facility]; Protocol Last Admin: 01/20/18 17:43 Dose: 100 mls/hr Norepinephrine Bitartrate 4 mg (/ Dextrose) 254 mls @ 9.53 mls/hr IV .Q24H [facility]; Protocol Last Admin: 01/20/18 12:22 Dose: 2.5 mcg/min, 9.53 mls/hr Meropenem 1 gm/ Sodium (Chloride) 100 mls @ 100 mls/hr IVPB Q8 [facility]; Protocol Last Admin: 01/20/18 16:42 Dose: 100 mls/hr Vancomycin HCl 1 gm/ Sodium (Chloride) 250 mls @ 250 mls/hr IVPB Q12H [facility]; Protocol Last Admin: 01/20/18 16:53 Dose: 250 mls/hr Lactated Ringer's (Lactated Ringer's) 1,000 mls @ 175 mls/hr IV .Q5H43M [facility] Last Admin: 01/20/18 17:18 Dose: 175 mls/hr Pantoprazole Sodium (Protonix Inj) 40 mg IVP DAILY [facility] Last Admin: 01/20/18 08:42 Dose: 40 mg - Labs Labs: 01/20/18 16:38 01/20/18 16:38 PT 18.1 Seconds (9.8-13.1) H 01/20/18 16:38 INR 1.6 01/20/18 16:38 APTT 28.6 Seconds (25.6-37.1) 01/20/18 16:38 - Constitutional Appears: Confused, Other (s/p intubation) - Head Exam Head Exam: NORMOCEPHALIC - ENT Exam ENT Exam: Mucous Membranes Dry - Respiratory Exam Respiratory Exam: Decreased Breath Sounds - Cardiovascular Exam Cardiovascular Exam: Tachycardia, +S1, +S2 - GI/Abdominal Exam GI & Abdominal Exam: Soft, Hypoactive Bowel Sounds - Neurological Exam Neurological Exam: Altered - Skin Additional comments: ecchymosis on arms Assessment and Plan - Assessment and Plan (Free Text) Assessment: Assessment: 57 y/o male with pmhx of UC presents with abdominal pain and bloody BM's, found to have colitis and pancytopenia s/p BM biopsy. Receiving empiric antibiotics for neutropenic fever and IV Copper for Copper deficiency. s/p intubated yesterday. Has has free air on abdomen likely secondary to toxic colitis/UC flare. Plan: -Surgery on board. Possible OR tonight. -Worsening Pancytopenia s/p Granix and platelet infusion. -Bone Marrow Biopsy (final report): Bone marrow biopsy show low for the age cellularity. Trilineage hemotopoiesis. Megakaryocytes are seen. Flow cytometry analysis shows immunophenotypic evidence of left shifted myeloid maturation and <1% myeloblasts. No immunophenotypic evidence of lymphoproliferative disorder. No metastatic malignancy seen. Stainable iron is seen mostly in kupffer cells. Reticulin stain is not increased. -ID Consulted, Empiric ABX, antifungal and antiviral tx. Discussed case with Dr. Aubree Samuels, pgy-2
--- NOTE | 2018-01-20 21:51 | CP.PCM.PCO ---
Physician Communication Note - Physician Communication Note Physician Communication Note: [facility] has refused to accept patient transfer request
--- NOTE | 2018-01-20 22:54 | CP.PCM.PN ---
Subjective - Date & Time of Evaluation Date of Evaluation: 01/20/18 Time of Evaluation: 12:00 - Subjective Subjective: lethargic, transferred to ICU s/p central line placement with platelet transfusion Objective - Vital Signs/Intake and Output Vital Signs (last 24 hours): Temp Pulse Resp BP Pulse Ox 99.9 F H 115 H 15 113/65 99 01/20/18 21:33 01/20/18 21:33 01/20/18 21:33 01/20/18 21:33 01/20/18 20:00 Intake and Output: 01/20/18 01/21/18 18:59 06:59 Intake Total 4559 1441 Output Total 575 Balance 3984 1441 - Medications Medications: Current Medications Acetaminophen (Tylenol 650 Mg Supp) 650 mg [place] ONCE PRN PRN Reason: Fever >100.4 F Last Admin: 01/20/18 21:21 Dose: 650 mg Dimethicone (Proshield Plus Skin Protectant) 1 applic TOP Q8 PRN PRN Reason: Excoriation Last Admin: 01/20/18 17:42 Dose: 1 applic Metronidazole (Flagyl 500mg/100ml Ns) 100 mls @ 100 mls/hr IVPB Q8 [facility]; Protocol Last Admin: 01/20/18 16:41 Dose: 100 mls/hr Micafungin Sodium 100 mg/ (Sodium Chloride) 100 mls @ 100 mls/hr IVPB DAILY [facility]; Protocol Last Admin: 01/20/18 08:39 Dose: 100 mls/hr Acyclovir 500 mg/ Sodium (Chloride) 100 mls @ 100 mls/hr IV Q8@0200,1000,1800 [facility]; Protocol Last Admin: 01/20/18 17:43 Dose: 100 mls/hr Norepinephrine Bitartrate 4 mg (/ Dextrose) 254 mls @ 9.53 mls/hr IV .Q24H [facility]; Protocol Last Titration: 01/20/18 22:09 Dose: 0 mcg/min, 0 mls/hr Meropenem 1 gm/ Sodium (Chloride) 100 mls @ 100 mls/hr IVPB Q8 [facility]; Protocol Last Admin: 01/20/18 16:42 Dose: 100 mls/hr Vancomycin HCl 1 gm/ Sodium (Chloride) 250 mls @ 250 mls/hr IVPB Q12H [facility]; Protocol Last Admin: 01/20/18 16:53 Dose: 250 mls/hr Lactated Ringer's (Lactated Ringer's) 1,000 mls @ 175 mls/hr IV .Q5H43M [facility] Last Admin: 01/20/18 17:18 Dose: 175 mls/hr Pantoprazole Sodium (Protonix Inj) 40 mg IVP DAILY [facility] Last Admin: 01/20/18 08:42 Dose: 40 mg - Labs Labs: 01/20/18 16:38 01/20/18 16:38 PT 18.1 Seconds (9.8-13.1) H 01/20/18 16:38 INR 1.6 01/20/18 16:38 APTT 28.6 Seconds (25.6-37.1) 01/20/18 16:38 - Head Exam Head Exam: ATRAUMATIC - Eye Exam Eye Exam: Normal appearance - ENT Exam ENT Exam: Mucous Membranes Dry - Respiratory Exam Respiratory Exam: NORMAL BREATHING PATTERN - Cardiovascular Exam Cardiovascular Exam: +S1, +S2 - GI/Abdominal Exam GI & Abdominal Exam: Hyperactive Bowel Sounds Assessment and Plan (1) Pancytopenia Assessment & Plan: no malignancy noted in bone marrow awaiting cytogenetics to rule out MDS hypocellular marrow ? nutritional deficiency - noted low copper on supplementation other possibilities would include infectious etiology in bone marrow given chronic immunosuppression from UC treatment ? CMV ? parvo ?EBV Granix for severe neutropenia transfusion support Status: Acute
[2018-01-21] MEDS: Lactated Ringer's 1,000 ML IV SCH (00:19)
[2018-01-21] MEDS: Acyclovir 500 MG in Sodium Chloride 0.9% 100 ML IV SCH ×2 (01:31→12:15)
[2018-01-21] MEDS: metroNIDAZOLE 500mg/100ml NS 100 ML IVPB SCH ×2 (01:33→09:49)
[2018-01-21] MEDS: Proshield Plus GEL TOP PRN (01:34)
[2018-01-21] MEDS: Meropenem 1 GM in Sodium Chloride 0.9% 100 ML IVPB SCH ×2 (02:11→08:46)
[2018-01-21] MEDS: Propofol 10 mg/ml 1,000 MG/100 ML VIAL IV SCH (02:17)
[2018-01-21 05:28] LABS: ABG ALLEN TEST YES; ARTERIAL BLOOD GAS HEMOGLOBIN 9.1 g/dL (11.7-17.4); ARTERIAL BLOOD GAS O2 CAPACITY 12.7 mL/dL (16-24); ARTERIAL BLOOD GAS O2 CONTENT 12.7 ML/dL (15-23); ARTERIAL BLOOD GAS O2 SAT 100.1 % (95-98); ARTERIAL BLOOD GAS PCO2 44 mm/Hg (35-45); ARTERIAL BLOOD GAS PH 7.27 (7.35-7.45); ARTERIAL BLOOD GAS PO2 128 mm/Hg (80-100); ARTERIAL BLOOD GAS TCO2 21.6 mmol/L (22-28)
[2018-01-21 05:59] LABS: ALB/GLOB RATIO 0.7 (1.0-2.1); ALT/SGPT 24 U/L (21-72); AST/SGOT 22 U/L (17-59); BLOOD UREA NITROGEN 15 mg/dl (9-20); CALCIUM 6.8 mg/dL (8.4-10.2); GFR NON-AFRICAN AMERICAN > 60
[2018-01-21 06:00] LABS: EOS % 5.2 % (0.0-4.0); LYMPH # 0.3 K/uL (1.0-4.3); LYMPH % 49.6 % (20.0-40.0); MEAN CELL VOLUME 87.4 fl (80.0-94.0); MEAN CORPUSCULAR HGB CONC 33.2 g/dL (33.0-37.0); MONO % 1.1 % (0.0-10.0); NEUT # 0.3 K/uL (1.8-7.0); NEUT % 44.1 % (50.0-75.0); NRBC % 6.9 % (0.0-0.0); RBC 2.75 Mil/uL (4.40-5.90); RED CELL DISTRIBUTION WIDTH 17.1 % (11.5-14.5)
[2018-01-21 06:01] LABS: WHITE BLOOD COUNT 0.6 K/uL (4.8-10.8)
[2018-01-21] MEDS ORDERED: Lactated Ringer's 1,000 ML IV SCH (06:54)
[2018-01-21] MEDS ORDERED: Dextrose 5%/Lactated Ringer's 1,000 ML IV SCH (07:15)
--- NOTE | 2018-01-21 08:01 | CP.PCM.PN ---
Subjective - Date & Time of Evaluation Date of Evaluation: 01/21/18 Time of Evaluation: 07:59 - Subjective Subjective: Surgery: Dr. Levine Pt seen and examined. Remains intubated/unresponsive, on levo. S/P 2U PRBCs and 2U Plts overnight. Objective - Vital Signs/Intake and Output Vital Signs (last 24 hours): Temp Pulse Resp BP Pulse Ox 99.7 F H 109 H 14 94/54 L 97 01/21/18 07:05 01/21/18 07:05 01/21/18 07:05 01/21/18 07:05 01/21/18 06:00 Intake and Output: 01/21/18 01/21/18 06:59 18:59 Intake Total 5654 10 Output Total 1450 Balance 4204 10 - Medications Medications: Current Medications Acetaminophen (Tylenol 650 Mg Supp) 650 mg CA ONCE PRN PRN Reason: Fever >100.4 F Last Admin: 01/20/18 21:21 Dose: 650 mg Dimethicone (Proshield Plus Skin Protectant) 1 applic TOP Q8 PRN PRN Reason: Excoriation Last Admin: 01/21/18 01:34 Dose: 1 applic Metronidazole (Flagyl 500mg/100ml Ns) 100 mls @ 100 mls/hr IVPB Q8 [facility]; Protocol Last Admin: 01/21/18 01:33 Dose: 100 mls/hr Micafungin Sodium 100 mg/ (Sodium Chloride) 100 mls @ 100 mls/hr IVPB DAILY [facility]; Protocol Last Admin: 01/20/18 08:39 Dose: 100 mls/hr Acyclovir 500 mg/ Sodium (Chloride) 100 mls @ 100 mls/hr IV Q8@0200,1000,1800 [facility]; Protocol Last Admin: 01/21/18 01:31 Dose: 100 mls/hr Meropenem 1 gm/ Sodium (Chloride) 100 mls @ 100 mls/hr IVPB Q8 [facility]; Protocol Last Admin: 01/21/18 02:11 Dose: 100 mls/hr Vancomycin HCl 1 gm/ Sodium (Chloride) 250 mls @ 250 mls/hr IVPB Q12H [facility]; Protocol Last Admin: 01/21/18 07:02 Dose: Not Given Dextrose/Lactated Ringer's (Dextrose 5%/Lactated Ringer's) 1,000 mls @ 75 mls/hr IV .[id number] [facility] Stop: 01/22/18 07:02 Potassium Chloride (Potassium Chloride 20 Meq/100 Ml) 100 mls @ 50 mls/hr IVPB Q2 [facility] Stop: 01/21/18 11:59 Pantoprazole Sodium (Protonix Inj) 40 mg IVP DAILY [facility] Last Admin: 01/20/18 08:42 Dose: 40 mg - Labs Labs: 01/21/18 04:30 01/21/18 04:30 PT 18.1 Seconds (9.8-13.1) H 01/20/18 16:38 INR 1.6 01/20/18 16:38 APTT 28.6 Seconds (25.6-37.1) 01/20/18 16:38 - Constitutional Appears: No Acute Distress - Head Exam Head Exam: ATRAUMATIC, NORMOCEPHALIC - ENT Exam ENT Exam: Normal External Ear Exam - Neck Exam Neck Exam: Normal Inspection - Respiratory Exam Additional comments: intubated - Cardiovascular Exam Cardiovascular Exam: Tachycardia - GI/Abdominal Exam GI & Abdominal Exam: Soft. absent: Distended, Firm, Guarding, Rigid, Tenderness, Rebound - Extremities Exam Extremities Exam: absent: Calf Tenderness, Pedal Edema Additional comments: ecchymosis on B/L UE - Neurological Exam Neurological Exam: absent: Alert, Awake Assessment and Plan - Assessment and Plan (Free Text) Assessment: 57M w. hx of UC now with free air 2/2 toxic megacolon and pancytopenia -Pt needs emergent surgery for subtotal colectomy, however it would be unsafe to proceed to OR with current thrombocytopenia -Plts need to be >50K for OR and need to be >20K post-op, however this is currently not feasible given limited supply of plts -Case has been d/w blood bank which is in process of trying to obtain adequate supply of plts -Transfer requests to [facility] and [facility] have been declined -Awaiting to hear back from [facility] regarding possible transfer -Recommendations for interim management: -Decrease IVF 75cc/hr -Wean propofol as tolerated -Titrate levo prn for Systolic >90 or MAP >65 -Strict Is:Os, target U/O >0.5cc/kg/hr -Case d/w attending Devaughn PGY4
[2018-01-21] MEDS: Micafungin 100 MG in Sodium Chloride 0.9% 100 ML IVPB SCH (08:35)
[2018-01-21 08:52] LABS: INR 1.7; PROTHROMBIN TIME 19.3 Seconds (9.8-13.1)
[2018-01-21 08:55] LABS: PARTIAL THROMBOPLASTIN TIME 35.6 Seconds (25.6-37.1)
[2018-01-21 09:39] LABS: VENOUS BLOOD GAS BASE EXCESS -6.1 mmol/L (0.0-2.0); VENOUS BLOOD GAS PCO2 58 mmHg (40-60); VENOUS BLOOD GAS PO2 44 mm/Hg (30-55)
[2018-01-21] MEDS: Potassium Chloride 20 mEq 100 ML IVPB SCH ×2 (09:45→12:12)
--- NOTE | 2018-01-21 10:00 | RAD ---
Date of service: 01/21/2018 HISTORY: ETT placement COMPARISON: No prior. FINDINGS: LUNGS: No active pulmonary disease. PLEURA: No significant pleural effusion identified, no pneumothorax apparent. CARDIOVASCULAR: Normal heart size. ET tube positioned 3.5 cm above the tracheal polly. Nasogastric tube appropriately positioned in the upper abdomen. No congestive change. OSSEOUS STRUCTURES: No significant abnormalities. VISUALIZED UPPER ABDOMEN: Normal. OTHER FINDINGS: None. IMPRESSION: ET tube tip 3.5 cm above the tracheal polly. No acute infiltrate
--- NOTE | 2018-01-21 11:24 | CP.CCUPN ---
CCU Subjective - Physician Review Subjective (Free Text): RASS neg 5, off Propofol last 3 hours, remains obtunded, on Levophed at 2.5 mcg dose, has recd 2 units Platelets overnight and completing 1st of 2 units PRBCs ordered. Fluids reduced and changed to D5LR at 75ml/hr, fluid balance shows 8 liters positive last 24H. Other vitals and I/O's reviewed. Tmax 100.5F yesterday, now 99F, SBP 95 -110s, HR 117 sinus, RR 20-21 ; approx. 1775 ml urine output overnight. ROS: No other pertinent negs or positives on 10+ system review- unobtainable due to sedation PMSFH: All other Nursing and physician documentation reviewed to date; no new pertinent info noted relevant to current medical problems. EXAM- HEENT: no icterus, no gaze preference, Pupils 3 mm and reactive NECK: No JVD visible, supple, carotids equal upstroke bilat/no bruit CHEST: clear bilateral BS , no wheezes audible HEART: regular, distant, tachy S1S2, no rubs ABD: softly and nontender, no guarding, more rotund and distended this AM than yesterdays exam, no organomegaly, BS absent. EXT: +edema, no calf tenderness or palpable cords, distal pulses intact and symmetrical. L femoral vein TLC. NEURO: minimal tone, minor withdrawal of limbs to deep pain. SKIN: no rashes, warm and dry, vitiligineous lesions over mid-forehead LABS: WBC= 0.6 HGB= 8.0 PLTs= 36K INR = 1.6 7.27/44/128 Na= 150 K= 3.4 CL= 125 HCO3=18 BUN/Cr= 15/0.4 BS= 51 Lactate= 3.0 from 4.8 and 5.5 yesterday CXR: ETT position OK above polly, clear bilat lung ac, gastric air prominent with hyperlucent air under both HDs. (my interp) IMPRESSION / MAJOR PROBLEMS NOW: 1. Acute Resp Failure 2 AMS / Sepsi sencephalopathy 2. Bowel perforation 2 UC 3. Severe Sepsis, with Shock, and lactic acidosis: etiology r/o 2 #2. 4. Pancytopenia 2 recent immunosuppressive therapy versus other Bone Marrow dysplastic disorder, Atypical Viral infection. PLAN: 1. Needs more platelets for transfusion, regardless of transfer acceptance to a tertiary facility. 2. IVFs decreased, Levophed at minimal doses. Renal function remains normal. 3. Empiric antibiotic/antifungal/antiviral tx: Liliana/Micafungin/Acyclovir/Vanco/Flagyl. 4. No changes in MV support. 5. Granix to continue. Time spent with this patient did not overlap with any other provider's medical or critical care time. Additionally the code selected for the services rendered in this note includes the time spent: talking to the patients family, ass ociated physicians and reviewing hospital data/results not listed here which extended to a total of 45 minutes of critical care. CCU Objective - Vital Signs / Intake & Output Vital Signs (Last 4 hours): Vital Signs Temp Pulse Resp BP Pulse Ox 01/21/18 08:00 98.8 F 117 H 13 112/62 97 Intake and Output (Last 8hrs): Intake & Output 01/20/18 01/21/18 01/21/18 22:59 06:59 14:59 Intake Total 5225 3988 128 Output Total 575 1450 Balance 4650 2538 128 Intake: IV 3554 1722 128 Intake, Piggyback 450 550 Blood Product 1021 1616 Apheresis Plts Acda Lr 316 Irr 2nd Unit [id number] Apheresis Plts Acda Lr 200 Irr 3rd Unit [id number] Red Blood Cells Cpd As1 325 Lr Unit [id number] Red Blood Cells Cpd As1 325 Lr Unit [id number] Other 200 100 Apheresis Plts Acda Lr 100 Irr 2nd Unit [id number] Apheresis Plts Acda Lr 100 Irr 3rd Unit [id number] Red Blood Cells Cpd As1 50 Lr Unit [id number] Red Blood Cells Cpd As1 50 Lr Unit [id number] Output: Gastric Amount 250 Nares 250 Urine 575 1200 Urethral (Reyes) 575 1200 Other: # Bowel Movements 1 - Physical Exam Psychiatric: Positive for: Alert
--- NOTE | 2018-01-21 12:05 | CP.PCM.PN ---
Subjective - Date & Time of Evaluation Date of Evaluation: 01/21/18 Time of Evaluation: 12:05 - Subjective Subjective: Patient seen and examined today. Patient is intubated, febrile and hypotensive on pressor Emergent surgery is on hold due to thrombocytopenia and inadequate supply of platelets. Objective - Vital Signs/Intake and Output Vital Signs (last 24 hours): Temp Pulse Resp BP Pulse Ox 98.8 F 117 H 13 112/62 97 01/21/18 08:00 01/21/18 08:00 01/21/18 08:00 01/21/18 08:00 01/21/18 08:00 Intake and Output: 01/21/18 01/21/18 06:59 18:59 Intake Total 5654 128 Output Total 1450 Balance 4204 128 - Medications Medications: Current Medications Acetaminophen (Tylenol 650 Mg Supp) 650 mg MN ONCE PRN PRN Reason: Fever >100.4 F Last Admin: 01/20/18 21:21 Dose: 650 mg Dimethicone (Proshield Plus Skin Protectant) 1 applic TOP Q8 PRN PRN Reason: Excoriation Last Admin: 01/21/18 01:34 Dose: 1 applic Metronidazole (Flagyl 500mg/100ml Ns) 100 mls @ 100 mls/hr IVPB Q8 [facility]; Protocol Last Admin: 01/21/18 09:49 Dose: 100 mls/hr Micafungin Sodium 100 mg/ (Sodium Chloride) 100 mls @ 100 mls/hr IVPB DAILY [facility]; Protocol Last Admin: 01/21/18 08:35 Dose: 100 mls/hr Acyclovir 500 mg/ Sodium (Chloride) 100 mls @ 100 mls/hr IV Q8@0200,1000,1800 [facility]; Protocol Last Admin: 01/21/18 01:31 Dose: 100 mls/hr Meropenem 1 gm/ Sodium (Chloride) 100 mls @ 100 mls/hr IVPB Q8 [facility]; Protocol Last Admin: 01/21/18 08:46 Dose: 100 mls/hr Vancomycin HCl 1 gm/ Sodium (Chloride) 250 mls @ 250 mls/hr IVPB Q12H [facility]; Protocol Last Admin: 01/21/18 07:02 Dose: Not Given Dextrose/Lactated Ringer's (Dextrose 5%/Lactated Ringer's) 1,000 mls @ 75 mls/hr IV .[id number] [facility] Stop: 01/22/18 07:02 Pantoprazole Sodium (Protonix Inj) 40 mg IVP DAILY [facility] Last Admin: 01/21/18 08:45 Dose: 40 mg - Labs Labs: 01/21/18 04:30 01/21/18 04:30 PT 19.3 Seconds (9.8-13.1) H 01/21/18 08:32 INR 1.7 01/21/18 08:32 APTT 35.6 Seconds (25.6-37.1) 01/21/18 08:32 - Additional Findings Additional findings: - Constitutional Appears: ill, s/p intubated - Head Exam Head Exam: ATRAUMATIC, - Neck Exam Neck Exam: Normal Inspection - Respiratory Exam Additional comments: intubated - Cardiovascular Exam Cardiovascular Exam: Tachycardia - GI/Abdominal Exam GI & Abdominal Exam: Soft. absent: Distended, Firm, Tenderness, - Extremities Exam Extremities Exam: absent: Calf Tenderness, Pedal Edema Additional comments: ecchymosis and swelling on B/L UE - Neurological Exam Neurological Exam: absent: Alert, Awake Assessment and Plan - Assessment and Plan (Free Text) Assessment: Assessment: 57 y/o male with pmhx of UC initially presented with abdominal pain and bloody BM's, found to have colitis and pancytopenia s/p BM biopsy. Receiving empiric antibiotics for neutropenic fever and IV Copper for Copper deficiency. s/p intubated on 01/19/18 . Has has free air on abdomen likely secondary to toxic colitis/UC flare. Plan: -Surgery on board. Emergent surgery is hold due to severe thrombocytopenia and inadequate supply of platelets. -Transfer requests to [facility] have been declined -Surgery team contacted [facility] regarding possible transfer -ID Consulted: Empiric ABX, antifungal and antiviral tx. -Hem/onc on board. -Bone Marrow Biopsy (final report): Bone marrow biopsy show low for the age cellularity. Trilineage hemotopoiesis. Megakaryocytes are seen. Flow cytometry analysis shows immunophenotypic evidence of left shifted myeloid maturation and <1% myeloblasts. Discussed case with Dr. Aubree Samuels, [id number]
[2018-01-21 12:27] VITALS: TEMP 100.5
[2018-01-21 15:19] VITALS: BP 133/69; PULSE 121; RESP 13; O2SAT 96
== END 2018-01-21 15:30 | disposition short-term general hospital (02) | DRG 552 ==
LOC: H.ER 21:12 → H.ERHOLD 01-05 00:49 → H.MEDSURG1 01-05 02:46 → H.TEL 01-14 14:15 → H.ICU/CCU 01-19 13:27
PROVIDERS: ADMIT Family Medicine; ATTEND Family Medicine
PROC: 30233N1 Transfusion of Nonautologous Red Blood Cells into Peripheral Vein, Percutaneous Approach (ICD-10-PCS; 2018-01-06)
PROC: 07DR3ZX Extraction of Iliac Bone Marrow, Percutaneous Approach, Diagnostic (ICD-10-PCS; principal; 2018-01-07)
PROC: 6A550Z2 Pheresis of Platelets, Single (ICD-10-PCS; 2018-01-13)
PROC: 06HY33Z Insertion of Infusion Device into Lower Vein, Percutaneous Approach (ICD-10-PCS; 2018-01-19)
PROC: 3E03329 Introduction of Other Anti-infective into Peripheral Vein, Percutaneous Approach (ICD-10-PCS; 2018-01-19)
PROC: 0BH17EZ Insertion of Endotracheal Airway into Trachea, Via Natural or Artificial Opening (ICD-10-PCS; 2018-01-19)
PROC: 30233K1 Transfusion of Nonautologous Frozen Plasma into Peripheral Vein, Percutaneous Approach (ICD-10-PCS; 2018-01-20)
DX: K51.811 Other ulcerative colitis with rectal bleeding (principal); L89.312 Pressure ulcer of right buttock, stage 2; A41.9 Sepsis, unspecified organism; R65.20 Severe sepsis without septic shock; R40.20 Unspecified coma; D61.818 Other pancytopenia; K52.1 Toxic gastroenteritis and colitis; D69.59 Other secondary thrombocytopenia; E87.2 Acidosis; G93.41 Metabolic encephalopathy; D68.8 Other specified coagulation defects; E86.0 Dehydration; E61.0 Copper deficiency